=== PATIENT | male | born 1955 | race Caucasian/White ===

== ENCOUNTER 2019-10-19 07:57 | Outpatient (CLI) | payer MEDICARE, SELFPAY ==
[2019-10-19 08:23] LABS: INR 2.4; Prothrombin Time 24.4 Seconds (9.64-11.0)
[2019-10-19 08:44] LABS: Cholesterol 142 mg/dL (0-200); HDL Direct 33 mg/dL (40-60); LDL Cholesterol Calculated 90 mg/dL (<130); Triglycerides 93 mg/dL (0-150)
== END 2019-10-19 07:58 | disposition home or self-care (01) ==
PROVIDERS: PCP Family Medicine; Visit Provider Family Medicine
DX: I48.91 Unspecified atrial fibrillation (principal); Z79.01 Long term (current) use of anticoagulants; I25.10 Atherosclerotic heart disease of native coronary artery without angina pectoris
CPT/HCPCS: 36415; 80061; 85610

== ENCOUNTER 2020-02-06 07:34 | Outpatient (RCR) | payer MEDICARE, SELFPAY ==
[2019-12-08 07:57] LABS: INR 2.6; Prothrombin Time 25.6 Seconds (9.64-11.0)
[2020-02-06 08:01] LABS: INR 2.8; Prothrombin Time 27.9 Seconds (9.64-11.0)
== END 2020-03-07 23:59 | disposition home or self-care (01) ==
LOC: CHSLAB 07:34
PROVIDERS: PCP Family Medicine; Visit Provider Internal Medicine Cardiovascular Disease
DX: I48.91 Unspecified atrial fibrillation (principal); Z79.01 Long term (current) use of anticoagulants
CPT/HCPCS: 36415; 85610

== ENCOUNTER 2020-05-02 08:44 | Outpatient (CLI) | payer MEDICARE, SELFPAY ==
--- NOTE | 2020-05-02 09:15 | ECG_ITS ---
Measurements Intervals [place] Rate: 66 P: 36 [place]: 206 QRS: 49 QRSD: 102 T: 93 QT: 382 QTc: 403 Interpretive Statements SINUS RHYTHM ANTEROSEPTAL INFARCT, AGE INDETERMINATE BORDERLINE ST-T WAVE ABNORMALITY- HIGH LATERAL LEADS ABNORMAL ECG Electronically Signed On 05-02-2020 10:11:46 CDT by Andrew Richardson D.O.
[2020-05-02 10:14] LABS: Anion Gap 6 mmol/L (8-16); Blood Urea Nitrogen 15 mg/dL (7-18); Calcium 8.7 mg/dL (8.5-10.1); Carbon Dioxide 31 mmol/L (21-32); Chloride 103 mmol/L (98-108); Estimated Glomerular Filt Rate > 60; Glucose 106 mg/dL (70-99); Osmolality Calculated 290 mOsm/kg (285-295); Potassium 4.4 mmol/L (3.5-5.1); Sodium 140 mmol/L (136-145)
== END 2020-05-02 08:45 | disposition home or self-care (01) ==
PROVIDERS: PCP Family Medicine
DX: G56.02 Carpal tunnel syndrome, left upper limb (principal); Z01.818 Encounter for other preprocedural examination
CPT/HCPCS: 36415; 80048; 93005

== ENCOUNTER 2020-06-04 08:19 | Outpatient (RCR) | payer MEDICARE, SELFPAY ==
[2020-03-09 08:47] LABS: Prothrombin Time 59.4 Seconds (9.64-11.0)
[2020-03-09 09:12] LABS: INR 6.1
[2020-03-12 07:43] LABS: INR 1.6; Prothrombin Time 16.3 Seconds (9.64-11.0)
[2020-03-12 07:49] LABS: Hemoglobin A1C 6.7 % (<5.7)
[2020-03-19 08:03] LABS: INR 2.1; Prothrombin Time 21.5 Seconds (9.64-11.0)
[2020-04-25 09:25] LABS: INR 3.3; Prothrombin Time 32.3 Seconds (9.64-11.0)
[2020-05-30 09:16] LABS: Prothrombin Time 50.3 Seconds (9.64-11.0)
[2020-05-30 09:28] LABS: INR 5.2
[2020-06-04 08:37] LABS: INR 3.2
== END 2020-06-07 23:59 | disposition home or self-care (01) ==
LOC: CHSLAB 08:19
PROVIDERS: PCP Family Medicine; Visit Provider Internal Medicine Cardiovascular Disease
DX: I48.91 Unspecified atrial fibrillation (principal); Z79.01 Long term (current) use of anticoagulants; E11.9 Type 2 diabetes mellitus without complications
CPT/HCPCS: 36415; 83036; 85610

== ENCOUNTER 2020-08-13 10:25 | Outpatient (CLI) | payer MEDICARE, SELFPAY ==
[2020-08-15 18:59] LABS: Hepatitis A Antibody IgM Nonreactive; Hepatitis B Core Antibody Nonreactive (Nonreactive); Hepatitis B Surface Antigen Nonreactive (Nonreactive); Hepatitis C Signal to Cutoff 0.01 ratio (<1.00); Hepatitis C Virus Antibody Nonreactive (Nonreactive)
== END 2020-08-13 10:26 | disposition home or self-care (01) ==
PROVIDERS: PCP Family Medicine; Visit Provider Family Medicine
DX: Z11.59 Encounter for screening for other viral diseases (principal); R11.0 Nausea
CPT/HCPCS: 36415; 80074

== ENCOUNTER 2020-08-20 09:08 | Outpatient (RCR) | payer MEDICARE, SELFPAY ==
[2020-06-13 14:11] LABS: INR 3.1; Prothrombin Time 30.7 Seconds (9.64-11.0)
[2020-07-16 10:11] LABS: INR 4.1; Prothrombin Time 41.9 Seconds (9.50-12.10)
[2020-07-24 09:05] LABS: INR 1.6; Prothrombin Time 17.7 Seconds (9.50-12.10)
[2020-08-20 09:32] LABS: INR 2.7; Prothrombin Time 28.6 Seconds (9.50-12.10)
== END 2020-09-11 23:59 | disposition home or self-care (01) ==
LOC: CHSLAB 09:08
PROVIDERS: PCP Family Medicine; Visit Provider Internal Medicine Cardiovascular Disease
DX: I48.91 Unspecified atrial fibrillation (principal); Z79.01 Long term (current) use of anticoagulants
CPT/HCPCS: 36415; 85610

== ENCOUNTER 2020-12-11 08:21 | Outpatient (RCR) | payer MEDICARE, SELFPAY ==
[2020-09-27 09:30] LABS: INR 2.6; Prothrombin Time 26.5 Seconds (9.50-12.10)
[2020-11-05 08:58] LABS: INR 2.9; Prothrombin Time 29.3 Seconds (9.50-12.10)
[2020-12-11 08:51] LABS: INR 2.3; Prothrombin Time 23.6 Seconds (9.50-12.10)
== END 2020-12-26 23:59 | disposition home or self-care (01) ==
LOC: CHSLAB 08:21
PROVIDERS: PCP Family Medicine; Visit Provider Internal Medicine Cardiovascular Disease
DX: I48.91 Unspecified atrial fibrillation (principal)
CPT/HCPCS: 36415; 85610

== ENCOUNTER 2021-03-11 12:15 | Outpatient (CLI) | payer MEDICARE, SELFPAY ==
--- NOTE | ~2021-03-11 | US_ITS ---
EXAMINATION: US arterial ankle brachial ind DATE: 03/11/2021 12:51 INDICATION: Peripheral vascular disease, unspecified. TECHNIQUE: Segmental pressures and plethysmographic and Doppler waveforms of the brachial and lower e xtremity arteries were obtained. COMPARISON: None. FINDINGS: Right and left brachial artery pressures of 150 mm Hg and 153 mm Hg, respectively, are concordant (no rmal difference <= 30 mmHg). The right ankle-brachial index (LEANA) is 0.99 (normal >= 0.9-1.0). The right great toe-brachial index (TBI) is 0.44 (normal >= 0.65). Arterial Doppler waveforms are biphasic at the ankle. The left LEANA could not be measured due to inability to cuff-occlude the arteries. The left TBI is 0.4 7. Arterial Doppler waveforms are biphasic at the ankle. IMPRESSION: 1. Decreased TBIs, borderline decreased right LEANA, and nondiagnostic left LEANA, consistent with arteri al occlusive disease. Reviewed, dictated and finalized at location A. IMPRESSION: 1. Decreased TBIs, borderline decreased right LEANA, and nondiagnostic left LEANA, consistent with arterial occlusive disease.
== END 2021-03-11 12:16 | disposition home or self-care (01) ==
LOC: CHSIMG 12:17
PROVIDERS: PCP Family Medicine; Visit Provider Family Medicine
DX: I73.9 Peripheral vascular disease, unspecified (principal)
CPT/HCPCS: 93922

== ENCOUNTER 2021-03-18 07:24 | Outpatient (CLI) | payer MEDICARE, SELFPAY ==
[2021-03-18 08:18] LABS: INR 1.8; Prothrombin Time 18.2 Seconds (9.50-12.10)
[2021-03-18 11:06] LABS: Alanine Aminotransferase 44 U/L (16-63); Alkaline Phosphatase 91 U/L (46-116); Anion Gap 10 mmol/L (8-16); Aspartate Amino Transferase 23 U/L (15-37); Bilirubin,Total 0.6 mg/dL (0.00-1.00); Blood Urea Nitrogen 16 mg/dL (7-18); Calcium 9.1 mg/dL (8.5-10.1); Carbon Dioxide 27 mmol/L (21-32); Chloride 103 mmol/L (98-108); Cholesterol 122 mg/dL (0-200); Estimated Glomerular Filt Rate > 60; Glucose 126 mg/dL (70-99); HDL Direct 31 mg/dL (40-60); LDL Cholesterol Calculated 72 mg/dL (<130); Osmolality Calculated 293 mOsm/kg (285-295); Potassium 4.4 mmol/L (3.5-5.1); Sodium 140 mmol/L (136-145); Total Protein 7.2 g/dL (6.4-8.2); Triglycerides 97 mg/dL (0-150)
[2021-03-18 13:05] LABS: Creatinine Urine 70.39 mg/dL (40-278); Hemoglobin A1C 6.5 % (<5.7); MALB Creatinine Ratio 18.4 mg/g (0-30); Microalbumin Urine Random < 13.0 mg/L
== END 2021-03-18 07:25 | disposition home or self-care (01) ==
LOC: CHSIMG 07:28
PROVIDERS: PCP Family Medicine; Visit Provider Family Medicine
DX: E11.9 Type 2 diabetes mellitus without complications (principal); I48.91 Unspecified atrial fibrillation; I73.9 Peripheral vascular disease, unspecified
CPT/HCPCS: 36415; 80053; 80061; 82043; 83036; 85610

== ENCOUNTER 2021-03-19 08:16 | Outpatient (CLI) | payer MEDICARE, SELFPAY ==
--- NOTE | ~2021-03-19 | CT_ITS ---
EXAMINATION: CTA abd aorta runoff DATE: 03/19/2021 09:01 INDICATION: Peripheral vascular disease, unspecified TECHNIQUE: Computed tomographic angiography (CTA) of the abdomen, pelvis, and both lower extremities was performed with 150 mL Omnipaque-350 intravenous contrast. The dose-length product (DLP) was 1683. 82 mGy-cm. Maximum intensity projection 3D-reconstructions of the arteries were created by the techno logist on a separate workstation. Automated exposure control and iterative reconstruction technique w ere employed. COMPARISON: None. FINDINGS: ABDOMINAL AORTA AND ITS BRANCHES: There is minimal calcified atherosclerosis of aorta. There is aortic no dissection or aneurysm. The l eft hepatic artery arises from the celiac axis. The right hepatic artery arises from the superior mes enteric artery. The pancreatic duodenal artery is a branch of the right hepatic artery. There are sin gle renal arteries bilaterally. There is calcified atherosclerosis without hemodynamically significan t stenosis of the inferior mesenteric artery. PELVIC VASCULATURE: There is calcified atherosclerosis without hemodynamically significant stenosis in the common iliac a rteries. External iliac arteries are unremarkable. There is calcified atherosclerosis with mild steno sis of bilateral internal iliac arteries. RIGHT LOWER EXTREMITY VASCULATURE: There is calcified atherosclerosis without hemodynamically significant stenosis of the distal common femoral artery. The profunda femoral artery demonstrates mild atherosclerosis without hemodynamically significant stenosis. There is minimal calcified atherosclerosis of the distal superficial femoral a rtery, popliteal artery, and the tibial peroneal trunk without hemodynamically significant stenosis. There are segmental areas of severe stenosis in the anterior tibial artery. There are some areas of s evere stenosis in the proximal peroneal artery which is otherwise normal. The posterior tibial artery is unremarkable. There is a three-vessel runoff at the ankle. LEFT LOWER EXTREMITY VASCULATURE: There is calcified atherosclerosis without hemodynamically significant stenosis of the common femoral there is mild atherosclerosis of the profunda femoral artery. There is multifocal atherosclerosis an d mild stenosis of the superficial femoral artery and the popliteal artery. There is moderate stenosi s of the tibioperoneal trunk. The anterior tibial artery demonstrates multiple segmental areas of sev ere stenosis. There are short segments of severe stenosis in the posterior tibial artery. The peronea l artery is unremarkable. There is a three-vessel runoff at the ankle. ADDITIONAL FINDINGS: The lung bases are clear. The heart size is normal. The liver, spleen, pancreas, gallbladder, and adr enal glands are normal. The right kidney is unremarkable. There is a 3 mm nonobstructing stone of the left kidney. No pathologically enlarged abdominal or pelvic lymph nodes are identified. There is no free intraperitoneal gas or evidence of bowel obstruction. There is a fat-containing left inguinal he rnia. IMPRESSION: 1. Peripheral vascular disease as detailed above. Reviewed, dictated and finalized at location B.
== END 2021-03-19 08:17 | disposition home or self-care (01) ==
LOC: CHSIMG 08:17
PROVIDERS: PCP Family Medicine; Visit Provider Family Medicine
DX: I73.9 Peripheral vascular disease, unspecified (principal); I48.91 Unspecified atrial fibrillation; E11.9 Type 2 diabetes mellitus without complications
CPT/HCPCS: 75635; Q9967

== ENCOUNTER 2021-03-26 07:38 | Outpatient (RCR) | payer MEDICARE, SELFPAY ==
[2021-01-10 07:55] LABS: INR 3.8; Prothrombin Time 37.8 Seconds (9.50-12.10)
[2021-01-18 08:07] LABS: INR 2.8; Prothrombin Time 28.2 Seconds (9.50-12.10)
[2021-02-19 08:00] LABS: INR 2.1; Prothrombin Time 21.7 Seconds (9.50-12.10)
[2021-03-26 08:03] LABS: INR 2.3; Prothrombin Time 23.2 Seconds (9.50-12.10)
== END 2021-04-10 23:59 | disposition home or self-care (01) ==
LOC: CHSLAB 07:38
PROVIDERS: PCP Family Medicine; Visit Provider Internal Medicine Cardiovascular Disease
DX: I48.91 Unspecified atrial fibrillation (principal)
CPT/HCPCS: 36415; 85610

== ENCOUNTER 2021-05-29 08:00 | Outpatient (RCR) | payer MEDICARE, SELFPAY ==
[2021-04-26 09:36] LABS: Prothrombin Time 20.4 Seconds (9.50-12.10)
[2021-05-29 08:22] LABS: INR 3.4
== END 2021-07-25 23:59 | disposition home or self-care (01) ==
LOC: CHSLAB 08:00
PROVIDERS: PCP Family Medicine; Visit Provider Internal Medicine Cardiovascular Disease
DX: I48.91 Unspecified atrial fibrillation (principal)
CPT/HCPCS: 36415; 85610

== ENCOUNTER 2021-06-26 09:08 | Outpatient (CLI) | payer MEDICARE, SELFPAY ==
[2021-06-26 10:00] LABS: SARS-CoV-2 RNA PCR Positive (Negative)
== END 2021-06-26 09:09 | disposition home or self-care (01) ==
LOC: CHSLAB 09:12
PROVIDERS: PCP Family Medicine; Visit Provider Nurse Practitioner Family
DX: U07.1 COVID-19 (principal)
CPT/HCPCS: C9803; U0003; U0005

== ENCOUNTER 2021-06-28 09:05 | Outpatient (CLI) | payer MEDICARE, SELFPAY ==
--- NOTE | 2021-06-28 09:20 | PC.NURSE ---
Pt to room 211 amb with spouse. Oriented to room. Regeneron infusion explained. Consent read and signed by patient. Pt has no questions or complaints. Up in chair. Reminded to call with needs.
[2021-06-28] MEDS: ACETAMINOPHEN 325 MG TABLET 650 MG PO (09:40)
[2021-06-28 09:50] VITALS: BP 122/61; PULSE 70; RESP 16; TEMP 36.1; O2SAT 94
[2021-06-28] MEDS: diphenhydrAMINE HCl CAP 25 MG CAPSULE PO (10:16)
[2021-06-28] MEDS: FAMOTIDINE 20 MG TABLET PO (10:16)
--- NOTE | 2021-06-28 11:39 | PC.NURSE ---
Pt has no questions or complaints. Tolerated infusion well. Discharge to home amb with spouse.
== END 2021-06-28 09:06 | disposition home or self-care (01) ==
LOC: CHSTREATRM 09:08
PROVIDERS: PCP Nurse Practitioner Family; Visit Provider Nurse Practitioner Family
DX: U07.1 COVID-19 (principal)
CPT/HCPCS: A9270; J7050; M0243; Q0244

== ENCOUNTER 2021-07-02 14:15 | Outpatient (CLI) | payer MEDICARE, SELFPAY ==
--- NOTE | ~2021-07-02 | XR_ITS ---
EXAMINATION: XR chest 2V DATE: 07/02/2021 14:33 INDICATION: Shortness of breath and cough. TECHNIQUE: Frontal and lateral views of the chest were obtained. COMPARISON: CT 03/19/2021 FINDINGS: There are airspace opacities in all lung zones bilaterally with a peripheral predominance. No pleural effusion or pneumothorax. The heart size is normal. Median sternotomy wires and mediastina l surgical clips are seen, likely from prior coronary artery bypass grafting. IMPRESSION: 1. Diffuse lung disease, consistent with COVID-19 pneumonia. Reviewed, dictated and finalized at location B. G OPERATOR
--- NOTE | 2021-07-02 14:45 | ECG_ITS ---
Measurements Intervals [place] Rate: 44 P: SD: 0 QRS: -3 QRSD: 103 T: 58 QT: 429 QTc: 368 Interpretive Statements SINUS RHYTHM WITH 2ND DEGREE AV BLOCK, 2:1 OR MOBITZ TYPE I OR II ANTEROSEPTAL INFARCT, AGE INDETERMINATE ST-T WAVE ABNORMALITY IN HIGH LATERAL LEADS- CONSIDER ISCHEMIA BASELINE WANDER- I, II, III, AVR, AVL, AVF ABNORMAL ECG Electronically Signed On 07-02-2021 16:41:24 TOUR GUIDE by Andrew Richardson D.O.
== END 2021-07-02 14:16 | disposition home or self-care (01) ==
LOC: CHSCARD 14:18
PROVIDERS: PCP Family Medicine; Visit Provider Nurse Practitioner Family
DX: U07.1 COVID-19 (principal)
CPT/HCPCS: 71046; 93005

== ENCOUNTER 2021-07-02 14:53 | Emergency (ER) | payer MEDICARE, SELFPAY ==
[2021-07-02] VITALS (9 sets, daily range): BP systolic 126–160; BP diastolic 50–90; PULSE 43–45; RESP 16–20; TEMP 36.6–37.3; O2SAT 84–98
--- NOTE | ~2021-07-02 | CT_ITS ---
EXAMINATION: CT diagnostic chest wo con DATE: 07/02/2021 17:19 INDICATION: Shortness of breath, hypoxia. Covid 19. TECHNIQUE: Computed tomography (CT) of the chest was performed without intravenous contrast. The dose -length product was 658.23 mGy-cm. Automated exposure control and iterative reconstruction technique were employed. COMPARISON: Chest x-ray dated 07/02/2021 FINDINGS: Cardiomegaly. No significant pleural or pericardial effusion. Multiple borderline sized med iastinal lymph nodes, likely reactive. There is atherosclerosis. No evidence of aneurysm. Cardiomegal y. There is widespread patchy groundglass opacification throughout both lungs, consistent with pneumonia . No endobronchial lesions. Status post median sternotomy for CABG. Mild thoracic spondylosis. IMPRESSION: 1. Widespread patchy groundglass opacification of both lungs, consistent with pneumonia. Reviewed, dictated and finalized at location A. OW AGENT IMPRESSION: 1. Widespread patchy groundglass opacification of both lungs, consistent with p neumonia.
[2021-07-02 15:58] LABS: Basophils Absolute Auto 0.01 K/mm3 (0.00-0.10); Basophils Percent Auto 0.1 % (0.0-1.0); Eosinophils Absolute Auto 0.04 K/mm3 (0.02-0.50); Eosinophils Percent Auto 0.5 % (1.0-6.0); Hematocrit 34.3 % (37.0-46.0); Hemoglobin 11.9 g/dL (12.4-15.3); Immature Granulocyte Absolute 0.07 K/mm3 (0.00-0.00); Immature Granulocyte Percent A 0.8 % (0.0-0.0); Lymphocytes Absolute Auto 0.42 K/mm3 (1.10-4.50); Lymphocytes Percent Auto 4.8 % (18.0-42.0); Mean Corpuscular HGB Conc 34.7 g/dL (32.0-36.0); Mean Corpuscular Hemoglobin 30.1 pg (27.0-31.0); Mean Corpuscular Volume 86.8 fL (78.0-102.0); Mean Platelet Volume 9.6 fl (8.7-11.0); Monocytes Absolute Auto 1.04 K/mm3 (0.10-0.90); Monocytes Percent Auto 11.8 % (2.0-11.0); Neutrophils Absolute Auto 7.3 K/mm3 (1.7-7.2); Platelet Count Result 279 K/mm3 (150-420); Red Blood Count 3.95 M/mm3 (4.70-6.10); Red Cell Distribution Width 13.6 % (11.6-14.4)
[2021-07-02] MEDS: DEXAMETHASONE SOD PHOS INJ 4 MG/ML VIAL IV PUSH (16:06)
[2021-07-02] MEDS: PROMETHAZINE HCL 25 MG/ML AMPUL IM (16:06)
[2021-07-02] MEDS: SODIUM CHLORIDE 0.9% IV 500 ML 999 ML IV CONT ×2 (16:06→18:09)
[2021-07-02 16:07] LABS: Alanine Aminotransferase 52 U/L (16-63); Albumin Level 2.6 g/dL (3.4-5.0); Alkaline Phosphatase 81 U/L (46-116); Anion Gap 13 mmol/L (8-16); Aspartate Amino Transferase 33 U/L (15-37); Bilirubin,Total 0.7 mg/dL (0.00-1.00); Blood Urea Nitrogen 14 mg/dL (7-18); Calcium 8.4 mg/dL (8.5-10.1); Carbon Dioxide 22 mmol/L (21-32); Chloride 92 mmol/L (98-108); Estimated CRCL calculation 65 ml/min; Estimated Glomerular Filt Rate > 60; Glucose 218 mg/dL (70-99); Lactic Acid Reflex 2.6 mmol/L (0.4-2.0); Osmolality Calculated 271 mOsm/kg (285-295); Potassium 3.8 mmol/L (3.5-5.1); Sodium 127 mmol/L (136-145); Total Protein 6.5 g/dL (6.4-8.2)
[2021-07-02] MEDS: ASPIRIN 325 MG ENTERIC TABLET PO (16:07)
[2021-07-02] MEDS: UMECLIDINIUM BROMIDE 62.5 MCG ELLIPTA 1 PUFF INHALATION (16:12)
[2021-07-02] MEDS: ALBUTEROL SULFATE (*SP) INHALER 2 PUFF INHALATION (16:12)
[2021-07-02 16:18] LABS: White Blood Count 8.8 K/mm3 (4.8-10.8)
[2021-07-02 16:41] LABS: INR > 8.0; Partial Thromboplastin Time 91.2 SEC (23.90-30.70); Prothrombin Time > 90.0 Seconds (9.64-11.0)
[2021-07-02 16:42] LABS: Base Excess ABG -0.3 mmol/L (0-2); Device ROOM AIR; HCO3 ABG 21.5 mmol/L (23-29); Modified Allen's Test Pass; Oxygen Content ABG 17.1 %vol (16.0-22.0); Oxygen Saturation ABG 96.1 % (95-97); Oxyhemoglobin 94.8 % (94-100); PCO2 ABG 27.4 mmHg (35-45); PO2 ABG 81.3 mmHg (75-85); Site Drawn LEFT RADIAL; Total Hemoglobin 12.8 g/dL (12.0-18.0); pH ABG 7.51 (7.35-7.45)
[2021-07-02] MEDS: PHYTONADIONE 5 MG TABLET 10 MG PO (16:49)
--- NOTE | 2021-07-02 17:23 | ECG_ITS ---
Measurements Intervals [place] Rate: 43 P: -15 IN: 154 QRS: -3 QRSD: 101 T: 147 QT: 677 QTc: 573 Interpretive Statements SINUS BRADYCARDIA ANTEROSEPTAL INFARCT, AGE INDETERMINATE CONSIDER INFERIOR INFARCT, AGE INDETERMINATE BASELINE ARTIFACT- I, II, III, AVR, AVL, AVF, V1-V6 ABNORMAL ECG Electronically Signed On 07-02-2021 19:29:02 HAND OR MACHINE PASTER by Andrew Richardson D.O.
[2021-07-02 17:29] LABS: Appearance Urine Clear (Clear); Bilirubin Urine 1+ (Negative); Color Urine Dark Yellow (Yellow); Glucose Urine UA Trace (Negative); Ketones Urine Trace (Negative); Leukocyte Esterase Ur Negative (Negative); Nitrate Urine Negative (Negative); Protein Urine 3+ (Negative); Specific Grav Ur >= 1.030 (1.010-1.020); Urobilinogen Urine 0.2 mg/dL (0.2-1.0)
[2021-07-02 17:36] LABS: Add Urine Microscopic? YES; Blood Urine Trace-Intact (Negative); RBC Urine 0-2 /hpf (0-2); Squamous Epithelial Cell Urine Few /hpf (Few); WBC Urine None seen /hpf (0-3)
[2021-07-02 17:37] LABS: Bacteria Urine 1+ /hpf; Mucus Urine Moderate /lpf
[2021-07-02 18:00] LABS: Reflex Lactic Acid Yes or No Add Lactic
--- NOTE | 2021-07-02 18:07 | ED.SOB ---
HPI - SOB/Dyspnea General Chief Complaint: Shortness of Breath/Dyspnea Stated Complaint: covid positive Time Seen by Provider: 07/02/21 14:55 Source: patient and RN notes reviewed Mode of arrival: ambulatory Limitations: no limitations History of Present Illness MD elicited complaint: shortness of breath Onset (ago): week(s) (3) Timing: progressively worsening Severity: moderate Exacerbating factors: exertion Relieving factors: oxygen and bronchodilators Known history of: other (covid-19) Associated symptoms: fever, cough, wheezing and nausea/vomiting Treatment prior to arrival: none Related Data Home oxygen amount: none Home Medications Medication Instructions Recorded Confirmed aspirin 81 mg tablet,delayed 81 mg PO DAILY 08/22/19 07/02/21 release atorvastatin 80 mg tablet 80 mg PO HS 08/22/19 07/02/21 carvedilol 6.25 mg tablet 6.25 mg PO Q12H 08/22/19 07/02/21 ezetimibe 10 mg tablet 10 mg PO DAILY 08/22/19 07/02/21 quinapril 20 mg tablet 20 mg PO DAILY 08/22/19 07/02/21 warfarin 4 mg tablet 8 mg PO DAILY tablet 08/22/19 07/02/21 metformin 1,000 mg PO BID 07/02/21 07/02/21 tamsulosin 0.4 mg PO DAILY 07/02/21 07/02/21 Allergies Allergy/AdvReac Type Severity Reaction Status Date / Time Penicillins Allergy Unknown Rash Verified 07/02/21 15:35 Review of Systems Review of Systems: All systems reviewed & are unremarkable except as noted in HPI and below Respiratory: Respiratory: Reports cough, Reports dyspnea and Reports wheezing PMFSH Past Medical History Medical History Anticoagulated on Coumadin CAD (coronary artery disease) Carpal tunnel syndrome DM2 (diabetes mellitus, type 2) Hyperlipidemia Hypertension Overweight Surgical History Surgical History H/O mechanical aortic valve replacement Hx of artificial heart valve replacement Hx of cataract surgery S/P triple vessel bypass Family History Family History Father , Age 81 Diabetes mellitus Lung cancer Mother , Age 89 Rheumatoid arthritis Social History Social History Smoking status: Former smoker Tobacco type: smokeless tobacco Smokeless tobacco user: chewing tobacco Additional smoking assessment comments: Quit Smokeless tobacco in 1999. Used for 25 years Additional living arrangements comments: . 1 adult child. Exam Const: General: no acute distress, alert and ill appearing Nutritional Appearance: obese Orientation/consciousness: patient oriented x3 HENMT: Head: normal to inspection Ears: external ears normal and TM's normal bilaterally General nose exam: Normal external nose present and Normal nares present Mouth: Yes lip normal and Yes moist mucous membranes Teeth and gingiva: dentition normal Throat: posterior oropharynx normal Eyes: Conjunctivae: conjunctivae normal Pupils: Equal, round and reactive pupils present EOM: EOMs intact bilaterally Neck: Neck: normal visual inspection and no lymphadenopathy Chest: Chest palpation & inspection: normal inspection of the chest Resp: Effort & Inspection: tachypneic Auscultation: crackles, rales, rhonchi and wheezes Cardio: Rate: bradycardic GI: GI Palp: Yes Soft to palpation and No Tenderness to palpation present (GI) Auscultation: normal bowel sounds : General: Yes bladder normal to palpation and Yes no CVA tenderness Back/Spine/Pelvis: Back: no CVA tenderness Skin: General skin exam: normal color Rashes: no rashes Neuro: General: patient oriented x3, moves all extremities, no meningeal signs, no focal motor deficits and CN's II-XI intact bilaterally Extrem: General: normal to inspection and no pedal edema Psych: Mental Status: mental status grossly normal Affect: normal affect Attitude: cooperative Tho
[2021-07-02] MEDS: AZITHROMYCIN 250 MG TABLET 500 MG PO (18:10)
[2021-07-02 18:19] LABS: Lactic Acid 2.3 mmol/L (0.4-2.0)
[2021-07-02 18:21] LABS: Troponin I 24.2 ng/L (0.00-60.4)
[2021-07-02] MEDS: GLUCAGON FOR INJ 1 MG VIAL IM (18:29)
--- NOTE | 2021-07-02 18:46 | PC.NURSE ---
Carisa Jolly called for ALS transport to [place].
[2021-07-02] MEDS: SODIUM CHLORIDE 0.9% IV 1,000 ML 150 ML IV CONT (18:59)
--- NOTE | 2021-07-02 19:30 | PC.NURSE ---
Took Pt report on Pt from Laisha RODRÍGUEZ. Pt. resting comfortable on stretcher at this time. Awaiting EMS for transport. No c./O pain or discomfort. 0 change in condition.
--- NOTE | 2021-07-02 19:54 | PC.NURSE ---
EMS here at this time Pt cont the same. Pt pkged for transport without incident.
[2021-07-02 22:40] LABS: Glucose Point of Care 283 mg/dl (65-105)
== END 2021-07-02 20:03 | disposition short-term general hospital (02) ==
PROVIDERS: Emergency Provider Emergency Medicine; PCP Family Medicine
DX: U07.1 COVID-19 (principal); R00.1 Bradycardia, unspecified; E86.0 Dehydration; J18.9 Pneumonia, unspecified organism; Z79.01 Long term (current) use of anticoagulants; I25.10 Atherosclerotic heart disease of native coronary artery without angina pectoris; E11.9 Type 2 diabetes mellitus without complications; E78.5 Hyperlipidemia, unspecified; I10 Essential (primary) hypertension; Z87.891 Personal history of nicotine dependence
CPT/HCPCS: 36415; 36600; 71250; 80053; 81001; 82805; 82948; 83605; 84484; 85025; 85610; 85730; 87040; 93005; 96361; 96365; 96372; 96375; 99285; A9270; J0696; J1100; J1610; J2550; J7030; J7040

== ENCOUNTER 2021-07-02 21:45 | Inpatient (IN) | payer MEDICARE, SELFPAY ==
--- NOTE | ~2021-07-02 | XR_ITS ---
EXAMINATION: XR chest 1V portable DATE: 07/05/2021 12:20 INDICATION: COVID pneumonia with increasing oxygen requirements TECHNIQUE: frontal view of the chest was obtained. COMPARISON: Chest radiograph and CT dated 07/02/2021 FINDINGS: Lung volumes appear decreased which may be due to more lordotic positioning the current study. Again seen are scattered patchy bilateral airspace opacities which appear to have progressed since the prio r study particularly in the left lung. No pleural effusion or pneumothorax. Cardiomegaly Median barnett otomy wires and mediastinal surgical clips are seen, likely from prior coronary artery bypass graftin g. Aortic valve repair. IMPRESSION: 1. Interval progression of bilateral scattered patchy airspace opacities consistent with worsening CO VID pneumonia. 2. Cardiomegaly. Reviewed, dictated and finalized at location A. ER SOUND IMPRESSION: 1. Interval progression of bilateral scattered patchy airspace opacities consis tent with worsening COVID pneumonia. 2. Cardiomegaly.
[2021-07-02 20:00] VITALS: BP 138/48; PULSE 44; RESP 18; TEMP 36.2; O2SAT 94
[2021-07-02] MEDS: INSULIN ASPART (*BKC) 100 UNITS/ML SUB-Q (21:50)
--- NOTE | 2021-07-02 21:51 | PM.IMHP ---
H&P: HPI History of Present Illness Date/Time: 07/02/21 21:51 this is a 66-year-old male patient who initially went to [facility] and was seen by Dr. Beltran who stated that the patient's heart rate was in the 30s and 40s and the patient was feeling dizzy. The ER physician at [facility] felt that the patient needed higher level care transfer the patient here. The patient stated that he was having symptoms for the last 3 weeks and tested positive for COVID-19 3 weeks ago. The patient stated that he is more short of breath. He stated that he did taken infusion at [facility] outpatient ace. He stated that did not help. He has had a cough and generalized weakness. He still has his taste and smell. H&H is 11.9 and 34.3. Patient's INR is greater than 8.0 today. PH 7.51 CO2 97.4. Sodium 127. Glucose 218. Lactic acid 2.6 and then 2.3. Blood sugar 218. Patient was noted to be positive for COVID on 06/26/2021. A chest chest CT was read as widespread patchy ground-glass opacities of both lungs, consistent with pneumonia. Chest x-ray was read as diffuse lung disease, consistent with COVID-19 pneumonia. The patient is being admitted for inpatient status on the date of service of 07/02/2021. Chief Complaint: Hypoxia and bradycardia Review of Systems Review of Systems: All systems reviewed & are unremarkable except as noted in HPI and below Constitutional: Constitutional: Reports as per HPI and Reports no additional constitutional complaints Eyes: Eyes: Reports as per HPI and Reports no additional eye complaints ENT: Reports system reviewed and no additional complaints, except as documented and Reports Normal hearing present Cardiovascular: Cardiovascular: Reports no additional cardiovascular complaints Respiratory: Respiratory: Reports no additional respiratory complaints and Reports no additional respiratory complaints Gastrointestinal: Gastrointestinal: Reports as per HPI and Reports no additional gastrointestinal complaints Musculoskeletal: Musculoskeletal: Reports no additional musculoskeletal complaints Integumentary/Breasts: Skin/Breast: Reports system reviewed and no additional complaints, except as docu and Reports as per HPI Neurologic: Reports system reviewed and no additional complaints, except as documented, Reports as per HPI and Reports Normal hearing present Psychiatric: Psychiatric: Reports no additional psychiatric complaints and Reports as per HPI Endocrine: Endocrine: Reports no additional endocrine complaints Hematologic/Lymphatic: Hematologic/Lymphatic: Reports no additional hematologic/lymphatic complaints Allergic/Immunologic: Allergic/Immunologic: Reports no additional allergic/immunologic complaints [facility] Past Medical History Medical History (Updated 07/02/21 @ 18:57 by Faisal Beltran MD) Anticoagulated on Coumadin CAD (coronary artery disease) Carpal tunnel syndrome DM2 (diabetes mellitus, type 2) Hyperlipidemia Hypertension Overweight Surgical History Surgical History (Updated 07/02/21 @ 21:57 by Mei Cosme NP) H/O mechanical aortic valve replacement History of carpal tunnel release Left hand Hx of artificial heart valve replacement Hx of cataract surgery S/P triple vessel bypass Family History Family History Father , Age 81 Diabetes mellitus Lung cancer CAD (coronary artery disease) Mother , Age 89 Rheumatoid arthritis Social History Social History (Updated 07/02/21 @ 22:00 by Mei Cosme NP) Social History: The patient lives at home with his . He has 1 biological child he is a former smoker. 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 He is a former smoker and also former smokeless tobacco. He denies any alcohol marijuana or illicit drugs. His is the durable power privacy attorney for healthcare. Code status full code Tobacco type: smokeless tobacco Smokeless tobacco user
--- NOTE | 2021-07-02 22:33 | PC.NURSE ---
Pt, direct transport from [place], arrived via stretcher at 2100.
[2021-07-02 22:41] LABS: Prothrombin Time 76.5 Seconds (11.1-14.7)
[2021-07-02 22:43] LABS: Alanine Aminotransferase 42 U/L (4-50); Albumin Level 3.4 g/dL (3.5-5.1); Alkaline Phosphatase 80 U/L (38-126); Anion Gap 9 mmol/L (8-16); Aspartate Amino Transferase 36 U/L (17-59); Bilirubin,Total 0.6 mg/dL (0.2-1.3); Blood Urea Nitrogen 16 mg/dL (9-20); Calcium 8.4 mg/dL (8.4-10.2); Carbon Dioxide 23 mmol/L (22-30); Chloride 91 mmol/L (98-107); Estimated Glomerular Filt Rate > 60; Glucose 281 mg/dL (65-110); Hemoglobin A1C 6.8 % (<5.7); Magnesium 1.4 mg/dL (1.6-2.3); Potassium 4.7 mmol/L (3.4-5.0); Sodium 123 mmol/L (137-145)
[2021-07-02 22:47] LABS: Alanine Aminotransferase 42 U/L (4-50)
[2021-07-02 22:49] LABS: INR 10.1
[2021-07-02] MEDS: PHYTONADIONE INJ 10 MG/ML AMP SUB-Q (22:58)
[2021-07-02] MEDS: REMDESIVIR 200 MG/NS 250 ML 200 MG/250 ML BAG 250 MG IVPB (23:00)
[2021-07-02 23:14] VITALS: BMI 36.8
[2021-07-03] VITALS (11 sets, daily range): BP systolic 129–162; BP diastolic 41–92; PULSE 43–80; RESP 16–27; TEMP 36.2–36.7; O2SAT 90–96
--- NOTE | 2021-07-03 04:01 | ADMGEN ---
This patient, Herminio Gil, was admitted to [facility] Surg Room 330-01. Patient/family oriented to hospital policies and general routines including ID bracelet, bed and alarms, visiting hours, pain management, procedures, bathroom and other care routines, personal items, smoking policy, room service/diet, and visiting hours. Information on how to activate the Rapid Response Team has been discussed. Patient/Family are encouraged to report perceived risks to care and to ask questions if they do not understand what they are told or what they should do.
[2021-07-03 06:44] LABS: Basophils Percent Auto 0.1 % (0.2-1.2); Hematocrit 33.2 % (42.0-52.0); Hemoglobin 11.7 g/dL (14.0-18.0); Immature Granulocyte Absolute 0.08 K/mm3 (0.00-0.031); Lymphocytes Absolute Auto 0.44 K/mm3 (0.9-3.2); Lymphocytes Percent Auto 5.3 % (18.3-44.2); Mean Corpuscular HGB Conc 35.2 g/dl (32-36); Mean Corpuscular Volume 88.1 fl (80-100); Mean Platelet Volume 9.7 fl (7.4-10.4); Monocytes Absolute Auto 0.8 K/mm3 (0.1-0.6); Neutrophils Percent Auto 83.6 % (45.5-73.1); Platelet Count Result 264 k/mm3 (150-375); Red Blood Count 3.77 M/mm3 (4.6-6.20); Red Cell Distribution Width 13.8 % (11.5-14.5); White Blood Count 8.3 K/mm3 (4.5-10.0)
[2021-07-03 06:54] LABS: Prothrombin Time 50.6 Seconds (11.1-14.7)
[2021-07-03 07:05] LABS: Alanine Aminotransferase 41 U/L (4-50); Estimated CRCL calculation 93 ml/min; Estimated Glomerular Filt Rate > 60; Lactate Dehydrogenase 919 U/L (313-618)
[2021-07-03 07:17] LABS: CRP 21.4 mg/dL (<1.0)
[2021-07-03 07:29] LABS: INR 5.9
[2021-07-03 08:27] LABS: Glucose Point of Care 230 mg/dl (65-105)
[2021-07-03 08:45] LABS: Alanine Aminotransferase 39 U/L (4-50); Estimated CRCL calculation 105 ml/min; Estimated Glomerular Filt Rate > 60
[2021-07-03] MEDS: ALBUTEROL SULFATE (*SP) INHALER 1 PUFF (08:45)
[2021-07-03] MEDS: ALBUTEROL SULFATE (*SP) AEROSOL 1 PUFF 2 PUFF INHALATION ×3 (08:46→20:40)
[2021-07-03] MEDS: lisinopriL 20 MG TABLET PO (09:22)
[2021-07-03] MEDS: DOCUSATE SODIUM 100 MG CAPSULE PO ×2 (09:22→17:29)
[2021-07-03] MEDS: TAMSULOSIN HCL 0.4 MG CAPSULE PO (09:22)
[2021-07-03] MEDS: EZETIMIBE 10 MG TABLET PO (09:22)
[2021-07-03] MEDS: metFORMIN HCL 500 MG TABLET 1000 MG PO ×2 (09:22→17:29)
[2021-07-03] MEDS: MAGNESIUM SULF 2 GM/WATER 50ML 2 GM/50 ML BAG IVPB (09:30)
[2021-07-03] MEDS: INSULIN ASPART (*BKC) 100 UNITS/ML SUB-Q ×3 (09:32→17:28)
[2021-07-03] MEDS: SODIUM CHLORIDE 0.9% IV 1,000 ML 75 ML IV CONT (10:24)
--- NOTE | 2021-07-03 11:35 | PM.IMPN ---
Progress Note: A&P Assessment and Plan (1) COVID-19: Code(s): U07.1 - COVID-19 Status: Acute Assessment and Plan: Tested positive for COVID-19 on the of this month, fully vaccinated with Pfizer since December Seen at [facility] and had been placed on 3 L per nasal cannula and received IVF Continue to monitor labs Supportive care with Oxygen supplement, albuterol inhaler, and Robitussin Self proning as tolerated Continue Remdesivir and dexamethasone x5 days (2) Bradycardia: Code(s): R00.1 - Bradycardia, unspecified Status: Inactive Assessment and Plan: Patient has been on Coreg, holding for now Asymptomatic at this point Monitor (3) BPH (benign prostatic hyperplasia): Code(s): N40.0 - Benign prostatic hyperplasia without lower urinary tract symptoms Status: Acute Assessment and Plan: Continue with tamsulosin (4) H/O mechanical aortic valve replacement: Code(s): Z95.2 - Presence of prosthetic heart valve Status: Acute Assessment and Plan: INR Patient's INR is greater than 8 on admission, 5.9 this a.m. S/p vitamin K, will repeat Patient stated that his western felt hat blocker wants him to be between 2 and 3 Daily PT INR Hold Coumadin for now (5) CAD (coronary artery disease): Code(s): I25.10 - Atherosclerotic heart disease of [place] coronary artery without angina pectoris Status: Acute Assessment and Plan: Continue with aspirin, statin Holding his Coreg for now (6) Hyperlipidemia: Code(s): E78.5 - Hyperlipidemia, unspecified Status: Acute Assessment and Plan: Continue with atorvastatin and Zetia (7) Hypertension: Code(s): I10 - Essential (primary) hypertension Status: Acute Assessment and Plan: Holding Coreg at this time p.r.n. hydralazine Continue with quinapril Monitor. (8) DM2 (diabetes mellitus, type 2): Code(s): E11.9 - Type 2 diabetes mellitus without complications Status: Acute Assessment and Plan: Accu-Cheks AC and HS Continue with metformin, SSI A1c 6.8 Monitor Subjective Date/time seen: 07/03/21 11:35 Interval history: pt seen this a.m.; labs, vs, diagnostic reports reviewed; pt +SOB and cough; denies any CP Review of Systems Review of Systems: All systems reviewed & are unremarkable except as noted in HPI and below Exam Const: General: no acute distress, alert and awake Orientation/consciousness: patient oriented x3 HENMT: Head: normocephalic and atraumatic Ears: hearing grossly normal bilaterally and external ears normal Face and sinus: face symmetric Mouth: Yes Normal oral and palatal mucosa present Eyes: EOM: EOMs intact bilaterally Neck: Neck: full ROM, trachea midline and no JVD Thyroid: thyroid normal Chest: Chest palpation & inspection: normal inspection of the chest Resp: Effort & Inspection: normal respiratory effort Cardio: Jugular venous distension: no JVD Rate: regular rate Rhythm: regular rhythm Heart sounds: S1 normal heart sound present and S2 normal heart sound present GI: Inspection: normal to inspection GI Palp: Yes Soft to palpation Percussion: Yes normal to percussion Auscultation: normal bowel sounds : General: Yes no CVA tenderness Skin: General skin exam: normal color Rashes: no rashes Neuro: General: patient oriented x3 and CN's II-XI intact bilaterally Speech: normal speech Psych: Appearance: grossly normal Affect: normal affect Judgement: Good judgement present (Psych) Objective Data Vital Signs Vital Signs: Vital Signs - 24 hr 07/02/21 20:00 07/03/21 00:00 07/03/21 04:00 Temperature 36.2 C L 36.6 C Pulse Rate 44 L 50 L 57 L Respiratory Rate 18 16 Blood Pressure 138/48 L 129/50 L Pulse Oximetry 94 95 07/03/21 04:27 07/03/21 06:34 07/03/21 08:47 Temperature 36.6 C Pulse Rate 50 L 60 80 Respiratory Rate 16 18 18 Blood Pressure 159/73 H Pulse Oximetry 95 95 96
[2021-07-03 12:15] LABS: Glucose Point of Care 204 mg/dl (65-105)
--- NOTE | 2021-07-03 14:25 | ECG_ITS ---
Measurements Intervals [place] Rate: 70 P: 26 OR: 242 QRS: -4 QRSD: 106 T: 34 QT: 424 QTc: 460 Interpretive Statements SINUS RHYTHM WITH FIRST DEGREE AV BLOCK CANNOT RULE OUT SEPTAL INFARCT, AGE INDETERMINATE CONSIDER INFERIOR INFARCT, AGE INDETERMINATE BORDERLINE ST ABNORMALITY- HIGH LATERAL LEADS BASELINE ARTIFACT- II ABNORMAL ECG Electronically Signed On 07-03-2021 14:55:09 SENIOR CLINICAL SAS PROGRAMMER by Andrew Richardson D.O.
--- NOTE | 2021-07-03 14:39 | PCRCNOTE ---
Window of time for administration has passed. See next scheduled administration.
[2021-07-03] MEDS: PHYTONADIONE ADULT INJ 10 MG in DEXTROSE 5% IN WATER 50 ML 100 MG IVPB (16:20)
[2021-07-03 17:27] LABS: Glucose Point of Care 270 mg/dl (65-105)
[2021-07-03] MEDS: REMDESIVIR 100 MG/NS 250 ML 100 MG/250 ML BAG 250 MG IVPB (20:24)
[2021-07-03] MEDS: ATORVASTATIN 40 MG TABLET 80 MG PO (20:24)
[2021-07-03 21:43] LABS: INR 1.6; Prothrombin Time 18.8 Seconds (11.1-14.7)
[2021-07-03 22:24] LABS: Glucose Point of Care 239 mg/dl (65-105)
[2021-07-03] MEDS: guaiFENesin/DEXTROMETHORPHAN 10 ML UDC PO (22:38)
[2021-07-04] VITALS (9 sets, daily range): BP systolic 120–181; BP diastolic 58–76; PULSE 56–93; RESP 18–27; TEMP 36.1–36.7; O2SAT 91–95
[2021-07-04] MEDS: SODIUM CHLORIDE 0.9% IV 1,000 ML 75 ML IV CONT ×2 (00:21→15:20)
[2021-07-04 07:24] LABS: Alanine Aminotransferase 50 U/L (4-50); Estimated CRCL calculation 120 ml/min; Estimated Glomerular Filt Rate > 60
[2021-07-04 07:29] LABS: INR 1.5; Prothrombin Time 18.2 Seconds (11.1-14.7)
--- NOTE | 2021-07-04 07:48 | PM.IMPN ---
Progress Note: A&P Assessment and Plan (1) Acute respiratory failure with hypoxia: Code(s): J96.01 - Acute respiratory failure with hypoxia Status: Acute Assessment and Plan: Likely 2/2 to COVID 19 pneumonia that has developed after initial diagnosis 06/26/2021. BCX w/ NG. Elevated LDH and ferritin. No baseline oxygen requirement. CT c/w COVID 19 peneumonia. No significant improvement overnight. -Oxygen as needed -Remdesivir #3 -Dexamtasone day -D/C IVF -AM LDH, CK, ferritin, CRP (2) Pneumonia due to COVID-19 virus: Code(s): U07.1 - COVID-19; J12.82 - Pneumonia due to coronavirus disease 2018 Status: Acute Assessment and Plan: Sepsis on admission w/ lactic acid 2.6. Widespread patchy groundglass opacification of both lungs c/w pneumonia. Patient initially dx'd 06/26/2021. Resolution of sepsis but persistent oxygen requirement. -Continue dexamethasone 3/5 -Continue remdesivir 3/5 -Oxygen supplement, albuterol inhaler, and Robitussin (3) H/O mechanical aortic valve replacement: Code(s): Z95.2 - Presence of prosthetic heart valve Status: Acute Assessment and Plan: INR supra-therputic on admission and vitamin K x 2 was given along with holding warfarin. INR 1.5 today. Will restart therapeutic anticoagulation with enoxaparin today and restart warfarin tomorrow night at home dose -Enoxaparin 110 mg BID (4) Bradycardia: Code(s): R00.1 - Bradycardia, unspecified Status: Inactive Assessment and Plan: HR 56 at midnight. Home carvedilol held but still having some episodes of bradycardia. Sees Dr. Helms w/ Cardiology and reports having had a cardioversion in the past. -Continue to hold carvedilol -Consult Cardiology (5) BPH (benign prostatic hyperplasia): Code(s): N40.0 - Benign prostatic hyperplasia without lower urinary tract symptoms Status: Acute Assessment and Plan: Continue home tamsulosin. (6) CAD (coronary artery disease): Code(s): I25.10 - Atherosclerotic heart disease of [place] coronary artery without angina pectoris Status: Acute Assessment and Plan: Hx of CAD on atorvastatin 80 mg daily, carvedilol 6.25 mg BID, quinapril 20 mg daily and ASA 81 mg daily. -Holding carvedilol -Continue atorvastatin, quinapril and ASA (7) Hyperlipidemia: Code(s): E78.5 - Hyperlipidemia, unspecified Status: Acute Assessment and Plan: Continue with atorvastatin and ezetimibe. (8) Hypertension: Code(s): I10 - Essential (primary) hypertension Status: Acute Assessment and Plan: On quinapril 20 mg po daily and carvedilol 6.125 BID. -Continue quinapril -Hydralazine PRN for SBP > 160 (9) DM2 (diabetes mellitus, type 2): Code(s): E11.9 - Type 2 diabetes mellitus without complications Status: Acute Assessment and Plan: Last hemoglobin a1c 6.8, so well controlled outpatient. Will likely need to start basal insulin while on dexamethasone. -Continue home metformin -POC glucose AC HS -SSI Subjective Date/time seen: Date of Service 07/04/21 07:48 Patient reports he has been coughing up blood tinged sputum this morning after his nebulizer treatment. He says it happened last week. He says his breathing has not improved and his cough is significantly bothersome. Review of Systems Respiratory: Respiratory: Reports cough, Reports hemoptysis and Reports dyspnea Exam Narrative: GENERAL: NAD, cooperative HEENT: Normocephalic, atraumatic, anicteric NECK: Supple CV: Normal S1, S2, RRR, No MRG RESP: Coarse breath sounds wih basilar crackles Abdomen: Soft, non-tender, non-distended, +BS EXTREMITIES: Warm and well perfused, no clubbing, cyanosis, or edema. +2 Distal pulses bilaterally. SKIN: warm, dry and intact. NEURO:CN 2-12 grossly intact. Objective Data Vital Signs Vital Signs: Vital Signs - 24 hr 07/03/21 08:00 07/03/21 08:47 07/03/21 12:00
[2021-07-04 08:33] LABS: Glucose Point of Care 194 mg/dl (65-105)
[2021-07-04] MEDS: ALBUTEROL SULFATE (*SP) AEROSOL 1 PUFF 2 PUFF INHALATION ×4 (09:37→20:53)
[2021-07-04] MEDS: metFORMIN HCL 500 MG TABLET 1000 MG PO ×2 (09:54→18:10)
[2021-07-04] MEDS: EZETIMIBE 10 MG TABLET PO (09:55)
[2021-07-04] MEDS: lisinopriL 20 MG TABLET PO (09:55)
[2021-07-04] MEDS: TAMSULOSIN HCL 0.4 MG CAPSULE PO (09:55)
[2021-07-04] MEDS: DOCUSATE SODIUM 100 MG CAPSULE PO ×2 (09:55→18:10)
[2021-07-04 12:43] LABS: Glucose Point of Care 194 mg/dl (65-105)
[2021-07-04] MEDS: ENOXAPARIN 120 MG/0.8 ML SYRINGE 110 MG SUB-Q ×2 (13:16→21:07)
[2021-07-04] MEDS: guaiFENesin/DEXTROMETHORPHAN 10 ML UDC PO ×2 (13:31→18:24)
[2021-07-04 17:31] LABS: Glucose Point of Care 224 mg/dl (65-105)
[2021-07-04] MEDS: INSULIN ASPART (*BKC) 100 UNITS/ML SUB-Q (18:10)
[2021-07-04] MEDS: SALINE 0.65% NAS SOLN 44 ML BTL 1 SPRAY NASAL (18:24)
[2021-07-04] MEDS: ATORVASTATIN 40 MG TABLET 80 MG PO (21:06)
[2021-07-04] MEDS: REMDESIVIR 100 MG/NS 250 ML 100 MG/250 ML BAG 250 MG IVPB (21:07)
[2021-07-04 21:31] LABS: Glucose Point of Care 258 mg/dl (65-105)
[2021-07-05] VITALS (12 sets, daily range): BP systolic 100–173; BP diastolic 52–73; PULSE 45–69; RESP 12–24; TEMP 36.2–36.9; O2SAT 90–97
[2021-07-05 06:46] LABS: Hematocrit 32.8 % (42.0-52.0); Hemoglobin 11.2 g/dL (14.0-18.0); Mean Corpuscular HGB Conc 34.1 g/dl (32-36); Mean Corpuscular Hemoglobin 29.8 pg (26-34); Mean Corpuscular Volume 87.2 fl (80-100); Mean Platelet Volume 9.2 fl (7.4-10.4); Platelet Count Result 282 k/mm3 (150-375); Red Blood Count 3.76 M/mm3 (4.6-6.20); Red Cell Distribution Width 14.1 % (11.5-14.5); White Blood Count 13.4 K/mm3 (4.5-10.0)
[2021-07-05 06:56] LABS: INR 1.5; Prothrombin Time 17.9 Seconds (11.1-14.7)
[2021-07-05 06:59] LABS: Alanine Aminotransferase 44 U/L (4-50); Anion Gap 5 mmol/L (8-16); Blood Urea Nitrogen 17 mg/dL (9-20); CRP 8.5 mg/dL (<1.0); Calcium 7.9 mg/dL (8.4-10.2); Carbon Dioxide 29 mmol/L (22-30); Chloride 95 mmol/L (98-107); Estimated CRCL calculation 120 ml/min; Estimated Glomerular Filt Rate > 60; Glucose 208 mg/dL (65-110); Lactate Dehydrogenase 1122 U/L (313-618); Potassium 4.8 mmol/L (3.4-5.0); Sodium 129 mmol/L (137-145)
[2021-07-05 07:13] LABS: Band Neutrophils Percent 2 % (0-6); Burr Cells 2+ (NORMAL); Lymphocytes Absolute Manual 0.13 K/mm3 (1.1-4.5); Monocytes Absolute Manual 0.26 K/mm3 (0.1-0.90); Monocytes Percent Manual 2 % (3-9); Neutrophils Absolute Manual 12.99 K/mm3 (1.3-6.7); Neutrophils Percent Manual 95 % (46-73); Ovalocytes 1+ (NORMAL); Platelet Estimate Adequate (Adequate); Tear Drop Cells 1+ (NORMAL); Total Cells Counted 100
[2021-07-05 07:14] LABS: Helmet Cells 1+ (NORMAL)
[2021-07-05] MEDS: ALBUTEROL SULFATE (*SP) AEROSOL 1 PUFF 2 PUFF INHALATION ×2 (08:39→14:22)
--- NOTE | 2021-07-05 08:39 | PM.IMPN ---
Progress Note: A&P Assessment and Plan (1) Acute respiratory failure with hypoxia: Code(s): J96.01 - Acute respiratory failure with hypoxia Status: Acute Assessment and Plan: Likely 2/2 to COVID 19 pneumonia that has developed after initial diagnosis 06/26/2021. BCX w/ NG. Elevated LDH and ferritin. No baseline oxygen requirement. CT c/w COVID 19 peneumonia. No significant improvement overnight. -Oxygen as needed -Remdesivir #3 -Dexamthasone -Baricitinib #1 (2) Pneumonia due to COVID-19 virus: Code(s): U07.1 - COVID-19; J12.82 - Pneumonia due to coronavirus disease 2018 Status: Acute Assessment and Plan: Sepsis on admission w/ lactic acid 2.6. Widespread patchy groundglass opacification of both lungs c/w pneumonia. Patient initially dx'd 06/26/2021. Resolution of sepsis but persistent oxygen requirement. -Continue dexamethasone 3/5 -Continue remdesivir 3/5 -Oxygen supplement, albuterol inhaler, and Robitussin (3) H/O mechanical aortic valve replacement: Code(s): Z95.2 - Presence of prosthetic heart valve Status: Acute Assessment and Plan: INR supra-therputic on admission and vitamin K x 2 was given along with holding warfarin. INR 1.5 today. Will hold off on restarting warfarin tonight. -Enoxaparin 110 mg BID (4) Bradycardia: Code(s): R00.1 - Bradycardia, unspecified Status: Inactive Assessment and Plan: Resolved off carvedilol -Continue to hold carvedilol -Appreciate cardiology recs (5) BPH (benign prostatic hyperplasia): Code(s): N40.0 - Benign prostatic hyperplasia without lower urinary tract symptoms Status: Acute Assessment and Plan: Continue home tamsulosin. (6) CAD (coronary artery disease): Code(s): I25.10 - Atherosclerotic heart disease of [place] coronary artery without angina pectoris Status: Acute Assessment and Plan: Hx of CAD on atorvastatin 80 mg daily, carvedilol 6.25 mg BID, quinapril 20 mg daily and ASA 81 mg daily. -Holding carvedilol -Continue atorvastatin, quinapril and ASA (7) Hyperlipidemia: Code(s): E78.5 - Hyperlipidemia, unspecified Status: Acute Assessment and Plan: Continue with atorvastatin and ezetimibe. (8) Hypertension: Code(s): I10 - Essential (primary) hypertension Status: Acute Assessment and Plan: On quinapril 20 mg po daily and carvedilol 6.125 BID. -Continue quinapril -Hydralazine PRN for SBP > 160 (9) DM2 (diabetes mellitus, type 2): Code(s): E11.9 - Type 2 diabetes mellitus without complications Status: Acute Assessment and Plan: Last hemoglobin a1c 6.8, so well controlled outpatient. Will likely need to start basal insulin while on dexamethasone. -Continue home metformin -POC glucose AC HS -SSI Subjective Date/time seen: Date of Service 07/05/21 08:40 Per nursing RT needed to increase oxygen to 12L. Patient says his breathing is worse this morning and that he is uncomfortable laying on his side. Review of Systems Respiratory: Respiratory: Reports cough, Reports dyspnea and Reports dyspnea on exertion Exam Narrative: GENERAL: NAD, cooperative HEENT: Normocephalic, atraumatic, anicteric NECK: Supple CV: Normal S1, S2, RRR, No MRG RESP: Coarse breath sounds wih basilar crackles Abdomen: Soft, non-tender, non-distended, +BS EXTREMITIES: Warm and well perfused, no clubbing, cyanosis, or edema. +2 Distal pulses bilaterally. SKIN: warm, dry and intact. NEURO:CN 2-12 grossly intact. Objective Data Vital Signs Vital Signs: Vital Signs - 24 hr 07/04/21 09:44 07/04/21 09:55 07/04/21 12:00 Temperature 98.1 F Pulse Rate 82 Respiratory Rate 20 Blood Pressure 146/58 H Pulse Oximetry 92 91 91 07/04/21 16:00 07/04/21 20:00 07/04/21 20:52 Temperature 97.7 F 97.0 F L Pulse Rate 71 62 66 Respiratory Rate 20 18 Blood Pressure 144/59 H 155/76 H Puls
[2021-07-05 09:49] LABS: Glucose Point of Care 200 mg/dl (65-105)
[2021-07-05] MEDS: EZETIMIBE 10 MG TABLET PO (09:57)
[2021-07-05] MEDS: lisinopriL 20 MG TABLET PO (09:57)
[2021-07-05] MEDS: metFORMIN HCL 500 MG TABLET 1000 MG PO ×2 (09:57→18:18)
[2021-07-05] MEDS: guaiFENesin/DEXTROMETHORPHAN 10 ML UDC PO (09:57)
[2021-07-05] MEDS: TAMSULOSIN HCL 0.4 MG CAPSULE PO (09:57)
[2021-07-05] MEDS: DOCUSATE SODIUM 100 MG CAPSULE PO (09:57)
[2021-07-05] MEDS: INSULIN ASPART (*BKC) 100 UNITS/ML 6 UNITS SUB-Q ×3 (09:58→18:18)
[2021-07-05] MEDS: ENOXAPARIN 120 MG/0.8 ML SYRINGE 110 MG SUB-Q ×2 (09:58→21:13)
--- NOTE | 2021-07-05 10:47 | PM.CNCAR ---
Assessment and Plan Additional Plan Acute resp failure secondary to COVID pneumonia, sinus bradycardia with HR in 40s likely relate dot coreg and hypoxemia, Hx of Mechanical AVR ([place] valve) and CABG in 2015, hx of DVT, plan cont warfarin and ASA, hold coreg, O2 sat target > 88%, CTA to rule out PE if hemoptysis is worse or persistent History of Present Illness History of Present Illness Consult date/time: 07/05/21 10:47 Reason For Visit: Bradycardia and Resp Distress w/COVID Narrative: Patient presented with progressive cough and SOB for several days, getting worse, SOB present at rest and worse with mild activity with hypoxemia. He was diagnosed with COVID 9 days ago. Cough is associated with hemoptysis. He presented to OSH and noted to have bradycardia and HR in 30 to 40s. In Tele unit, he was noted to have bradycardia in 40s. He feels intermittently dizzy. He had been on coreg for BP control with no problems with bradycardia. He has Hx of mechanical AV replacement [place]-valve and CABG * 3 vessel in 2014. Review of Systems Review of Systems: All systems reviewed & are unremarkable except as noted in HPI and below PMFSH Past Medical History Medical History (Updated 07/04/21 @ 15:17 by Lucia Leiva MD) Anticoagulated on Coumadin CAD (coronary artery disease) Carpal tunnel syndrome DM2 (diabetes mellitus, type 2) Hyperlipidemia Hypertension Overweight Surgical History Surgical History (Updated 07/02/21 @ 21:57 by Mei Cosme NP) H/O mechanical aortic valve replacement History of carpal tunnel release Left hand Hx of artificial heart valve replacement Hx of cataract surgery S/P triple vessel bypass Family History Family History Father , Age 81 Diabetes mellitus Lung cancer CAD (coronary artery disease) Mother , Age 89 Rheumatoid arthritis Social History Social History (Updated 07/02/21 @ 22:00 by Mei Cosme NP) Social History: The patient lives at home with his . He has 1 biological child he is a former smoker. 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 He is a former smoker and also former smokeless tobacco. He denies any alcohol marijuana or illicit drugs. His is the [employer] commercial real estate attorney for healthcare. Code status full code Smoking status: Former smoker Tobacco type: smokeless tobacco Smokeless tobacco user: chewing tobacco Additional smoking assessment comments: Quit Smokeless tobacco in 1999. Used for 25 years Alcohol intake: former Substance use: never Additional living arrangements comments: . 1 adult child. Spiritual care concerns: No Meds Home Medications and Allergies Home Medications Medication Instructions Recorded Confirmed Type aspirin 81 mg tablet,delayed 81 mg PO DAILY 08/22/19 07/02/21 History release atorvastatin 80 mg tablet 80 mg PO HS 08/22/19 07/02/21 History carvedilol 6.25 mg tablet 6.25 mg PO Q12H 08/22/19 07/02/21 History ezetimibe 10 mg tablet 10 mg PO DAILY 08/22/19 07/02/21 History quinapril 20 mg tablet 20 mg PO DAILY 08/22/19 07/02/21 History warfarin 4 mg tablet 8 mg PO DAILY tablet 08/22/19 07/02/21 History blood-glucose meter #1 each 06/13/20 07/02/21 Rx lancets See Rx Instructions .ROUTE 10/16/20 07/02/21 Rx .COMPLEX #100 ea blood sugar diagnostic See Rx Instructions .ROUTE 11/26/20 07/02/21 Rx .COMPLEX #100 strip metformin 1,000 mg PO BID 07/02/21 07/02/21 History tamsulosin 0.4 mg PO DAILY 07/02/21 07/02/21 History Allergies Allergy/AdvReac Type Severity Reaction Status Date / Time Penicillins Allergy Unknown Rash Verified 07/02/21 15:35 Vital Signs Vital Signs - 24 hr 07/04/21 12:00 07/04/21 16:00 07/04/21 20:00 Temperature 36.7 C 36.5 C 36.1 C L Pulse Rate 82 71 62 Respiratory Rate 20 20 18 Blood Pressure 146/58 H 144/59 H 155/76 H Pulse Oximetry 91 92 95 07/04/21 20:52 07/05/21 00:00 07/05/21 04:00 T
[2021-07-05 11:57] LABS: Glucose Point of Care 175 mg/dl (65-105)
[2021-07-05 13:37] LABS: Hematocrit 33.1 % (42.0-52.0); Hemoglobin 11.5 g/dL (14.0-18.0); Mean Corpuscular HGB Conc 34.7 g/dl (32-36); Mean Corpuscular Hemoglobin 30.4 pg (26-34); Mean Corpuscular Volume 87.6 fl (80-100); Mean Platelet Volume 9.5 fl (7.4-10.4); Platelet Count Result 297 k/mm3 (150-375); Red Blood Count 3.78 M/mm3 (4.6-6.20); Red Cell Distribution Width 14.1 % (11.5-14.5); White Blood Count 16.4 K/mm3 (4.5-10.0)
--- NOTE | 2021-07-05 13:45 | PCRCNOTE ---
Past window of treatment time.
[2021-07-05 13:48] LABS: Alanine Aminotransferase 44 U/L (4-50); Aspartate Amino Transferase 35 U/L (17-59); Estimated CRCL calculation 105 ml/min; Estimated Glomerular Filt Rate > 60
[2021-07-05 14:00] LABS: Lymphocytes Absolute Manual 0.16 K/mm3 (1.1-4.5); Monocytes Absolute Manual 0.49 K/mm3 (0.1-0.90); Monocytes Percent Manual 3 % (3-9); Neutrophils Percent Manual 96 % (46-73); Total Cells Counted 100
[2021-07-05 14:01] LABS: Large Platelets Present; Platelet Estimate Adequate (Adequate); Polychromasia 1+ (NORMAL)
[2021-07-05 14:02] LABS: Burr Cells 2+ (NORMAL); Ovalocytes 2+ (NORMAL)
[2021-07-05] MEDS: BARICITINIB 2 MG TABLET 4 MG PO (15:37)
[2021-07-05 16:44] LABS: Glucose Point of Care 188 mg/dl (65-105)
[2021-07-05] MEDS: REMDESIVIR 100 MG/NS 250 ML 100 MG/250 ML BAG 250 MG IVPB (21:14)
[2021-07-05] MEDS: ATORVASTATIN 40 MG TABLET 80 MG PO (21:14)
--- NOTE | 2021-07-05 21:28 | PCRCNOTE ---
pt refuses MDI stating that he cannot breathe after he uses it. pt stated that it took 4 hours for his breathing to normalize after prior MDI usage. therapist will talk to doctor to try and get nebulizers ordered
[2021-07-06] VITALS (10 sets, daily range): BP systolic 124–166; BP diastolic 50–63; PULSE 36–58; RESP 18–24; TEMP 36–36.5; O2SAT 87–98
[2021-07-06 01:20] LABS: Glucose Point of Care 188 mg/dl (65-105)
[2021-07-06 06:15] LABS: Basophils Percent Auto 0.2 % (0.2-1.2); Eosinophils Percent Auto 0.4 % (0-4.4); Hematocrit 31.9 % (42.0-52.0); Immature Granulocyte Absolute 0.25 K/mm3 (0.00-0.031); Immature Granulocyte Percent A 2.4 % (0-0.5); Lymphocytes Absolute Auto 0.68 K/mm3 (0.9-3.2); Lymphocytes Percent Auto 6.5 % (18.3-44.2); Mean Corpuscular HGB Conc 34.5 g/dl (32-36); Mean Corpuscular Hemoglobin 30.3 pg (26-34); Mean Corpuscular Volume 87.9 fl (80-100); Mean Platelet Volume 9.5 fl (7.4-10.4); Monocytes Absolute Auto 0.7 K/mm3 (0.1-0.6); Monocytes Percent Auto 6.4 % (2.6-8.5); Neutrophils Absolute Auto 8.8 K/mm3 (1.3-6.7); Neutrophils Percent Auto 84.1 % (45.5-73.1); Platelet Count Result 280 k/mm3 (150-375); Red Blood Count 3.63 M/mm3 (4.6-6.20); Red Cell Distribution Width 13.9 % (11.5-14.5); White Blood Count 10.4 K/mm3 (4.5-10.0)
[2021-07-06 06:26] LABS: Alanine Aminotransferase 44 U/L (4-50); Aspartate Amino Transferase 36 U/L (17-59); Estimated CRCL calculation 105 ml/min; Estimated Glomerular Filt Rate > 60
[2021-07-06 06:52] LABS: INR 1.3; Prothrombin Time 16.4 Seconds (11.1-14.7)
[2021-07-06 08:15] LABS: Glucose Point of Care 148 mg/dl (65-105)
[2021-07-06] MEDS: metFORMIN HCL 500 MG TABLET 1000 MG PO ×2 (09:50→17:23)
[2021-07-06] MEDS: INSULIN ASPART (*BKC) 100 UNITS/ML 6 UNITS SUB-Q ×3 (09:50→17:23)
[2021-07-06] MEDS: TAMSULOSIN HCL 0.4 MG CAPSULE PO (09:51)
[2021-07-06] MEDS: BARICITINIB 2 MG TABLET 4 MG PO (09:51)
[2021-07-06] MEDS: lisinopriL 20 MG TABLET PO (09:51)
[2021-07-06] MEDS: ENOXAPARIN 120 MG/0.8 ML SYRINGE 110 MG SUB-Q ×2 (09:51→20:53)
[2021-07-06] MEDS: EZETIMIBE 10 MG TABLET PO (09:51)
[2021-07-06] MEDS: guaiFENesin/DEXTROMETHORPHAN 10 ML UDC PO ×2 (10:06→21:00)
[2021-07-06 11:45] LABS: Glucose Point of Care 151 mg/dl (65-105)
[2021-07-06] MEDS: ALBUTEROL SULFATE (*SP) AEROSOL 1 PUFF 2 PUFF INHALATION (11:59)
--- NOTE | 2021-07-06 15:39 | PM.PNCARD ---
Progress Note: A&P Additional Plan Acute resp failure secondary to COVID pneumonia, sinus bradycardia with HR in 40s likely relate dot coreg and hypoxemia, Hx of Mechanical AVR ([place] valve) and CABG in 2015, hx of DVT, plan cont warfarin and ASA, D/C coreg, O2 sat target > 88% Subjective Date/time seen: 07/06/21 15:39 Interval history: no acute events SOB is better but still present HR in 39 to 50 Review of Systems Review of Systems: All systems reviewed & are unremarkable except as noted in HPI and below Exam Const: General: comfortable and no acute distress Other: Able to lie flat HENMT: General nose exam: Normal nares present and no epistaxis Mouth: Yes moist mucous membranes Eyes: Sclera: sclerae normal Pupils: Equal, round and reactive pupils present Neck: Neck: supple and no JVD Carotids: no bruits Resp: Auscultation: rhonchi (basal) and lung sounds not diminished Other: No chest wall tenderness Cardio: Rate: regular rate Rhythm: regular rhythm Heart sounds: no gallops, no murmurs and no rubs GI: GI Palp: Yes Soft to palpation and No Tenderness to palpation present (GI) Auscultation: normal bowel sounds Skin: General skin exam: normal color, rashes and/or lesions noted and no erythema Other: Warm Neuro: Cranial nerves: Yes Equal, round and reactive pupils present Speech: normal speech Other: No obvious focal deficit or facial asymmetry Extrem: General: no edema Other: Normal capillary refills Intact distal pulses. Objective Data Vital Signs Vital Signs: Vital Signs - 24 hr 07/05/21 16:00 07/05/21 16:50 07/05/21 20:00 Temperature 36.6 C 36.2 C L Pulse Rate 67 69 66 Respiratory Rate 18 24 H Blood Pressure 154/72 H 148/63 H Pulse Oximetry 92 97 07/05/21 23:08 07/06/21 00:00 07/06/21 03:08 Temperature 36.0 C L Pulse Rate 57 L Respiratory Rate 22 H Blood Pressure 124/63 Pulse Oximetry 94 97 87 L 07/06/21 04:00 07/06/21 08:00 07/06/21 08:09 Temperature 36.1 C L 36.2 C L Pulse Rate 58 L 36 L Respiratory Rate 24 H 18 Blood Pressure 155/62 H 129/51 L Pulse Oximetry 95 95 91 07/06/21 11:58 Temperature 36.2 C L Pulse Rate 41 L Respiratory Rate 20 Blood Pressure 136/57 L Pulse Oximetry 98 Intake/Output Intake/Output: Intake & Output 07/03/21 07/04/21 07/05/21 07/06/21 23:59 23:59 23:59 23:59 Intake Total 2720 3410 1880 1330 Output Total 1150 2250 750 600 Balance 1570 1160 1130 730 Meds/Results Medications: Active Medications Generic Name Dose Route Start Last Admin Trade Name Freq PRN Reason Stop Dose Admin Acetaminophen 650 mg 07/06/21 13:30 Acetaminophen 325 Mg Tablet PO Q6H PRN Mild Pain (1-3) or Fever Artificial Tears 1 drop 07/06/21 13:30 Artificial Tears Ophth Soln 15 Ml Bottle EACH EYE QID PRN Dry Eye(s) Atorvastatin Calcium 80 mg 07/03/21 21:00 07/05/21 21:14 Atorvastatin 40 Mg Tablet PO 80 mg HS SAFIA Administration Baricitinib 4 mg 07/05/21 13:00 07/06/21 09:51 Baricitinib 2 Mg Tablet PO 07/18/21 09:01 4 mg DAILY SAFIA Administration Bisacodyl 5 mg 07/02/21 21:45 Bisacodyl 5 Mg Tablet Ec PO DAILY PRN Constipation Dexamethasone Sodium Phosphate 6 mg 07/03/21 09:00 07/06/21 09:51 Dexamethasone Sod Phos Inj 10 Mg/Ml 1 Ml Vial IV PUSH 07/12/21 09:01 6 mg DAILY SAFIA Administration Dextrose 12.5 gm 07/02/21 21:49 Dextrose 50% 25 Gm/50 Ml Syringe IV PUSH PRN PRN Hypoglycemia Protocol Docusate Sodium 100 mg 07/03/21 09:00 07/06/21 09:51 Docusate Sodium 100 Mg Capsule PO Not Given BID SAFIA Ezetimibe 10 mg 07/03/21 09:00 07/06/21 09:51 Ezetimibe 10 Mg Tablet PO 10 mg DAILY ASFIA Administration Enoxaparin Sodium 110 mg 07/04/21 09:00 07/06/21 09:51 Enoxaparin 120 Mg/0.8 Ml Syringe SUB-Q 110 mg Q12HR SAFIA Administration Glucagon 1 mg 07/02/21 21:49 Glucagon For Inj 1 Mg Vial IM PRN PRN Hy
[2021-07-06] MEDS: ACETAMINOPHEN 325 MG TABLET 650 MG PO (16:16)
[2021-07-06] MEDS: ARTIFICIAL TEARS OPHTH SOLN 15 ML BOTTLE 1 DROP EACH EYE (16:16)
[2021-07-06 16:37] LABS: Glucose Point of Care 189 mg/dl (65-105)
[2021-07-06] MEDS: UMECLIDINIUM BROMIDE 62.5 MCG ELLIPTA 1 PUFF INHALATION (16:45)
--- NOTE | 2021-07-06 19:03 | PM.IMPN ---
Progress Note: A&P Assessment and Plan (1) Acute respiratory failure with hypoxia: Code(s): J96.01 - Acute respiratory failure with hypoxia Status: Acute Assessment and Plan: Likely 2/2 to COVID 19 pneumonia that has developed after initial diagnosis 06/26/2021. BCX w/ NG. Elevated LDH and ferritin. No baseline oxygen requirement. CT c/w COVID 19 peneumonia. No significant improvement overnight. -Oxygen as needed -Remdesivir #4 -Dexamthasone -Baricitinib #2 -Ipratropium neb q4h per RT (2) Pneumonia due to COVID-19 virus: Code(s): U07.1 - COVID-19; J12.82 - Pneumonia due to coronavirus disease 2018 Status: Acute Assessment and Plan: Sepsis on admission w/ lactic acid 2.6. Widespread patchy groundglass opacification of both lungs c/w pneumonia. Patient initially dx'd 06/26/2021. Resolution of sepsis but persistent oxygen requirement. -Continue dexamethasone 4/5 -Continue remdesivir 4/5 -Baricitinib 2/14 -Oxygen supplement, albuterol inhaler, and Robitussin (3) H/O mechanical aortic valve replacement: Code(s): Z95.2 - Presence of prosthetic heart valve Status: Acute Assessment and Plan: INR supra-therputic on admission and vitamin K x 2 was given along with holding warfarin. INR 1.5 today. Will hold off on restarting warfarin tonight. Per Cardiology clinic note, INR goal 2-3 due to hx of atrial flutter in addition to the mechanical valve. -Enoxaparin 110 mg BID -Warfarin 8 mg po qhs starting 07/07 (4) Bradycardia: Code(s): R00.1 - Bradycardia, unspecified Status: Inactive Assessment and Plan: Has returned a few days after carvedilol was held. -Continue to hold carvedilol -Appreciate cardiology recs (5) BPH (benign prostatic hyperplasia): Code(s): N40.0 - Benign prostatic hyperplasia without lower urinary tract symptoms Status: Acute Assessment and Plan: Continue home tamsulosin. (6) CAD (coronary artery disease): Code(s): I25.10 - Atherosclerotic heart disease of [place] coronary artery without angina pectoris Status: Acute Assessment and Plan: Hx of CAD on atorvastatin 80 mg daily, carvedilol 6.25 mg BID, quinapril 20 mg daily and ASA 81 mg daily. -Holding carvedilol -Continue atorvastatin, quinapril and ASA (7) Hyperlipidemia: Code(s): E78.5 - Hyperlipidemia, unspecified Status: Acute Assessment and Plan: Continue with atorvastatin and ezetimibe. (8) Hypertension: Code(s): I10 - Essential (primary) hypertension Status: Acute Assessment and Plan: On quinapril 20 mg po daily and carvedilol 6.125 BID. -Continue quinapril -Hydralazine PRN for SBP > 160 (9) DM2 (diabetes mellitus, type 2): Code(s): E11.9 - Type 2 diabetes mellitus without complications Status: Acute Assessment and Plan: Last hemoglobin a1c 6.8, so well controlled outpatient. Will likely need to start basal insulin while on dexamethasone. -Continue home metformin -POC glucose AC HS -SSI Subjective Date/time seen: Date of Service 07/06/21 19:03 Patient says he feels better. Patient says he cannot tolerate the albuterol MDI because it makes him have a fit of coughing. Patient has concerns about the validity of the pulse oximiter uses by RT. Patient says he will be saturating at 95 and then RT checks and his saturation is 89. Per nursing patient did much better yesterday after the dose of barictinib and continues to have asymptomatic bradycardia. Review of Systems Respiratory: Respiratory: Reports dyspnea Exam Narrative: GENERAL: NAD, cooperative HEENT: Normocephalic, atraumatic, anicteric NECK: Supple CV: Normal S1, S2, RRR, No MRG RESP: Coarse breath sounds throughout but slightly improved Abdomen: Soft, non-tender, non-distended, +BS EXTREMITIES: Warm and well perfused, no clubbing, cyanosis, or edema. +2 Distal pulses bilaterally. SKIN: wa
[2021-07-06] MEDS: REMDESIVIR 100 MG/NS 250 ML 100 MG/250 ML BAG 250 MG IVPB (20:53)
[2021-07-06] MEDS: ATORVASTATIN 40 MG TABLET 80 MG PO (20:54)
[2021-07-06 22:07] LABS: Glucose Point of Care 172 mg/dl (65-105)
[2021-07-07] VITALS (11 sets, daily range): BP systolic 110–162; BP diastolic 36–63; PULSE 35–85; RESP 17–20; TEMP 36–36.4; O2SAT 86–98
[2021-07-07] MEDS: guaiFENesin/DEXTROMETHORPHAN 10 ML UDC PO ×2 (06:29→17:32)
[2021-07-07 06:52] LABS: Basophils Percent Auto 0.3 % (0.2-1.2); Eosinophils Absolute Auto 0.1 K/mm3 (0-0.3); Eosinophils Percent Auto 0.8 % (0-4.4); Hematocrit 33.9 % (42.0-52.0); Hemoglobin 11.6 g/dL (14.0-18.0); Immature Granulocyte Absolute 0.28 K/mm3 (0.00-0.031); Immature Granulocyte Percent A 2.4 % (0-0.5); Lymphocytes Absolute Auto 0.75 K/mm3 (0.9-3.2); Lymphocytes Percent Auto 6.4 % (18.3-44.2); Mean Corpuscular HGB Conc 34.2 g/dl (32-36); Mean Corpuscular Hemoglobin 30.1 pg (26-34); Mean Corpuscular Volume 88.1 fl (80-100); Mean Platelet Volume 9.9 fl (7.4-10.4); Monocytes Absolute Auto 0.7 K/mm3 (0.1-0.6); Monocytes Percent Auto 6.1 % (2.6-8.5); Neutrophils Absolute Auto 9.9 K/mm3 (1.3-6.7); Platelet Count Result 316 k/mm3 (150-375); Red Blood Count 3.85 M/mm3 (4.6-6.20); Red Cell Distribution Width 14.1 % (11.5-14.5); White Blood Count 11.7 K/mm3 (4.5-10.0)
[2021-07-07 06:53] LABS: INR 1.2; Prothrombin Time 14.9 Seconds (11.1-14.7)
[2021-07-07 07:08] LABS: Alanine Aminotransferase 50 U/L (4-50); Anion Gap 4 mmol/L (8-16); Aspartate Amino Transferase 44 U/L (17-59); Blood Urea Nitrogen 20 mg/dL (9-20); Calcium 8.2 mg/dL (8.4-10.2); Carbon Dioxide 29 mmol/L (22-30); Chloride 97 mmol/L (98-107); Estimated CRCL calculation 105 ml/min; Estimated Glomerular Filt Rate > 60; Glucose 145 mg/dL (65-110); Sodium 130 mmol/L (137-145)
--- NOTE | 2021-07-07 07:25 | PM.IMPN ---
Progress Note: A&P Assessment and Plan (1) Acute respiratory failure with hypoxia: Code(s): J96.01 - Acute respiratory failure with hypoxia Status: Acute Assessment and Plan: Likely 2/2 to COVID 19 pneumonia that has developed after initial diagnosis 06/26/2021. BCX w/ NG. Elevated LDH and ferritin. No baseline oxygen requirement. CT c/w COVID 19 peneumonia. Appears to have had some improvement throughout yesterday. -Oxygen as needed -Remdesivir #5 -Dexamthasone -Baricitinib #3 -Continue incruse ellipta per RT (2) Pneumonia due to COVID-19 virus: Code(s): U07.1 - COVID-19; J12.82 - Pneumonia due to coronavirus disease 2019 Status: Acute Assessment and Plan: Sepsis on admission w/ lactic acid 2.6. Widespread patchy groundglass opacification of both lungs c/w pneumonia. Patient initially dx'd 06/26/2021. Resolution of sepsis but persistent oxygen requirement. -Continue dexamethasone 4/5 -Continue remdesivir 5/5 -Baricitinib 3/14 -Oxygen supplement, albuterol inhaler, and Robitussin (3) H/O mechanical aortic valve replacement: Code(s): Z95.2 - Presence of prosthetic heart valve Status: Acute Assessment and Plan: INR supra-therputic on admission and vitamin K x 2 was given along with holding warfarin. INR 1.5 today. Will hold off on restarting warfarin tonight. Per Cardiology clinic note, INR goal 2-3 due to hx of atrial flutter in addition to the mechanical valve. -Enoxaparin 110 mg BID -Warfarin 8 mg po qhs tonight (4) Bradycardia: Code(s): R00.1 - Bradycardia, unspecified Status: Inactive Assessment and Plan: Has returned a few days after carvedilol was held. -Continue to hold carvedilol -Appreciate cardiology recs (5) BPH (benign prostatic hyperplasia): Code(s): N40.0 - Benign prostatic hyperplasia without lower urinary tract symptoms Status: Acute Assessment and Plan: Continue home tamsulosin. (6) CAD (coronary artery disease): Code(s): I25.10 - Atherosclerotic heart disease of [place] coronary artery without angina pectoris Status: Acute Assessment and Plan: Hx of CAD on atorvastatin 80 mg daily, carvedilol 6.25 mg BID, quinapril 20 mg daily and ASA 81 mg daily. -Holding carvedilol -Continue atorvastatin, quinapril and ASA (7) Hyperlipidemia: Code(s): E78.5 - Hyperlipidemia, unspecified Status: Acute Assessment and Plan: Continue with atorvastatin and ezetimibe. (8) Hypertension: Code(s): I10 - Essential (primary) hypertension Status: Acute Assessment and Plan: On quinapril 20 mg po daily and carvedilol 6.125 BID. -Continue quinapril -Hydralazine PRN for SBP > 160 (9) DM2 (diabetes mellitus, type 2): Code(s): E11.9 - Type 2 diabetes mellitus without complications Status: Acute Assessment and Plan: Last hemoglobin a1c 6.8, so well controlled outpatient. Will likely need to start basal insulin while on dexamethasone. -Continue home metformin -POC glucose AC HS -SSI Subjective Date/time seen: Date of Service 07/07/21 07:25 Patient says he feels his breathing has improved. Patient says he could not tell a difference after being given the new inhaler yesterday evening. Denies symptoms when his heart rate is low. Review of Systems Respiratory: Respiratory: Reports dyspnea and Reports dyspnea on exertion Exam Narrative: GENERAL: NAD, cooperative HEENT: Normocephalic, atraumatic, anicteric NECK: Supple CV: Normal S1, S2, RRR, No MRG RESP: Coarse breath sounds throughout but slightly improved Abdomen: Soft, non-tender, non-distended, +BS EXTREMITIES: Warm and well perfused, no clubbing, cyanosis, or edema. +2 Distal pulses bilaterally. SKIN: warm, dry and intact. NEURO:CN 2-12 grossly intact. Objective Data Vital Signs Vital Signs: Vital Signs - 24 hr 07/06/21 08:00 07/06/21 08:09 07/06/21 11:58 Miguel
[2021-07-07 08:24] LABS: Glucose Point of Care 171 mg/dl (65-105)
[2021-07-07] MEDS: INSULIN ASPART (*BKC) 100 UNITS/ML 6 UNITS SUB-Q ×3 (09:19→17:33)
[2021-07-07] MEDS: BARICITINIB 2 MG TABLET 4 MG PO (09:20)
[2021-07-07] MEDS: lisinopriL 20 MG TABLET PO (09:20)
[2021-07-07] MEDS: TAMSULOSIN HCL 0.4 MG CAPSULE PO (09:20)
[2021-07-07] MEDS: EZETIMIBE 10 MG TABLET PO (09:20)
[2021-07-07] MEDS: metFORMIN HCL 500 MG TABLET 1000 MG PO ×2 (09:20→17:32)
[2021-07-07] MEDS: ENOXAPARIN 120 MG/0.8 ML SYRINGE 110 MG SUB-Q ×2 (09:20→21:13)
[2021-07-07] MEDS: UMECLIDINIUM BROMIDE 62.5 MCG ELLIPTA 1 PUFF INHALATION (09:40)
--- NOTE | 2021-07-07 11:20 | PM.PNCARD ---
Progress Note: A&P Additional Plan Acute resp failure secondary to COVID pneumonia, sinus bradycardia with HR in 40s likely relate dot coreg and hypoxemia, Hx of Mechanical AVR ([place] valve) and CABG in 2015, hx of DVT, plan cont warfarin and ASA, D/C coreg, O2 sat target > 88% Subjective Date/time seen: 07/07/21 11:20 Interval history: no acute events Tele: HR 40 to 60 Review of Systems Review of Systems: All systems reviewed & are unremarkable except as noted in HPI and below Exam Const: General: comfortable and no acute distress Other: Able to lie flat HENMT: General nose exam: Normal nares present and no epistaxis Mouth: Yes moist mucous membranes Eyes: Sclera: sclerae normal Pupils: Equal, round and reactive pupils present Neck: Neck: supple and no JVD Carotids: no bruits Resp: Auscultation: rales (bilateral ), rhonchi (basal) and lung sounds not diminished Other: No chest wall tenderness Cardio: Rate: regular rate Rhythm: regular rhythm Heart sounds: no gallops, no murmurs and no rubs GI: Auscultation: normal bowel sounds Skin: General skin exam: normal color, rashes and/or lesions noted and no erythema Other: Warm Neuro: Cranial nerves: Yes Equal, round and reactive pupils present Speech: normal speech Other: No obvious focal deficit or facial asymmetry Extrem: General: no edema Other: Normal capillary refills Intact distal pulses. Objective Data Vital Signs Vital Signs: Vital Signs - 24 hr 07/06/21 11:58 07/06/21 12:00 07/06/21 16:00 Temperature 36.2 C L 36.1 C L Pulse Rate 41 L 41 L 44 L Respiratory Rate 20 18 Blood Pressure 136/57 L 132/60 Pulse Oximetry 98 96 07/06/21 20:00 07/06/21 23:28 07/07/21 00:00 Temperature 36.5 C 36.2 C L Pulse Rate 40 L 59 L Respiratory Rate 20 20 Blood Pressure 166/50 H 110/45 L Pulse Oximetry 95 95 98 07/07/21 04:00 07/07/21 08:00 07/07/21 09:40 Temperature 36.4 C L 36.2 C L Pulse Rate 50 L 39 L Respiratory Rate 20 17 Blood Pressure 126/36 L 132/50 L Pulse Oximetry 98 93 90 Intake/Output Intake/Output: Intake & Output 07/04/21 07/05/21 07/06/21 07/07/21 23:59 23:59 23:59 23:59 Intake Total 3410 2130 2552 600 Output Total 2250 750 600 Balance 1160 1380 1952 600 Meds/Results Medications: Active Medications Generic Name Dose Route Start Last Admin Trade Name Freq PRN Reason Stop Dose Admin Acetaminophen 650 mg 07/06/21 13:30 07/06/21 16:16 Acetaminophen 325 Mg Tablet PO 650 mg Q6H PRN Administration Mild Pain (1-3) or Fever Artificial Tears 1 drop 07/06/21 13:30 07/06/21 16:16 Artificial Tears Ophth Soln 15 Ml Bottle EACH EYE 1 drop QID PRN Administration Dry Eye(s) Atorvastatin Calcium 80 mg 07/03/21 21:00 07/06/21 20:54 Atorvastatin 40 Mg Tablet PO 80 mg HS SAFIA Administration Baricitinib 4 mg 07/05/21 13:00 07/07/21 09:20 Baricitinib 2 Mg Tablet PO 07/18/21 09:01 4 mg DAILY SAFIA Administration Bisacodyl 5 mg 07/02/21 21:45 Bisacodyl 5 Mg Tablet Ec PO DAILY PRN Constipation Dexamethasone Sodium Phosphate 6 mg 07/03/21 09:00 07/07/21 09:21 Dexamethasone Sod Phos Inj 10 Mg/Ml 1 Ml Vial IV PUSH 07/12/21 09:01 6 mg DAILY SAFIA Administration Dextrose 12.5 gm 07/02/21 21:49 Dextrose 50% 25 Gm/50 Ml Syringe IV PUSH PRN PRN Hypoglycemia Protocol Docusate Sodium 100 mg 07/03/21 09:00 07/07/21 09:21 Docusate Sodium 100 Mg Capsule PO Not Given BID SAFIA Ezetimibe 10 mg 07/03/21 09:00 07/07/21 09:20 Ezetimibe 10 Mg Tablet PO 10 mg DAILY SAFIA Administration Enoxaparin Sodium 110 mg 07/04/21 09:00 07/07/21 09:20 Enoxaparin 120 Mg/0.8 Ml Syringe SUB-Q 110 mg Q12HR SAFIA Administration Glucagon 1 mg 07/02/21 21:49 Glucagon For Inj 1 Mg Vial IM PRN PRN Hypoglycemia Protocol Glucose 15 gm 07/02/21 21:49 Glucose Oral Gel 15 Gm Of Glucse In 37.5 Gm Tube PO
[2021-07-07 11:51] LABS: Glucose Point of Care 184 mg/dl (65-105)
[2021-07-07 17:03] LABS: Glucose Point of Care 232 mg/dl (65-105)
[2021-07-07] MEDS: ACETAMINOPHEN 325 MG TABLET 650 MG PO (17:30)
[2021-07-07] MEDS: WARFARIN (*PBKC) 4 MG TABLET 8 MG PO (17:32)
[2021-07-07] MEDS: INSULIN ASPART (*BKC) 100 UNITS/ML SUB-Q (17:33)
[2021-07-07] MEDS: ATORVASTATIN 40 MG TABLET 80 MG PO (21:10)
[2021-07-08] VITALS (12 sets, daily range): BP systolic 119–160; BP diastolic 47–95; PULSE 35–95; RESP 18–21; TEMP 35.9–36.3; O2SAT 42–97
[2021-07-08 07:15] LABS: Basophils Percent Auto 0.1 % (0.2-1.2); Eosinophils Absolute Auto 0.1 K/mm3 (0-0.3); Eosinophils Percent Auto 0.7 % (0-4.4); Hematocrit 36.5 % (42.0-52.0); Immature Granulocyte Absolute 0.22 K/mm3 (0.00-0.031); Immature Granulocyte Percent A 1.6 % (0-0.5); Lymphocytes Absolute Auto 0.81 K/mm3 (0.9-3.2); Lymphocytes Percent Auto 5.8 % (18.3-44.2); Mean Corpuscular HGB Conc 32.9 g/dl (32-36); Mean Corpuscular Hemoglobin 30.7 pg (26-34); Mean Corpuscular Volume 93.4 fl (80-100); Mean Platelet Volume 9.5 fl (7.4-10.4); Monocytes Absolute Auto 0.9 K/mm3 (0.1-0.6); Monocytes Percent Auto 6.1 % (2.6-8.5); Neutrophils Percent Auto 85.7 % (45.5-73.1); Platelet Count Result 287 k/mm3 (150-375); Red Blood Count 3.91 M/mm3 (4.6-6.20); Red Cell Distribution Width 14.4 % (11.5-14.5)
[2021-07-08 07:20] LABS: Alanine Aminotransferase 47 U/L (4-50); Aspartate Amino Transferase 37 U/L (17-59); Estimated CRCL calculation 105 ml/min; Estimated Glomerular Filt Rate > 60
[2021-07-08 07:27] LABS: INR 1.2; Prothrombin Time 15.2 Seconds (11.1-14.7)
--- NOTE | 2021-07-08 08:16 | PM.IMPN ---
Progress Note: A&P Assessment and Plan (1) Acute respiratory failure with hypoxia: Code(s): J96.01 - Acute respiratory failure with hypoxia Status: Acute Assessment and Plan: Likely 2/2 to COVID 19 pneumonia that has developed after initial diagnosis 06/26/2021. BCX w/ NG. Elevated LDH and ferritin. No baseline oxygen requirement. CT c/w COVID 19 pneumonia. Improved overnight spending a significant amount of time off oxygen. Remdisivir completed yesterday. -Oxygen as needed -Remdesivir #5 -Dexamthasone -Baricitinib #5 -Continue incruse ellipta per RT (2) Pneumonia due to COVID-19 virus: Code(s): U07.1 - COVID-19; J12.82 - Pneumonia due to coronavirus disease 2018 Status: Acute Assessment and Plan: Sepsis on admission w/ lactic acid 2.6. Widespread patchy groundglass opacification of both lungs c/w pneumonia. Patient initially dx'd 06/26/2021. Remdesivir completed 07/07/21. This appears to be resolving but the patient does still require oxygen while exerting himself. Will plan for discharge with home oxygen. -Continue dexamethasone 5/5 -Continue remdesivir 5/5 -Baricitinib 5/14 -Oxygen supplement, incruse ellipta, and Robitussin (3) H/O mechanical aortic valve replacement: Code(s): Z95.2 - Presence of prosthetic heart valve Status: Acute Assessment and Plan: INR supra-therputic on admission and vitamin K x 2 was given along with holding warfarin. INR 1.5 today. Will hold off on restarting warfarin tonight. Per Cardiology clinic note, INR goal 2-3 due to hx of atrial flutter in addition to the mechanical valve. INR 1.5 today after starting warfarin tonight. Discharge will be held until the patient INR between 2-3. -Enoxaparin 110 mg BID -Warfarin 8 mg po qhs (4) Bradycardia: Code(s): R00.1 - Bradycardia, unspecified Status: Inactive Assessment and Plan: Has returned a few days after carvedilol was held. -Continue to hold carvedilol -Appreciate cardiology recs (5) BPH (benign prostatic hyperplasia): Code(s): N40.0 - Benign prostatic hyperplasia without lower urinary tract symptoms Status: Acute Assessment and Plan: Continue home tamsulosin. (6) CAD (coronary artery disease): Code(s): I25.10 - Atherosclerotic heart disease of [place] coronary artery without angina pectoris Status: Acute Assessment and Plan: Hx of CAD on atorvastatin 80 mg daily, carvedilol 6.25 mg BID, quinapril 20 mg daily and ASA 81 mg daily. -Holding carvedilol -Continue atorvastatin, quinapril and ASA (7) Hyperlipidemia: Code(s): E78.5 - Hyperlipidemia, unspecified Status: Acute Assessment and Plan: Continue with atorvastatin and ezetimibe. (8) Hypertension: Code(s): I10 - Essential (primary) hypertension Status: Acute Assessment and Plan: On quinapril 20 mg po daily and carvedilol 6.125 BID. -Continue quinapril -Hydralazine PRN for SBP > 160 (9) DM2 (diabetes mellitus, type 2): Code(s): E11.9 - Type 2 diabetes mellitus without complications Status: Acute Assessment and Plan: Last hemoglobin a1c 6.8, so well controlled outpatient. Will likely need to start basal insulin while on dexamethasone. -Continue home metformin -POC glucose AC HS -SSI Subjective Date/time seen: Date of Service 07/08/21 08:16 Patient says he feels great and would like to go home. He says he was off oxygen from 2300 until about 0400 when 2LNC was started. He is willing to go home with oxygen as he says he believes he will be back without oxygen in a few days. Continues to be asymptomatic with HR as low as 35. Review of Systems Respiratory: Respiratory: Denies dyspnea Exam Narrative: GENERAL: NAD, cooperative HEENT: Normocephalic, atraumatic, anicteric NECK: Supple CV: Normal S1, S2, RRR, No MRG RESP: CTAB Abdomen: Soft, non-tender, non-distended, +BS EXTREMITIES
[2021-07-08] MEDS: UMECLIDINIUM BROMIDE 62.5 MCG ELLIPTA 1 PUFF INHALATION (08:18)
[2021-07-08 08:22] LABS: Glucose Point of Care 143 mg/dl (65-105)
[2021-07-08] MEDS: INSULIN ASPART (*BKC) 100 UNITS/ML 6 UNITS SUB-Q ×3 (08:38→17:13)
[2021-07-08] MEDS: BARICITINIB 2 MG TABLET 4 MG PO (08:39)
[2021-07-08] MEDS: lisinopriL 20 MG TABLET PO (08:39)
[2021-07-08] MEDS: ENOXAPARIN 120 MG/0.8 ML SYRINGE 110 MG SUB-Q ×2 (08:39→20:53)
[2021-07-08] MEDS: EZETIMIBE 10 MG TABLET PO (08:39)
[2021-07-08] MEDS: metFORMIN HCL 500 MG TABLET 1000 MG PO ×2 (08:39→17:13)
[2021-07-08] MEDS: TAMSULOSIN HCL 0.4 MG CAPSULE PO (08:39)
--- NOTE | 2021-07-08 10:51 | ECG_ITS ---
Measurements Intervals [place] Rate: 38 P: [place]: 0 QRS: 2 QRSD: 98 T: 68 QT: 517 QTc: 416 Interpretive Statements SINUS BRADYCARDIA WITH 2ND DEGREE AV BLOCK, 2:1 AV BLOCK, MOBITZ TYPE I OR II CANNOT RULE OUT SEPTAL INFARCT, AGE INDETERMINATE CONSIDER INFERIOR INFARCT, AGE INDETERMINATE BORDERLINE ST ABNORMALITY- HIGH LATERAL LEADS BASELINE ARTIFACT- V1, V4 ABNORMAL ECG Electronically Signed On 07-08-2021 12:06:12 [employer] by Andrew Richardson D.O.
--- NOTE | 2021-07-08 10:52 | PM.PNCARD ---
Progress Note: A&P Assessment and Plan (1) H/O mechanical aortic valve replacement: Code(s): Z95.2 - Presence of prosthetic heart valve Status: Acute Assessment and Plan: Followed by Dr. Broderick. On coumadin for anticoagulation goal 2.0 - 3.0. Was supratherapeutic on admission, rec'd Vit K and warfarin held until last night. INR remins 1.2 today. Will increase coumadin to 10mg tonight (2) CAD (coronary artery disease): Code(s): I25.10 - Atherosclerotic heart disease of [place] coronary artery without angina pectoris Status: Acute Assessment and Plan: CABG in 2014. On statin, ASA at home but not on med list here. This should be resumed. (3) Anticoagulated on Coumadin: Code(s): Z79.01 - [facility] (current) use of anticoagulants Status: Acute Assessment and Plan: For On-X aortic valve and atrial fibrillation. See above. (4) Pneumonia due to COVID-19 virus: Code(s): U07.1 - COVID-19; J12.82 - Pneumonia due to coronavirus disease 2018 Status: Acute Assessment and Plan: Treated with remdesivir, decadron, olumiant. Improving and is now on 2L O2. Management per primary service. (5) Bradycardia: Code(s): R00.1 - Bradycardia, unspecified Status: Inactive Assessment and Plan: Thought to be related to hypoxemia and coreg. Could also have been worsened by Remdesivir. Rate mostly 50's-60's and is sinus with 2nd degree type I AV block. EKG from today reviewed with Dr. Vega. No significant bradycardia or pauses. Continue holding Coreg. Subjective Date/time seen: 07/08/21 10:52 Interval history: Cardiology follow up for bradycardia Date of service 07/08/2021: Feeling much better today. Has been weaned to 2L O2 and is on room air at the time of exam. Denies shortness of breath, chest pain, dizzines, syncope, pre-syncope. Overall feeling well with no complaints. Review of Systems Review of Systems: All systems reviewed & are unremarkable except as noted in HPI and below Exam Const: General: comfortable and no acute distress Other: Able to lie flat HENMT: General nose exam: Normal nares present and no epistaxis Mouth: Yes moist mucous membranes Eyes: Sclera: sclerae normal Pupils: Equal, round and reactive pupils present Neck: Neck: supple and no JVD Carotids: no bruits Resp: Auscultation: rales (bilateral bases) and lung sounds not diminished Other: No chest wall tenderness Cardio: Rate: regular rate Rhythm: regular rhythm Heart sounds: Clicking heart sound present, no gallops, no murmurs and no rubs GI: Auscultation: normal bowel sounds Skin: General skin exam: normal color, rashes and/or lesions noted and no erythema Neuro: General: patient oriented x3 Cranial nerves: Yes Equal, round and reactive pupils present Speech: normal speech Other: No obvious focal deficit or facial asymmetry Extrem: General: no edema Psych: Appearance: grossly normal Mental Status: mental status grossly normal Objective Data Vital Signs Vital Signs: Vital Signs - 24 hr 07/07/21 12:00 07/07/21 16:00 07/07/21 20:00 Temperature 36.4 C L 36.3 C L 36.0 C L Pulse Rate 41 L 44 L 35 L Respiratory Rate 20 20 18 Blood Pressure 128/46 L 150/58 H 162/63 H Pulse Oximetry 98 97 96 07/07/21 20:05 07/07/21 21:15 07/07/21 22:50 Temperature Pulse Rate Respiratory Rate Blood Pressure Pulse Oximetry 98 94 86 L 07/07/21 22:53 07/08/21 00:00 07/08/21 00:59 Temperature 36.2 C L Pulse Rate 55 L Respiratory Rate 21 H Blood Pressure 124/95 H Pulse Oximetry 94 92 92 07/08/21 04:00 07/08/21 08:00 07/08/21 08:19 Temperature 36.1 C L 36.2 C L Pulse Rate 35 L 53 L Respiratory Rate 21 H 19 Blood Pressure 119/47 L 154/55 H Pulse Oximetry 97 93 93 Intake/Output Intake/Output: Intake & Output 07/05/21 07/06/21 07/07/21 07/08/21 23:59 23:59 23:59 23:59 Intake Total 2130 2802 2240 480 Output
--- NOTE | 2021-07-08 11:51 | HOMEO2EVAL ---
Evaluation was performed at [facility] Home Oxygen Evaluation RC: Home Oxygen (O2) Evaluation Start: 07/08/21 10:41 Freq: ONCE Status: Active Protocol: RPE Activity Type Activity Date Activity User E-Sign Co-Sign Detail Recorded Client Recorded Date Recorded By Document 07/08/21 11:20 [email or web address] 07/08/21 11:48 KRM Document 07/08/21 11:21 [email or web address] 07/08/21 11:48 KRM Document 07/08/21 11:23 KRM [email or web address] 07/08/21 11:48 KRM Document 07/08/21 11:27 [email or web address] 07/08/21 11:48 KRM 07/08/21 07/08/21 07/08/21 11:20 11:21 11:23 Home O2 Evaluation Test Phase Resting Resting Resting Oxygen Delivery Room Air Nasal Cannula Nasal Cannula Oxygen Flow Rate (L/min) 1 2 Pulse Oximetry (90-100 %) 87 L 88 L 90 Pulse Rate (60-100 beats/min) 50 L 50 L 45 L Activity Tolerance Ambulation Distance (feet) Home Oxygen Evaluation Comments Treatment Charges O2 Evaluation - Inpatient 07/08/21 11:27 Home O2 Evaluation Test Phase Exercise Oxygen Delivery Nasal Cannula Oxygen Flow Rate (L/min) 2 Pulse Oximetry (90-100 %) 90 Pulse Rate (60-100 beats/min) 52 L Activity Tolerance Good Ambulation Distance (feet) 50 Home Oxygen Evaluation Comments PT. REQUIRES 2LPM O2 AT REST AND WITH ACTIVITY. Treatment Charges
--- NOTE | 2021-07-08 11:54 | PCRCNOTE ---
Addendum entered by Keely Khan, [employer] 07/08/21 14:20: TANK IN THE ROOM. Original Note: PT. REQUIRES 2LPM OXYGEN AT REST AND WITH ACTIVITY AT HOME. PROVIDER AWARE. SETTING PT. UP WITH [facility].
[2021-07-08 12:12] LABS: Glucose Point of Care 153 mg/dl (65-105)
[2021-07-08] MEDS: guaiFENesin/DEXTROMETHORPHAN 10 ML UDC PO ×2 (12:37→21:00)
[2021-07-08 17:02] LABS: Glucose Point of Care 159 mg/dl (65-105)
[2021-07-08] MEDS: DOCUSATE SODIUM 100 MG CAPSULE PO (17:12)
[2021-07-08] MEDS: WARFARIN (*PBKC) 10 MG TABLET PO (17:12)
[2021-07-08] MEDS: ATORVASTATIN 40 MG TABLET 80 MG PO (20:53)
[2021-07-08 21:34] LABS: Glucose Point of Care 134 mg/dl (65-105)
[2021-07-09] VITALS (11 sets, daily range): BP systolic 114–128; BP diastolic 37–66; PULSE 35–80; RESP 16–20; TEMP 36.3–36.6; O2SAT 94–98
[2021-07-09 07:00] LABS: Basophils Percent Auto 0.2 % (0.2-1.2); Eosinophils Absolute Auto 0.2 K/mm3 (0-0.3); Eosinophils Percent Auto 1.8 % (0-4.4); Hematocrit 35.2 % (42.0-52.0); Hemoglobin 11.7 g/dL (14.0-18.0); Immature Granulocyte Absolute 0.18 K/mm3 (0.00-0.031); Immature Granulocyte Percent A 1.4 % (0-0.5); Lymphocytes Absolute Auto 0.89 K/mm3 (0.9-3.2); Lymphocytes Percent Auto 6.7 % (18.3-44.2); Mean Corpuscular HGB Conc 33.2 g/dl (32-36); Mean Corpuscular Hemoglobin 29.8 pg (26-34); Mean Corpuscular Volume 89.8 fl (80-100); Mean Platelet Volume 9.4 fl (7.4-10.4); Monocytes Absolute Auto 0.8 K/mm3 (0.1-0.6); Monocytes Percent Auto 5.8 % (2.6-8.5); Neutrophils Absolute Auto 11.2 K/mm3 (1.3-6.7); Neutrophils Percent Auto 84.1 % (45.5-73.1); Platelet Count Result 335 k/mm3 (150-375); Red Blood Count 3.92 M/mm3 (4.6-6.20); Red Cell Distribution Width 14.5 % (11.5-14.5); White Blood Count 13.3 K/mm3 (4.5-10.0)
[2021-07-09 07:17] LABS: Alanine Aminotransferase 47 U/L (4-50); Anion Gap 10 mmol/L (8-16); Aspartate Amino Transferase 34 U/L (17-59); Blood Urea Nitrogen 20 mg/dL (9-20); Calcium 8.6 mg/dL (8.4-10.2); Carbon Dioxide 26 mmol/L (22-30); Chloride 99 mmol/L (98-107); Estimated CRCL calculation 93 ml/min; Estimated Glomerular Filt Rate > 60; Glucose 122 mg/dL (65-110); Potassium 4.1 mmol/L (3.4-5.0); Sodium 135 mmol/L (137-145)
[2021-07-09 07:26] LABS: INR 1.3
--- NOTE | 2021-07-09 08:08 | PCNWS ---
Weekly nutritional screen. Patient is tolerating current diet with adequate intake. No weight loss reported. No nutritional needs at this time.
[2021-07-09] MEDS: EZETIMIBE 10 MG TABLET PO (08:16)
[2021-07-09] MEDS: BARICITINIB 2 MG TABLET 4 MG PO (08:16)
[2021-07-09] MEDS: TAMSULOSIN HCL 0.4 MG CAPSULE PO (08:16)
[2021-07-09] MEDS: lisinopriL 20 MG TABLET PO (08:16)
[2021-07-09] MEDS: metFORMIN HCL 500 MG TABLET 1000 MG PO ×2 (08:16→17:24)
[2021-07-09] MEDS: ASPIRIN 81 MG ENTERIC TABLET PO (08:16)
[2021-07-09] MEDS: INSULIN ASPART (*BKC) 100 UNITS/ML 6 UNITS SUB-Q ×3 (08:16→17:28)
[2021-07-09] MEDS: ACETAMINOPHEN 325 MG TABLET 650 MG PO (08:17)
[2021-07-09] MEDS: ENOXAPARIN 120 MG/0.8 ML SYRINGE 110 MG SUB-Q ×2 (08:17→20:16)
[2021-07-09] MEDS: DOCUSATE SODIUM 100 MG CAPSULE PO ×2 (08:22→17:24)
[2021-07-09 08:45] LABS: Glucose Point of Care 134 mg/dl (65-105)
[2021-07-09] MEDS: UMECLIDINIUM BROMIDE 62.5 MCG ELLIPTA 1 PUFF INHALATION (08:45)
[2021-07-09] MEDS: guaiFENesin/DEXTROMETHORPHAN 10 ML UDC PO ×2 (09:30→19:11)
--- NOTE | 2021-07-09 10:24 | PM.PNCARD ---
Progress Note: A&P Assessment and Plan (1) H/O mechanical aortic valve replacement: Code(s): Z95.2 - Presence of prosthetic heart valve Status: Acute Assessment and Plan: Followed by Dr. Broderick. On coumadin for anticoagulation goal 2.0 - 3.0. Was supratherapeutic on admission, rec'd Vit K and warfarin held and restarted 07/07. INR remains subtherapeutic today at 1.3. On LMWH for bridging to therapeutic INR. Increase coumadin to 11mg tonight. (2) CAD (coronary artery disease): Code(s): I25.10 - Atherosclerotic heart disease of [place] coronary artery without angina pectoris Status: Acute Assessment and Plan: CABG in 2014. On statin, ASA at home but not on med list here. This has been resumed. (3) Anticoagulated on Coumadin: Code(s): Z79.01 - [facility] (current) use of anticoagulants Status: Acute Assessment and Plan: For On-X aortic valve and atrial fibrillation. See above. (4) Pneumonia due to COVID-19 virus: Code(s): U07.1 - COVID-19; J12.82 - Pneumonia due to coronavirus disease 2018 Status: Acute Assessment and Plan: Treated with remdesivir, decadron, olumiant. Improving and is down to 2L O2. Management per primary service. (5) Bradycardia: Code(s): R00.1 - Bradycardia, unspecified Status: Inactive Assessment and Plan: Thought to be related to hypoxemia and coreg. Could also have been worsened by Remdesivir. Rate mostly 50's-60's and is sinus with 2nd degree type I AV block. No significant bradycardia or pauses. Continue holding Coreg. Subjective Date/time seen: 07/09/21 10:24 Interval history: Cardiology follow up for bradycardia Date of service 07/08/2021: Feeling much better today. Has been weaned to 2L O2 and is on room air at the time of exam. Denies shortness of breath, chest pain, dizzines, syncope, pre-syncope. Overall feeling well with no complaints. Date of service 07/09/2021: Feels well. No acute events overnight. HR remains stable 40-60. Review of Systems Review of Systems: All systems reviewed & are unremarkable except as noted in HPI and below Exam Const: General: comfortable and no acute distress Orientation/consciousness: patient oriented x3 HENMT: General nose exam: Normal nares present and no epistaxis Mouth: Yes moist mucous membranes Eyes: Sclera: sclerae normal Pupils: Equal, round and reactive pupils present Neck: Neck: supple and no JVD Carotids: no bruits Resp: Auscultation: rales (bilateral bases) and lung sounds not diminished Cardio: Rate: regular rate Rhythm: regular rhythm Heart sounds: Clicking heart sound present, no gallops, no murmurs and no rubs GI: Auscultation: normal bowel sounds Skin: General skin exam: normal color, rashes and/or lesions noted and no erythema Neuro: General: patient oriented x3 Cranial nerves: Yes Equal, round and reactive pupils present Speech: normal speech Extrem: General: no edema Other: Psych: Appearance: grossly normal Mental Status: mental status grossly normal Objective Data Vital Signs Vital Signs: Vital Signs - 24 hr 07/08/21 11:20 07/08/21 11:21 07/08/21 11:23 Temperature Pulse Rate 50 L 50 L 45 L Respiratory Rate Blood Pressure Pulse Oximetry 87 L 88 L 90 07/08/21 11:27 07/08/21 12:00 07/08/21 16:00 Temperature 35.9 C L 36.3 C L Pulse Rate 52 L 45 L 95 Respiratory Rate 18 21 H Blood Pressure 119/48 L 134/49 L Pulse Oximetry 90 95 42 L 07/08/21 20:00 07/09/21 00:00 07/09/21 04:00 Temperature 36.1 C L Pulse Rate 36 L 35 L 47 L Respiratory Rate 20 Blood Pressure 160/50 H Pulse Oximetry 97 07/09/21 06:00 07/09/21 08:00 07/09/21 09:30 Temperature 36.3 C L Pulse Rate 40 L 39 L Respiratory Rate 20 Blood Pressure 115/37 L Pulse Oximetry 97 97 Intake/Output Intake/Output: Intake & Output 07/06/21 07/07/21 07/08/21 07/09/21 23:59 23:59 23:59 23:59 Yao
--- NOTE | 2021-07-09 10:34 | PM.IMPN ---
Progress Note: A&P Assessment and Plan (1) Acute respiratory failure with hypoxia: Code(s): J96.01 - Acute respiratory failure with hypoxia Status: Acute Assessment and Plan: Likely 2/2 to COVID 19 pneumonia that has developed after initial diagnosis 06/26/2021. BCX w/ NG. Elevated LDH and ferritin. No baseline oxygen requirement. CT c/w COVID 19 pneumonia. Improved overnight spending a significant amount of time off oxygen. Remdisivir completed yesterday. -Oxygen as needed -completed Remdesivir #5 -Dexamthasone -Baricitinib #5 -Continue incruse ellipta per RT (2) Pneumonia due to COVID-19 virus: Code(s): U07.1 - COVID-19; J12.82 - Pneumonia due to coronavirus disease 2018 Status: Acute Assessment and Plan: Sepsis on admission w/ lactic acid 2.6. Widespread patchy groundglass opacification of both lungs c/w pneumonia. Patient initially dx'd 06/26/2021. Remdesivir completed 07/07/21. This appears to be resolving but the patient does still require oxygen while exerting himself. Will plan for discharge with home oxygen. -Continue dexamethasone 5/5 -Continue remdesivir 5/5 -Baricitinib 6/14 -Oxygen supplement, incruse ellipta, and Robitussin (3) H/O mechanical aortic valve replacement: Code(s): Z95.2 - Presence of prosthetic heart valve Status: Acute Assessment and Plan: INR supra-therputic on admission and vitamin K x 2 was given along with holding warfarin. INR 1.5 today. Will hold off on restarting warfarin tonight. Per Cardiology clinic note, INR goal 2-3 due to hx of atrial flutter in addition to the mechanical valve. INR 1.5 today after starting warfarin tonight. . -Enoxaparin 110 mg BID -Warfarin 10 mg po qhs Anticipate discharge once INR is therapeutic between 2 and 3 (4) Bradycardia: Code(s): R00.1 - Bradycardia, unspecified Status: Inactive Assessment and Plan: Has returned a few days after carvedilol was held. -Continue to hold carvedilol -Appreciate cardiology recs (5) BPH (benign prostatic hyperplasia): Code(s): N40.0 - Benign prostatic hyperplasia without lower urinary tract symptoms Status: Acute Assessment and Plan: Continue home tamsulosin. (6) CAD (coronary artery disease): Code(s): I25.10 - Atherosclerotic heart disease of [place] coronary artery without angina pectoris Status: Acute Assessment and Plan: Hx of CAD on atorvastatin 80 mg daily, carvedilol 6.25 mg BID, quinapril 20 mg daily and ASA 81 mg daily. -Holding carvedilol -Continue atorvastatin, quinapril and ASA (7) Hyperlipidemia: Code(s): E78.5 - Hyperlipidemia, unspecified Status: Acute Assessment and Plan: Continue with atorvastatin and ezetimibe. (8) Hypertension: Code(s): I10 - Essential (primary) hypertension Status: Acute Assessment and Plan: On quinapril 20 mg po daily and carvedilol 6.125 BID. -Continue quinapril -Hydralazine PRN for SBP > 160 (9) DM2 (diabetes mellitus, type 2): Code(s): E11.9 - Type 2 diabetes mellitus without complications Status: Acute Assessment and Plan: Last hemoglobin a1c 6.8, so well controlled outpatient. Will likely need to start basal insulin while on dexamethasone. -Continue home metformin -POC glucose AC HS -SSI Subjective Date/time seen: 07/09/21 10:34 Interval history: Patient seen and examined Patient feels better still on oxygen Patient denies fever headache chest pain I am seeing the patient for shortness of breath Exam Narrative: Alert Chest decreased air entry bilateral Abdomen nontender nondistended CVS S1 + S2 Lower extremity edema Objective Data Vital Signs Vital Signs: Vital Signs - 24 hr 07/08/21 11:20 07/08/21 11:21 07/08/21 11:23 Temperature Pulse Rate 50 L 50 L 45 L Respiratory Rate Blood Pressure Pulse Oximetry 87 L 88 L 90 07/08/21 11:27 07/08/21 1
[2021-07-09 12:27] LABS: Glucose Point of Care 191 mg/dl (65-105)
--- NOTE | 2021-07-09 15:30 | PC.NURSE ---
On 07/09/21, the student, [Mary Mercado ], provided care and completed [facility] documentation on this patient. I have reviewed the student's documentation and agree with the findings.
[2021-07-09 17:02] LABS: Glucose Point of Care 196 mg/dl (65-105)
[2021-07-09] MEDS: WARFARIN (*PBKC) 10 MG TABLET PO (17:25)
[2021-07-09] MEDS: WARFARIN (*PBKC) 1 MG TABLET PO (17:27)
[2021-07-09] MEDS: ATORVASTATIN 40 MG TABLET 80 MG PO (20:16)
[2021-07-09 21:24] LABS: Glucose Point of Care 98 mg/dl (65-105)
[2021-07-10] VITALS (8 sets, daily range): BP systolic 106–138; BP diastolic 50–53; PULSE 55–80; RESP 16–18; TEMP 36.1–36.5; O2SAT 92–95
[2021-07-10 06:32] LABS: Basophils Percent Auto 0.1 % (0.2-1.2); Eosinophils Absolute Auto 0.1 K/mm3 (0-0.3); Eosinophils Percent Auto 0.8 % (0-4.4); Hematocrit 36.7 % (42.0-52.0); Hemoglobin 12.3 g/dL (14.0-18.0); Immature Granulocyte Absolute 0.15 K/mm3 (0.00-0.031); Immature Granulocyte Percent A 1.1 % (0-0.5); Lymphocytes Absolute Auto 0.83 K/mm3 (0.9-3.2); Lymphocytes Percent Auto 6.2 % (18.3-44.2); Mean Corpuscular HGB Conc 33.5 g/dl (32-36); Mean Corpuscular Hemoglobin 29.5 pg (26-34); Mean Platelet Volume 9.8 fl (7.4-10.4); Neutrophils Absolute Auto 11.4 K/mm3 (1.3-6.7); Neutrophils Percent Auto 84.8 % (45.5-73.1); Platelet Count Result 356 k/mm3 (150-375); Red Blood Count 4.17 M/mm3 (4.6-6.20); Red Cell Distribution Width 14.4 % (11.5-14.5); White Blood Count 13.5 K/mm3 (4.5-10.0)
[2021-07-10 06:46] LABS: INR 1.5
[2021-07-10 06:48] LABS: Alanine Aminotransferase 56 U/L (4-50); Aspartate Amino Transferase 39 U/L (17-59); Estimated CRCL calculation 93 ml/min; Estimated Glomerular Filt Rate > 60
[2021-07-10 07:51] LABS: Glucose Point of Care 116 mg/dl (65-105)
[2021-07-10] MEDS: ASPIRIN 81 MG ENTERIC TABLET PO (09:05)
[2021-07-10] MEDS: BARICITINIB 2 MG TABLET 4 MG PO (09:05)
[2021-07-10] MEDS: metFORMIN HCL 500 MG TABLET 1000 MG PO ×2 (09:05→16:52)
[2021-07-10] MEDS: ENOXAPARIN 120 MG/0.8 ML SYRINGE 110 MG SUB-Q ×2 (09:05→21:00)
[2021-07-10] MEDS: DOCUSATE SODIUM 100 MG CAPSULE PO ×2 (09:05→16:52)
[2021-07-10] MEDS: EZETIMIBE 10 MG TABLET PO (09:06)
[2021-07-10] MEDS: TAMSULOSIN HCL 0.4 MG CAPSULE PO (09:06)
[2021-07-10] MEDS: lisinopriL 20 MG TABLET PO (09:06)
[2021-07-10] MEDS: INSULIN ASPART (*BKC) 100 UNITS/ML 6 UNITS SUB-Q ×3 (09:13→17:19)
[2021-07-10] MEDS: guaiFENesin/DEXTROMETHORPHAN 10 ML UDC PO ×3 (09:18→21:07)
--- NOTE | 2021-07-10 10:13 | PM.IMPN ---
Progress Note: A&P Assessment and Plan (1) Acute respiratory failure with hypoxia: Code(s): J96.01 - Acute respiratory failure with hypoxia Status: Acute Assessment and Plan: Likely 2/2 to COVID 19 pneumonia that has developed after initial diagnosis 06/26/2021. BCX w/ NG. Elevated LDH and ferritin. No baseline oxygen requirement. CT c/w COVID 19 pneumonia. Improved overnight spending a significant amount of time off oxygen. Remdisivir completed yesterday. -Oxygen as needed -completed Remdesivir #5 -Dexamthasone -Baricitinib #5 -Continue incruse ellipta per RT improved (2) Pneumonia due to COVID-19 virus: Code(s): U07.1 - COVID-19; J12.82 - Pneumonia due to coronavirus disease 2018 Status: Acute Assessment and Plan: Sepsis on admission w/ lactic acid 2.6. Widespread patchy groundglass opacification of both lungs c/w pneumonia. Patient initially dx'd 06/26/2021. Remdesivir completed 07/07/21. This appears to be resolving but the patient does still require oxygen while exerting himself. Will plan for discharge with home oxygen. -Continue dexamethasone 5/5 -Continue remdesivir 5/5 -Baricitinib 6/14 -Oxygen supplement, incruse ellipta, and Robitussin (3) H/O mechanical aortic valve replacement: Code(s): Z95.2 - Presence of prosthetic heart valve Status: Acute Assessment and Plan: INR supra-therputic on admission and vitamin K x 2 was given along with holding warfarin. INR 1.5 today. Will hold off on restarting warfarin tonight. Per Cardiology clinic note, INR goal 2-3 due to hx of atrial flutter in addition to the mechanical valve. INR 1.5 today after starting warfarin tonight. . -Enoxaparin 110 mg BID -Warfarin 11 mg po qhs Anticipate discharge once INR is therapeutic between 2 and 3 (4) Bradycardia: Code(s): R00.1 - Bradycardia, unspecified Status: Inactive Assessment and Plan: Has returned a few days after carvedilol was held. -Continue to hold carvedilol -Appreciate cardiology recs (5) BPH (benign prostatic hyperplasia): Code(s): N40.0 - Benign prostatic hyperplasia without lower urinary tract symptoms Status: Acute Assessment and Plan: Continue home tamsulosin. (6) CAD (coronary artery disease): Code(s): I25.10 - Atherosclerotic heart disease of [place] coronary artery without angina pectoris Status: Acute Assessment and Plan: Hx of CAD on atorvastatin 80 mg daily, carvedilol 6.25 mg BID, quinapril 20 mg daily and ASA 81 mg daily. -Holding carvedilol -Continue atorvastatin, quinapril and ASA (7) Hyperlipidemia: Code(s): E78.5 - Hyperlipidemia, unspecified Status: Acute Assessment and Plan: Continue with atorvastatin and ezetimibe. (8) Hypertension: Code(s): I10 - Essential (primary) hypertension Status: Acute Assessment and Plan: On quinapril 20 mg po daily and carvedilol 6.125 BID. -Continue quinapril -Hydralazine PRN for SBP > 160 (9) DM2 (diabetes mellitus, type 2): Code(s): E11.9 - Type 2 diabetes mellitus without complications Status: Acute Assessment and Plan: Last hemoglobin a1c 6.8, so well controlled outpatient. Will likely need to start basal insulin while on dexamethasone. -Continue home metformin -POC glucose AC HS -SSI Subjective Date/time seen: 07/10/21 10:14 Interval history: Patient seen and examined Patient feels weak short of breath but better than yesterday INR subtherapeutic Patient denies fever headache chest pain I am seeing the patient for hypoxia Exam Narrative: Alert Chest decreased air entry bilateral on oxygen Abdomen nontender nondistended CVS S1 + S2 Lower extremity edema Objective Data Vital Signs Vital Signs: Vital Signs - 24 hr 07/09/21 10:45 07/09/21 12:00 07/09/21 14:18 Temperature 97.8 F Pulse Rate 75 80 Respiratory Rate 16 Blood Pressure 128/46
[2021-07-10] MEDS: UMECLIDINIUM BROMIDE 62.5 MCG ELLIPTA 1 PUFF INHALATION (11:26)
[2021-07-10 11:57] LABS: Glucose Point of Care 184 mg/dl (65-105)
[2021-07-10] MEDS: OXYMETAZOLINE HCL 0.05% NAS 15 ML BTL (*BKC) 1 SPRAY NASAL ×2 (14:12→21:00)
[2021-07-10] MEDS: NEOMYCIN/POLYMYXIN/BACITRACIN OINTMENT 15 GM TUBE 1 APPLIC TOPICAL (14:12)
[2021-07-10] MEDS: WARFARIN (*PBKC) 10 MG TABLET PO (16:52)
[2021-07-10] MEDS: WARFARIN (*PBKC) 1 MG TABLET PO (16:52)
[2021-07-10 17:23] LABS: Glucose Point of Care 161 mg/dl (65-105)
--- NOTE | 2021-07-10 18:11 | PM.PNCARD ---
Progress Note: A&P Assessment and Plan (1) H/O mechanical aortic valve replacement: Code(s): Z95.2 - Presence of prosthetic heart valve Status: Acute Assessment and Plan: Followed by Dr. Broderick. On coumadin for anticoagulation goal 2.0 - 3.0. Was supratherapeutic on admission, rec'd Vit K and warfarin held and restarted 07/07. INR remains subtherapeutic today at 1.5. On LMWH for bridging to therapeutic INR. Increased coumadin to 11mg 07/09/2021. Cont same. Consider discharging on home Lovenox if INR doesn't rise soon. (2) CAD (coronary artery disease): Code(s): I25.10 - Atherosclerotic heart disease of [place] coronary artery without angina pectoris Status: Acute Assessment and Plan: CABG in 2014. On statin, ASA at home but not on med list here. This has been resumed. (3) Anticoagulated on Coumadin: Code(s): Z79.01 - termination clerk (current) use of anticoagulants Status: Acute Assessment and Plan: For On-X aortic valve and atrial fibrillation. See above. (4) Pneumonia due to COVID-19 virus: Code(s): U07.1 - COVID-19; J12.82 - Pneumonia due to coronavirus disease 2018 Status: Acute Assessment and Plan: Treated with remdesivir, decadron, olumiant. Improving and is down to 2L O2. Management per primary service. (5) Bradycardia: Code(s): R00.1 - Bradycardia, unspecified Status: Inactive Assessment and Plan: Thought to be related to hypoxemia and coreg. Could also have been worsened by Remdesivir. Rate mostly 50's-60's and is sinus with 2nd degree type I AV block. No significant bradycardia or pauses. Continue holding Coreg. Additional Plan Acute resp failure secondary to COVID pneumonia, sinus bradycardia with HR in 40s likely related to coreg and hypoxemia, Hx of Mechanical AVR (Ayden valve) and CABG in 2014, hx of DVT, plan cont warfarin and ASA, D/C coreg, O2 sat target > 88% Subjective Date/time seen: 07/10/21 18:11 Interval history: Cardiology follow up for bradycardia Date of service 07/08/2021: Feeling much better today. Has been weaned to 2L O2 and is on room air at the time of exam. Denies shortness of breath, chest pain, dizzines, syncope, pre-syncope. Overall feeling well with no complaints. Date of service 07/09/2021: Feels well. No acute events overnight. HR remains stable 40-60. Tele monitor discontinued. Date of service 07/10/2021: Remains on Lovenox 110 mg b.i.d. INR today was 1.5, now up to 11 mg since yesterday. Feels fine, up and about in his room, still on 2 L O2, hoping to get home soon. Review of Systems Constitutional: Constitutional: Denies fatigue and Denies weakness Eyes: Eyes: Reports no additional eye complaints ENT: Reports nasal congestion Comments: Sore nose and nasal congestion due to O2 etc. Cardiovascular: Cardiovascular: Denies chest pain, Denies pedal edema and Denies lightheadedness Respiratory: Respiratory: Denies dyspnea Gastrointestinal: Gastrointestinal: Denies abdominal pain Genitourinary: Genitourinary: Denies hematuria Musculoskeletal: Musculoskeletal: Reports no additional musculoskeletal complaints Integumentary/Breasts: Skin/Breast: Denies rash Neurologic: Reports system reviewed and no additional complaints, except as documented Psychiatric: Psychiatric: Reports no additional psychiatric complaints Exam Const: General: comfortable and no acute distress Orientation/consciousness: patient oriented x3 Other: Able to lie flat HENMT: General nose exam: no epistaxis Eyes: EOM: EOMs intact bilaterally Neck: Neck: supple Resp: Effort & Inspection: normal respiratory effort Auscultation: clear to auscultation bilaterally Other: No chest wall tenderness Cardio: Rate: regular rate Rhythm: regular rhythm Heart sounds: Clicking heart sound present, no gallops, no murmurs and no rubs Other: [place] valve click GI: GI Palp: Yes Soft to palpation Skin: Gener
[2021-07-10] MEDS: ATORVASTATIN 40 MG TABLET 80 MG PO (21:00)
[2021-07-10 22:08] LABS: Glucose Point of Care 138 mg/dl (65-105)
[2021-07-10] MEDS: CALCIUM CARBONATE (TUMS) 500 MG (200 MG ELEMENTAL) PO (22:47)
[2021-07-11 06:00] VITALS: BP 127/56; PULSE 77; RESP 16; TEMP 36.3; O2SAT 93
[2021-07-11 07:33] LABS: Basophils Percent Auto 0.1 % (0.2-1.2); Eosinophils Absolute Auto 0.1 K/mm3 (0-0.3); Eosinophils Percent Auto 1.1 % (0-4.4); Hematocrit 38.2 % (42.0-52.0); Hemoglobin 12.6 g/dL (14.0-18.0); Immature Granulocyte Absolute 0.12 K/mm3 (0.00-0.031); Immature Granulocyte Percent A 1.2 % (0-0.5); Lymphocytes Absolute Auto 0.78 K/mm3 (0.9-3.2); Lymphocytes Percent Auto 7.7 % (18.3-44.2); Mean Corpuscular Hemoglobin 30.3 pg (26-34); Mean Corpuscular Volume 91.8 fl (80-100); Mean Platelet Volume 9.8 fl (7.4-10.4); Monocytes Absolute Auto 0.7 K/mm3 (0.1-0.6); Monocytes Percent Auto 6.5 % (2.6-8.5); Neutrophils Absolute Auto 8.4 K/mm3 (1.3-6.7); Neutrophils Percent Auto 83.4 % (45.5-73.1); Platelet Count Result 316 k/mm3 (150-375); Red Blood Count 4.16 M/mm3 (4.6-6.20); Red Cell Distribution Width 14.7 % (11.5-14.5); White Blood Count 10.1 K/mm3 (4.5-10.0)
[2021-07-11 07:41] LABS: INR 2.2; Prothrombin Time 23.5 Seconds (11.1-14.7)
[2021-07-11 08:00] LABS: Glucose Point of Care 150 mg/dl (65-105)
[2021-07-11 08:10] LABS: Alanine Aminotransferase 53 U/L (4-50); Aspartate Amino Transferase 49 U/L (17-59); Estimated CRCL calculation 93 ml/min; Estimated Glomerular Filt Rate > 60
[2021-07-11 08:41] VITALS: O2SAT 96
[2021-07-11] MEDS: INSULIN ASPART (*BKC) 100 UNITS/ML 6 UNITS SUB-Q ×2 (08:41→12:35)
[2021-07-11] MEDS: DOCUSATE SODIUM 100 MG CAPSULE PO (08:43)
[2021-07-11] MEDS: ASPIRIN 81 MG ENTERIC TABLET PO (08:43)
[2021-07-11] MEDS: BARICITINIB 2 MG TABLET 4 MG PO (08:43)
[2021-07-11] MEDS: metFORMIN HCL 500 MG TABLET 1000 MG PO (08:43)
[2021-07-11] MEDS: EZETIMIBE 10 MG TABLET PO (08:43)
[2021-07-11] MEDS: OXYMETAZOLINE HCL 0.05% NAS 15 ML BTL (*BKC) 1 SPRAY NASAL (08:44)
[2021-07-11] MEDS: lisinopriL 20 MG TABLET PO (08:44)
[2021-07-11] MEDS: ENOXAPARIN 120 MG/0.8 ML SYRINGE 110 MG SUB-Q (08:44)
[2021-07-11] MEDS: TAMSULOSIN HCL 0.4 MG CAPSULE PO (08:44)
[2021-07-11] MEDS: NEOMYCIN/POLYMYXIN/BACITRACIN OINTMENT 15 GM TUBE 1 APPLIC TOPICAL (08:45)
[2021-07-11] MEDS: guaiFENesin/DEXTROMETHORPHAN 10 ML UDC PO (10:01)
--- NOTE | 2021-07-11 11:37 | PM.DS ---
DS: Admitting Diagnosis Discharge Date 07/02/2021 Admitting Diagnosis Dizziness DS: Discharge Diagnosis Discharge Diagnosis (1) Acute respiratory failure with hypoxia: Code(s): J96.01 - Acute respiratory failure with hypoxia Status: Acute Assessment and Plan: Likely 2/2 to COVID 19 pneumonia that has developed after initial diagnosis 06/26/2021. BCX w/ NG. Elevated LDH and ferritin. No baseline oxygen requirement. CT c/w COVID 19 pneumonia. Improved overnight spending a significant amount of time off oxygen. Remdisivir completed yesterday. -Oxygen as needed -completed Remdesivir #5 -Dexamthasone -Baricitinib #5 -Continue incruse ellipta per RT improved (2) Pneumonia due to COVID-19 virus: Code(s): U07.1 - COVID-19; J12.82 - Pneumonia due to coronavirus disease 2019 Status: Acute Assessment and Plan: Sepsis on admission w/ lactic acid 2.6. Widespread patchy groundglass opacification of both lungs c/w pneumonia. Patient initially dx'd 06/26/2021. Remdesivir completed 07/07/21. This appears to be resolving but the patient does still require oxygen while exerting himself. Will plan for discharge with home oxygen. -Continue dexamethasone 5/5 -Continue remdesivir 5/5 -Baricitinib / -Oxygen supplement, incruse ellipta, (3) H/O mechanical aortic valve replacement: Code(s): Z95.2 - Presence of prosthetic heart valve Status: Acute Assessment and Plan: INR supra-therputic on admission and vitamin K x 2 was given along with holding warfarin. INR 1.5 today. Will hold off on restarting warfarin tonight. Per Cardiology clinic note, INR goal 2-3 due to hx of atrial flutter in addition to the mechanical valve. INR 1.5 today after starting warfarin tonight. . -Enoxaparin 110 mg BID -Warfarin 11 mg po qhs Today INR is therapeutic discussed with cardiology patient will be discharged on home dose of Coumadin 8 mg daily repeat INR in 2 days (4) Bradycardia: Code(s): R00.1 - Bradycardia, unspecified Status: Inactive Assessment and Plan: Has returned a few days after carvedilol was held. -Continue to hold carvedilol -Appreciate cardiology recs follow-up with cardiology as outpatient (5) BPH (benign prostatic hyperplasia): Code(s): N40.0 - Benign prostatic hyperplasia without lower urinary tract symptoms Status: Acute Assessment and Plan: Continue home tamsulosin. (6) CAD (coronary artery disease): Code(s): I25.10 - Atherosclerotic heart disease of [place] coronary artery without angina pectoris Status: Acute Assessment and Plan: Hx of CAD on atorvastatin 80 mg daily, carvedilol 6.25 mg BID, quinapril 20 mg daily and ASA 81 mg daily. -Holding carvedilol -Continue atorvastatin, quinapril and ASA (7) Hyperlipidemia: Code(s): E78.5 - Hyperlipidemia, unspecified Status: Acute Assessment and Plan: Continue with atorvastatin and ezetimibe. (8) Hypertension: Code(s): I10 - Essential (primary) hypertension Status: Acute Assessment and Plan: On quinapril 20 mg po daily and carvedilol 6.125 BID. -Continue quinapril (9) DM2 (diabetes mellitus, type 2): Code(s): E11.9 - Type 2 diabetes mellitus without complications Status: Acute Assessment and Plan: Last hemoglobin a1c 6.8, so well controlled outpatient. Follow-up with PCP as outpatient DS: Summary Hospital Course Hospital Course: Patient presented to the hospital with dizziness was found to have bradycardia COVID-19 pneumonia was treated with remdesivir dexamethasone and Baricitinib patient condition continue to improve INR was subtherapeutic patient was started on Coumadin and Lovenox currently INR is therapeutic patient to follow-up with cardiology and PCP as outpatient repeat INR in 2 days Time Spent with Patient Time attestation: Total time spent providing and/or coordinating discharge service
[2021-07-11 11:57] LABS: Glucose Point of Care 221 mg/dl (65-105)
[2021-07-11] MEDS: INSULIN ASPART (*BKC) 100 UNITS/ML SUB-Q (12:35)
[2021-07-11 14:20] VITALS: PULSE 78; O2SAT 93
[2021-07-11 14:25] VITALS: PULSE 99; O2SAT 89
[2021-07-11 14:30] VITALS: PULSE 88; O2SAT 91
--- NOTE | 2021-07-11 14:49 | PCRCNOTE ---
Home O2 eval repeated, no home O2 needed at this time. Will contact [facility] and let them know he no longer needs set up. Transport tank is out of room as well.
== END 2021-07-11 16:03 | disposition home or self-care (01) | DRG 177 ==
PROVIDERS: Family Medicine; Nurse Practitioner; Nurse Practitioner Adult Health; Admitting Provider Internal Medicine; PCP Family Medicine; Visit Provider Internal Medicine
DX: U07.1 COVID-19 (principal); J12.82 Pneumonia due to coronavirus disease 2019; J96.01 Acute respiratory failure with hypoxia; R00.1 Bradycardia, unspecified; N40.0 Benign prostatic hyperplasia without lower urinary tract symptoms; I25.10 Atherosclerotic heart disease of native coronary artery without angina pectoris; E78.5 Hyperlipidemia, unspecified; I10 Essential (primary) hypertension; E11.9 Type 2 diabetes mellitus without complications; Z79.01 Long term (current) use of anticoagulants; Z79.82 Long term (current) use of aspirin; Z79.84 Long term (current) use of oral hypoglycemic drugs; Z79.899 Other long term (current) drug therapy; Z87.891 Personal history of nicotine dependence; Z88.0 Allergy status to penicillin; Z95.1 Presence of aortocoronary bypass graft; Z95.2 Presence of prosthetic heart valve
CPT/HCPCS: 36415; 71045; 80048; 80053; 82565; 82728; 82948; 83036; 83615; 83735; 84450; 84460; 85025; 85610; 86140; 87040; 93005; 94618; 94640; A9270; J1100; J1650; J1815; J3430; J3475; J7030

== ENCOUNTER 2021-08-09 17:17 | Emergency (ER) | payer MEDICARE, SELFPAY ==
--- NOTE | ~2021-08-09 | CT_ITS ---
EXAMINATION: CT brain wo con EXAM DATE: 08/09/2021 17:59 INDICATION: Hypertension, headaches, high blood pressure. TECHNIQUE: Spiral CT of the head was performed without contrast. Axial, coronal and sagittal images were reviewed. The dose-length product (DLP) for this examination was 681.00 mGy-cm. The exposure w as tailored according to patient size, and iterative reconstruction (ASIR) was used as additional dos e reduction technique. There is no prior study for comparison. FINDINGS: There is no acute intraparenchymal hemorrhage. No evidence of intraparenchymal brain mass lesion. No evidence of acute infarction. Please note that initial head CT has limited sensitivity f or small or acute infarctions. There is mild periventricular and subcortical hypodensity, nonspecific but probably related to small vessel ischemic disease. There is mild to moderate prominence of the sulci and ventricles related to cerebral atrophy. There is intracranial carotid arteriosclerosis. There are no extra-axial collections. There is no mass effect or midline shift. Patient has had bi lateral ocular lens surgery. Soft tissue is unremarkable. The visualized sinuses and mastoid air ce lls are well aerated. IMPRESSION: 1. No acute intracranial findings. 2. Chronic age related findings. Reviewed, dictated and finalized at location A. [facility]
[2021-08-09 17:25] VITALS: BP 175/100; PULSE 76; RESP 18; TEMP 36.3; O2SAT 94
--- NOTE | 2021-08-09 17:39 | ECG_ITS ---
Measurements Intervals [place] Rate: 77 P: 11 [place]: 255 QRS: -35 QRSD: 102 T: 97 QT: 399 QTc: 453 Interpretive Statements SINUS RHYTHM WITH FIRST DEGREE AV BLOCK LEFT AXIS DEVIATION ANTEROSEPTAL INFARCT, AGE INDETERMINATE CONSIDER INFERIOR INFARCT, AGE INDETERMINATE BORDERLINE ST-T WAVE ABNORMALITY- HIGH LATEARL LEADS BASELINE ARTIFACT- I, III, AVL, AVF, V3-V6 ABNORMAL ECG Electronically Signed On 08-10-2021 8:35:35 CARBIDE POWDER PROCESSOR by Andrew Richardson D.O.
[2021-08-09 18:08] VITALS: BP 165/66
[2021-08-09] MEDS: LOSARTAN POTASSIUM 50 MG TABLET PO (18:09)
[2021-08-09 18:11] LABS: Basophils Absolute Auto 0.02 K/mm3 (0.00-0.10); Basophils Percent Auto 0.2 % (0.0-1.0); Eosinophils Absolute Auto 0.16 K/mm3 (0.02-0.50); Eosinophils Percent Auto 1.8 % (1.0-6.0); Hematocrit 35.7 % (37.0-46.0); Hemoglobin 11.6 g/dL (12.4-15.3); Immature Granulocyte Absolute 0.02 K/mm3 (0.00-0.00); Immature Granulocyte Percent A 0.2 % (0.0-0.0); Lymphocytes Absolute Auto 0.93 K/mm3 (1.10-4.50); Lymphocytes Percent Auto 10.4 % (18.0-42.0); Mean Corpuscular HGB Conc 32.5 g/dL (32.0-36.0); Mean Corpuscular Hemoglobin 30.2 pg (27.0-31.0); Mean Platelet Volume 9.4 fl (8.7-11.0); Monocytes Absolute Auto 0.63 K/mm3 (0.10-0.90); Neutrophils Absolute Auto 7.2 K/mm3 (1.7-7.2); Neutrophils Percent Auto 80.4 % (50.0-70.0); Platelet Count Result 207 K/mm3 (150-420); Red Blood Count 3.84 M/mm3 (4.70-6.10); Red Cell Distribution Width 15.7 % (11.6-14.4)
[2021-08-09 18:23] LABS: Alanine Aminotransferase 26 U/L (16-63); Albumin Level 3.5 g/dL (3.4-5.0); Alkaline Phosphatase 92 U/L (46-116); Anion Gap 8 mmol/L (8-16); Aspartate Amino Transferase 16 U/L (15-37); Bilirubin,Total 0.7 mg/dL (0.00-1.00); Blood Urea Nitrogen 9 mg/dL (7-18); Calcium 8.2 mg/dL (8.5-10.1); Carbon Dioxide 28 mmol/L (21-32); Chloride 103 mmol/L (98-108); Estimated CRCL calculation 68 ml/min; Estimated Glomerular Filt Rate > 60; Glucose 153 mg/dL (70-99); Osmolality Calculated 289 mOsm/kg (285-295); Potassium 4.3 mmol/L (3.5-5.1); Sodium 139 mmol/L (136-145); Total Protein 6.6 g/dL (6.4-8.2)
[2021-08-09 18:25] LABS: INR 3.4; Partial Thromboplastin Time 47.2 SEC (23.90-30.70); Prothrombin Time 34.5 Seconds (9.50-12.10)
--- NOTE | 2021-08-09 18:26 | PC.NURSE ---
per pts she gave him an extra quinapril earlier today. ERP made aware.
--- NOTE | 2021-08-09 18:29 | ED.GENADULT ---
HPI - General Adult General Chief complaint: Unspecified Stated complaint: blood pressure Source: patient and family Mode of arrival: ambulatory Limitations: no limitations History of Present Illness HPI narrative: this is a 66-year-old gentleman that presents with blood pressure patient has a history of high blood pressure and CAD with peripheral artery disease history of aortic valve replacement, patient's stated that the patient was slurring his speech earlier this afternoon currently there is no slurred speech no blurry vision no neurological deficits, the patient states in self that he did not have any slurred speech or neurological deficits. Currently there is no chest pain no shortness of breath no abdominal pain blood pressure initially was 175/100, and did increase to 208 systolic. Onset (ago): hour(s) Severity: mild Related Data Home Medications Medication Instructions Recorded Confirmed aspirin 81 mg tablet,delayed 81 mg PO DAILY 08/22/19 08/09/21 release atorvastatin 80 mg tablet 80 mg PO HS 08/22/19 08/09/21 ezetimibe 10 mg tablet 10 mg PO DAILY 08/22/19 08/09/21 quinapril 20 mg tablet 20 mg PO DAILY 08/22/19 08/09/21 metformin 1,000 mg PO BID 07/02/21 08/09/21 tamsulosin 0.4 mg PO DAILY 07/02/21 08/09/21 carvedilol 6.25 mg tablet 6.25 mg PO Q12H 07/16/21 08/09/21 warfarin 1 mg tablet 1 mg PO DAILY 07/16/21 08/09/21 warfarin 6 mg tablet 6 mg PO 4XW 07/16/21 08/09/21 Allergies Allergy/AdvReac Type Severity Reaction Status Date / Time Penicillins Allergy Unknown Rash Verified 08/09/21 17:34 Review of Systems Review of Systems: All systems reviewed & are unremarkable except as noted in HPI and below PMFSH Past Medical History Medical History Anticoagulated on Coumadin CAD (coronary artery disease) Carpal tunnel syndrome DM2 (diabetes mellitus, type 2) Hyperlipidemia Hypertension Overweight Surgical History Surgical History H/O mechanical aortic valve replacement History of carpal tunnel release Left hand Hx of artificial heart valve replacement Hx of cataract surgery S/P triple vessel bypass Family History Family History Father , Age 81 Diabetes mellitus Lung cancer CAD (coronary artery disease) Mother , Age 89 Rheumatoid arthritis Social History Social History Social History: The patient lives at home with his . He has 1 biological child he is a former smoker. 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 He is a former smoker and also former smokeless tobacco. He denies any alcohol marijuana or illicit drugs. His is the durable power [employer] [place] attorney for healthcare. Code status full code Smoking status: Former smoker Tobacco type: smokeless tobacco Smokeless tobacco user: chewing tobacco Additional smoking assessment comments: Quit Smokeless tobacco in 1999. Used for 25 years Alcohol intake: former Substance use: never Additional living arrangements comments: . 1 adult child. Spiritual care concerns: No Exam Const: General: cooperative, healthy appearing, comfortable, no acute distress and well developed HENMT: Head: normal to inspection, normocephalic and atraumatic Ears: hearing grossly normal bilaterally Face and sinus: normal facial exam Mouth: Yes Normal oral and palatal mucosa present and Yes lip normal Teeth and gingiva: dentition normal Throat: posterior oropharynx normal Eyes: General: appearance normal, both eyes and all related structures Neck: Neck: normal visual inspection, full ROM and no lymphadenopathy Chest: Chest palpation & inspection: normal inspection of the chest and normal palpation of entire chest wall Resp: Effort & Inspection: normal respiratory effort and able to speak in complete
[2021-08-09 18:50] VITALS: BP 183/79; PULSE 76; RESP 16; O2SAT 95
[2021-08-09 19:06] VITALS: BP 176/78
== END 2021-08-09 19:07 | disposition home or self-care (01) ==
PROVIDERS: Emergency Provider Emergency Medicine; PCP Family Medicine
DX: I10 Essential (primary) hypertension (principal); Z79.01 Long term (current) use of anticoagulants; I25.10 Atherosclerotic heart disease of native coronary artery without angina pectoris; E11.9 Type 2 diabetes mellitus without complications; E78.5 Hyperlipidemia, unspecified; Z87.891 Personal history of nicotine dependence
CPT/HCPCS: 36415; 70450; 80053; 85025; 85610; 85730; 93005; 99283; 99284; A9270

== ENCOUNTER 2021-09-17 14:55 | Outpatient (CLI) | payer MEDICARE, SELFPAY ==
--- NOTE | ~2021-09-17 | XR_ITS ---
XR chest 2V DATE: 09/17/2021 15:40 INDICATION: Chest tightness, shortness of breath. Covid infection in June 2021 TECHNIQUE: AP and lateral views COMPARISON: 07/05/2021 portable AP chest 07/02/2021 CT chest FINDINGS: Status post sternotomy, coronary bypass graft surgery and aortic valve replacement. There is cardiomegaly. There is pulmonary vascular congestion and redistribution. There are mild pred ominantly perihilar infiltrates suggesting mild pulmonary edema. No pleural effusion or pneumothorax is evident. IMPRESSION: Cardiomegaly, pulmonary vascular congestion, mild pulmonary edema, most consistent with m ild congestive heart failure Reviewed, dictated and finalized at location A. T CLEANER IMPRESSION: Cardiomegaly, pulmonary vascular congestion, mild pulmonary edema, most consistent with mild congestive heart failure
--- NOTE | 2021-09-17 14:58 | ECG_ITS ---
Measurements Intervals [place] Rate: 40 P: [place]: 0 QRS: 20 QRSD: 97 T: 85 QT: 457 QTc: 377 Interpretive Statements SINUS RHYTHM WITH COMPLETE HEART BLOCK JUNCTIONAL ESCAPE RHYTHM BORDERLINE R WAVE PROGRESSION, ANTERIOR LEADS BORDERLINE ST-T WAVE ABNORMALITY- LAT/HIGH LAT LEADS BASELINE WANDER- I, II, III, AVR, AVL, AVF, V3-V6 ABNORMAL ECG Electronically Signed On 09-17-2021 16:46:32 OYSTER HARVESTER by Andrew Richardson D.O.
[2021-09-17 15:09] LABS: Basophils Absolute Auto 0.04 K/mm3 (0.00-0.10); Basophils Percent Auto 0.4 % (0.0-1.0); Eosinophils Absolute Auto 0.27 K/mm3 (0.02-0.50); Hematocrit 34.6 % (37.0-46.0); Hemoglobin 11.3 g/dL (12.4-15.3); Immature Granulocyte Absolute 0.04 K/mm3 (0.00-0.00); Immature Granulocyte Percent A 0.4 % (0.0-0.0); Lymphocytes Absolute Auto 0.86 K/mm3 (1.10-4.50); Lymphocytes Percent Auto 9.7 % (18.0-42.0); Mean Corpuscular HGB Conc 32.7 g/dL (32.0-36.0); Mean Corpuscular Hemoglobin 30.9 pg (27.0-31.0); Mean Corpuscular Volume 94.5 fL (78.0-102.0); Monocytes Absolute Auto 0.77 K/mm3 (0.10-0.90); Monocytes Percent Auto 8.7 % (2.0-11.0); Neutrophils Absolute Auto 6.9 K/mm3 (1.7-7.2); Neutrophils Percent Auto 77.8 % (50.0-70.0); Platelet Count Result 209 K/mm3 (150-420); Red Blood Count 3.66 M/mm3 (4.70-6.10); Red Cell Distribution Width 15.1 % (11.6-14.4); White Blood Count 8.9 K/mm3 (4.8-10.8)
[2021-09-17 16:00] LABS: Alanine Aminotransferase 31 U/L (16-63); Albumin Level 3.6 g/dL (3.4-5.0); Alkaline Phosphatase 96 U/L (46-116); Anion Gap 13 mmol/L (8-16); Aspartate Amino Transferase 15 U/L (15-37); Bilirubin,Total 1.1 mg/dL (0.00-1.00); Blood Urea Nitrogen 26 mg/dL (7-18); Calcium 8.9 mg/dL (8.5-10.1); Carbon Dioxide 24 mmol/L (21-32); Chloride 101 mmol/L (98-108); Estimated Glomerular Filt Rate 54; Glucose 151 mg/dL (70-99); NT Pro B Type Natriuretic Pept 2416 pg/mL (0-125); Osmolality Calculated 293 mOsm/kg (285-295); Potassium 4.5 mmol/L (3.5-5.1); Sodium 138 mmol/L (136-145); Total Protein 6.4 g/dL (6.4-8.2)
== END 2021-09-17 14:56 | disposition home or self-care (01) ==
LOC: CHSLAB 14:57
PROVIDERS: PCP Family Medicine; Visit Provider Nurse Practitioner Family
DX: R06.02 Shortness of breath (principal); Z01.818 Encounter for other preprocedural examination; I50.9 Heart failure, unspecified
CPT/HCPCS: 36415; 71046; 80053; 83880; 84484; 85025; 93005

== ENCOUNTER 2021-09-17 17:50 | Inpatient (IN) | payer MEDICARE, SELFPAY ==
[2021-09-17] VITALS (10 sets, daily range): BP systolic 143–163; BP diastolic 56–73; PULSE 41–45; RESP 18–24; TEMP 36.3–36.6; O2SAT 89–100; BMI 36.3
--- NOTE | ~2021-09-17 | XR_ITS ---
EXAMINATION: XR chest 1V portable DATE: 09/19/2021 05:50 INDICATION: Pulmonary edema TECHNIQUE: frontal view of the chest was obtained. COMPARISON: Chest radiograph dated 09/17/21 FINDINGS: Resolution of prior pulmonary vascular congestion and increased interstitial pattern throughout the r ight lung and in the left upper lung zone. There are some residual opacities in the left lower lung z ones. No pleural effusion or pneumothorax. Calcified nodules in the right lung base consistent with o ld granulomatous disease. Cardiomegaly. Median sternotomy wires, ostial markers and mediastinal surgi torito clips consistent with prior coronary artery bypass grafting. IMPRESSION: 1. Significant improvement in previously bilateral lung disease with some residual opacity in the lef t lower lung zone most likely mild residual pulmonary edema although pneumonia not excludable. 2. Cardiomegaly. Reviewed, dictated and finalized at location A. [facility] IMPRESSION: 1. Significant improvement in previously bilateral lung disease with some resid ual opacity in the left lower lung zone most likely mild residual pulmonary [place] although pneumonia not excludable. 2. Cardiomegaly.
--- NOTE | ~2021-09-17 | XR_ITS ---
EXAMINATION: XR chest 2V DATE: 09/21/2021 09:11 INDICATION: Pacemaker insertion TECHNIQUE: Frontal and lateral views of the chest are obtained COMPARISON: 09/20/2021 FINDINGS: The lungs are free of acute opacities. Previously described interstitial opacities have res olved. There is no pleural effusion or pneumothorax. Cardiomegaly is noted. There is mild thoracic sp ondylosis. Median sternotomy wires and mediastinal surgical clips are seen, likely from prior coronar y artery bypass grafting. A dual-lead cardiac pacemaker of the left chest wall ends with leads in exp ected locations. IMPRESSION: 1. Pacemaker insertion, no acute cardiopulmonary abnormality. 2. Cardiomegaly. Reviewed, dictated and finalized at location A. [facility]
--- NOTE | ~2021-09-17 | XR_ITS ---
EXAMINATION: XR chest 1V portable DATE: 09/17/2021 18:17 INDICATION: Chest pain. TECHNIQUE: A single frontal view of the chest was obtained. COMPARISON: Chest 2 views 09/17/2021 at 3:[address] 07/02/2021 FINDINGS: There are interstitial and airspace opacities in all lung zones bilaterally. No pleural eff usion or pneumothorax. Cardiomegaly is noted. Median sternotomy wires are noted. IMPRESSION: 1. Worsened diffuse lung disease, likely moderate pulmonary edema. 2. Cardiomegaly. Reviewed, dictated and finalized at location A. IMINER
--- NOTE | ~2021-09-17 | XR_ITS ---
XR chest 1V portable DATE: 09/20/2021 15:12 INDICATION: Pacemaker insertion TECHNIQUE: Portable AP chest on September 20, 2021 at 1505 hours COMPARISON: September 19, 2021 portable AP chest at 0537 hours FINDINGS: Status post sternotomy and coronary bypass graft surgery. There is cardiomegaly. There is p ulmonary vascular congestion and redistribution and mild bilateral mid and lower lung infiltrates sug gesting pulmonary edema. Interval placement of left-sided dual-lead pacemaker device with leads overlying right atrium and rig ht ventricle since September 19, 2021. No pneumothorax. IMPRESSION: Interval placement of left dual-lead pacemaker device since September 19, 2021 Interval congestive changes since June 19, 2022 Reviewed, dictated and finalized at location A. DEVELOPER IMPRESSION: Interval placement of left dual-lead pacemaker device since 2021 Interval congestive changes since June 19, 2022
--- NOTE | 2021-09-17 18:02 | ECG_ITS ---
Measurements Intervals [place] Rate: 40 P: [place]: 0 QRS: -36 QRSD: 94 T: 39 QT: 438 QTc: 361 Interpretive Statements SINUS RHYTHM WITH COMPLETE HEART BLOCK JUNCTIONAL ESCAPE RHYTHM LEFT AXIS DEVIATION CANNOT RULE OUT SEPTAL INFARCT, AGE INDETERMINATE CONSIDER INFERIOR INFARCT, AGE INDETERMINATE BORDERLINE ST-T WAVE ABNORMALITY- HIGH LATERAL LEADS BASELINE ARTIFACT- I, II, III, AVR, AVL, V5-V6 ABNORMAL ECG Electronically Signed On 09-17-2021 20:02:[address] by Andrew Richardson D.O.
--- NOTE | 2021-09-17 18:23 | ED.GENADULT ---
HPI - General Adult General Chief complaint: Shortness of Breath/Dyspnea Stated complaint: cp Time Seen by Provider: 09/17/21 18:02 Source: RN notes reviewed History of Present Illness HPI narrative: Patient presents emergency department from home for shortness of breath. Patient states has been having increasing shortness of breath over the past 5 days states that shortness of breath is worse with laying flat during activity states that he is also notes that his heart rate has been low and has been in the 30s and 40s over the weekend he had gone to his PCP today and stopped them where they had done an EKG showing that he was in heart block and sent to the hospital for further evaluation patient denies any fevers or chills denies any current chest pain states he does get some chest pain when he becomes severely short of breath with exertion he does have a history of aortic valve replacement and 3 stents placed and is followed by Dr. Broderick states he is on Coumadin which she has been taking Related Data Home Medications Medication Instructions Recorded Confirmed aspirin 81 mg tablet,delayed 81 mg PO DAILY 08/22/19 08/09/21 release atorvastatin 80 mg tablet 80 mg PO HS 08/22/19 08/09/21 ezetimibe 10 mg tablet 10 mg PO DAILY 08/22/19 08/09/21 metformin 1,000 mg PO BID 07/02/21 08/09/21 warfarin 1 mg tablet 1 mg PO DAILY 07/16/21 08/09/21 warfarin 6 mg tablet 6 mg PO 4XW 07/16/21 08/09/21 amlodipine 10 mg tablet 10 mg PO DAILY tablet 09/17/21 carvedilol 6.25 mg tablet 3.125 mg PO Q12H tablet 09/17/21 quinapril 20 mg tablet 20 mg PO DAILY tablet 09/17/21 Allergies Allergy/AdvReac Type Severity Reaction Status Date / Time Penicillins Allergy Unknown Rash Verified 09/17/21 12:10 Review of Systems Review of Systems: Gen.: Denies fevers or chills ENT: Denies congestion Respiratory: Ports shortness of breath CV: See HPI GI: Denies abdominal pain nausea, emesis or diarrhea Musculoskeletal: Denies back pain or muscle pain Neuro: Denies numbness, tingling, weakness or focal weakness Skin: Denies rash Except as documented, all other systems reviewed and negative PMF Past Medical History Medical History Anticoagulated on Coumadin CAD (coronary artery disease) Carpal tunnel syndrome DM2 (diabetes mellitus, type 2) Hyperlipidemia Hypertension Overweight Surgical History Surgical History H/O mechanical aortic valve replacement History of carpal tunnel release Left hand Hx of artificial heart valve replacement Hx of cataract surgery S/P triple vessel bypass Family History Family History Father , Age 81 Diabetes mellitus Lung cancer CAD (coronary artery disease) Mother , Age 89 Rheumatoid arthritis Social History Social History Social History: The patient lives at home with his . He has 1 biological child he is a former smoker. 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 He is a former smoker and also former smokeless tobacco. He denies any alcohol marijuana or illicit drugs. His is the durable power prosecuting attorney for healthcare. Code status full code Smoking status: Former smoker Tobacco type: smokeless tobacco Smokeless tobacco user: chewing tobacco Additional smoking assessment comments: Quit Smokeless tobacco in 1999. Used for 25 years Alcohol intake: former Substance use: never Additional living arrangements comments: . 1 adult child. Spiritual care concerns: No Exam Narrative: APPEARANCE: No acute distress, nontoxic, resting in bed EYES: EOMI HEENT: Normocephalic, atraumatic, OMM RESPIRATORY: No respiratory distress crackles at the bilateral lung torrez CARDIOVASCULAR: Bradycardic and regular without murmurs rubs or gallops. ABDOMINAL: So
[2021-09-17 18:34] LABS: Basophils Percent Auto 0.5 % (0.2-1.2); Eosinophils Absolute Auto 0.3 K/mm3 (0-0.3); Eosinophils Percent Auto 3.2 % (0-4.4); Hematocrit 34.6 % (42.0-52.0); Hemoglobin 11.2 g/dL (14.0-18.0); Immature Granulocyte Absolute 0.02 K/mm3 (0.00-0.031); Immature Granulocyte Percent A 0.2 % (0-0.5); Lymphocytes Absolute Auto 0.83 K/mm3 (0.9-3.2); Lymphocytes Percent Auto 9.4 % (18.3-44.2); Mean Corpuscular HGB Conc 32.4 g/dl (32-36); Mean Corpuscular Hemoglobin 31.3 pg (26-34); Mean Corpuscular Volume 96.6 fl (80-100); Mean Platelet Volume 10.8 fl (7.4-10.4); Monocytes Absolute Auto 0.8 K/mm3 (0.1-0.6); Monocytes Percent Auto 8.7 % (2.6-8.5); Neutrophils Absolute Auto 6.9 K/mm3 (1.3-6.7); Platelet Count Result 208 k/mm3 (150-375); Red Blood Count 3.58 M/mm3 (4.6-6.20); Red Cell Distribution Width 15.1 % (11.5-14.5); White Blood Count 8.8 K/mm3 (4.5-10.0)
[2021-09-17 18:42] LABS: Alanine Aminotransferase 22 U/L (4-50); Alkaline Phosphatase 92 U/L (38-126); Anion Gap 11 mmol/L (8-16); Aspartate Amino Transferase 23 U/L (17-59); Bilirubin,Total 1.4 mg/dL (0.2-1.3); Blood Urea Nitrogen 24 mg/dL (9-20); Calcium 9.1 mg/dL (8.4-10.2); Carbon Dioxide 20 mmol/L (22-30); Chloride 103 mmol/L (98-107); Estimated CRCL calculation 69 ml/min; Estimated Glomerular Filt Rate > 60; Glucose 181 mg/dL (65-110); Potassium 4.2 mmol/L (3.4-5.0); Sodium 134 mmol/L (137-145)
[2021-09-17 18:43] LABS: Prothrombin Time 46.8 Seconds (11.1-14.7)
[2021-09-17 18:44] LABS: Partial Thromboplastin Time 71.7 SECONDS (22.3-36.8)
[2021-09-17 18:54] LABS: NT Pro B Type Natriuretic Pept 2530 pg/mL (5-100); Troponin I 0.017 ng/mL (0.000-0.034)
[2021-09-17 19:06] LABS: INR 5.3
[2021-09-17 20:11] LABS: SARS-CoV-2 RNA PCR Negative
[2021-09-17] MEDS: FUROSEMIDE INJ 40 MG/4 ML VIAL IV PUSH (20:30)
[2021-09-17] MEDS: PHYTONADIONE INJ 10 MG/ML AMP SUB-Q (20:42)
[2021-09-17 20:58] LABS: Magnesium 1.3 mg/dL (1.6-2.3)
[2021-09-17] MEDS: MAGNESIUM SULF 2 GM/WATER 50ML 2 GM/50 ML BAG IVPB (21:43)
[2021-09-17 23:13] LABS: Troponin I 0.025 ng/mL (0.000-0.034)
[2021-09-18] VITALS (15 sets, daily range): BP systolic 97–150; BP diastolic 48–89; PULSE 37–68; RESP 16–23; TEMP 36.4–37; O2SAT 91–99; BMI 36.3
--- NOTE | 2021-09-18 01:01 | PM.IMHP ---
H&P: HPI History of Present Illness Date/Time: 09/18/21 01:01 Chief Complaint: Shortness of breath bradycardia Narrative: Patient presents to the emergency department from home for shortness of breath. Patient states has been having increasing shortness of breath over the past 5 days. He states the shortness breath is worse with lying flat he also states that his heart rate has been low in 30s and 40s over the weekend. He had gone to his PCP very he had an EKG done which showed heart block and hence was sent to the ED for further evaluation. Denies any fever or chills or any chest pain. Denies any leg swelling. He does have a history of aortic valve replacement and 3 stents placed and is followed by Dr. Broderick states he is on Coumadin which she has been taking. He was admitted recently in June 2021 with COVID pneumonia. He had issues with bradycardia that time and his Coreg was discontinued at the time of discharge. He later followed up with Dr. Garibay and his Coreg was resumed back until day before yesterday when he was noted to have bradycardia when his Coreg dose was lowered to 3.125 mg twice daily. Review of Systems Review of Systems: - CONSTITUTIONAL: Denies weight loss, fever and chills. - HEENT: Denies changes in vision and hearing - RESPIRATORY: Reports SOB and denies cough. - CV: Denies palpitations and CP. - GI: Denies abdominal pain, nausea, vomiting and diarrhea. - : Denies dysuria and urinary frequency. - MSK: Denies myalgia and joint pain. - SKIN: Denies rash and pruritus. - NEUROLOGICAL: Denies headache and syncope. - PSYCHIATRIC: Denies recent changes in mood. Denies anxiety and depression. All systems reviewed & are unremarkable except as noted in HPI and below Constitutional: Constitutional: Reports fatigue and Reports weakness Neurologic: Reports weakness Endocrine: Endocrine: Reports fatigue PMFSH Past Medical History Medical History Anticoagulated on Coumadin CAD (coronary artery disease) Carpal tunnel syndrome DM2 (diabetes mellitus, type 2) Hyperlipidemia Hypertension Overweight Surgical History Surgical History H/O mechanical aortic valve replacement History of carpal tunnel release Left hand Hx of artificial heart valve replacement Hx of cataract surgery S/P triple vessel bypass Family History Family History Father , Age 81 Diabetes mellitus Lung cancer CAD (coronary artery disease) Mother , Age 89 Rheumatoid arthritis Social History Social History (Updated 09/17/21 @ 23:34 by Yolande Singh RN) Social History: The patient lives at home with his . He has 1 biological child he is a former smoker. 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 He is a former smoker and also former smokeless tobacco. He denies any alcohol marijuana or illicit drugs. His is the durable power senior trial attorney for healthcare. Code status full code Smoking status: Former smoker Tobacco type: cigars and smokeless tobacco Smokeless tobacco user: chewing tobacco Additional smoking assessment comments: Quit Smokeless tobacco in 1999. Used for 25 years Alcohol intake: former Substance use: never Additional living arrangements comments: . 1 adult child. Gender identity (if verbalized by the patient): Male Sexual Orientation (if Verbalized by the Patient): Straight or Heterosexual Spiritual care concerns: No Meds Home Medications and Allergies Home Medications Medication Instructions Recorded Confirmed Type aspirin 81 mg tablet,delayed 81 mg PO DAILY 08/22/19 09/17/21 History release atorvastatin 80 mg tablet 80 mg PO HS 08/22/19 09/17/21 History ezetimibe 10 mg tablet 10 mg PO DAILY 08/22/19 09/17/21 History metformin 1,000 mg PO BID 07/02/21 09/17/21 History warfarin 1
[2021-09-18 02:12] LABS: Troponin I 0.026 ng/mL (0.000-0.034)
[2021-09-18] MEDS: MAGNESIUM SULF 2 GM/WATER 50ML 2 GM/50 ML BAG IVPB (04:14)
[2021-09-18 05:41] LABS: Basophils Absolute Auto 0.1 K/mm3 (0.0-0.1); Basophils Percent Auto 0.6 % (0.2-1.2); Eosinophils Absolute Auto 0.3 K/mm3 (0-0.3); Eosinophils Percent Auto 3.6 % (0-4.4); Hematocrit 30.7 % (42.0-52.0); Immature Granulocyte Absolute 0.03 K/mm3 (0.00-0.031); Immature Granulocyte Percent A 0.4 % (0-0.5); Lymphocytes Absolute Auto 0.78 K/mm3 (0.9-3.2); Lymphocytes Percent Auto 9.4 % (18.3-44.2); Mean Corpuscular HGB Conc 32.6 g/dl (32-36); Mean Corpuscular Hemoglobin 31.2 pg (26-34); Mean Corpuscular Volume 95.6 fl (80-100); Mean Platelet Volume 10.2 fl (7.4-10.4); Monocytes Absolute Auto 0.8 K/mm3 (0.1-0.6); Monocytes Percent Auto 9.6 % (2.6-8.5); Neutrophils Absolute Auto 6.4 K/mm3 (1.3-6.7); Neutrophils Percent Auto 76.4 % (45.5-73.1); Platelet Count Result 197 k/mm3 (150-375); Red Blood Count 3.21 M/mm3 (4.6-6.20); Red Cell Distribution Width 15.1 % (11.5-14.5); White Blood Count 8.3 K/mm3 (4.5-10.0)
[2021-09-18 05:55] LABS: Prothrombin Time 44.9 Seconds (11.1-14.7)
[2021-09-18 05:57] LABS: Anion Gap 3 mmol/L (8-16); Blood Urea Nitrogen 20 mg/dL (9-20); Calcium 8.8 mg/dL (8.4-10.2); Carbon Dioxide 26 mmol/L (22-30); Chloride 106 mmol/L (98-107); Estimated CRCL calculation 68 ml/min; Estimated Glomerular Filt Rate > 60; Glucose 115 mg/dL (65-110); Potassium 4.1 mmol/L (3.4-5.0); Sodium 135 mmol/L (137-145)
[2021-09-18] MEDS: ASPIRIN 81 MG ENTERIC TABLET PO (09:30)
[2021-09-18] MEDS: lisinopriL 20 MG TABLET PO (09:30)
[2021-09-18] MEDS: TAMSULOSIN HCL 0.4 MG CAPSULE PO (09:30)
[2021-09-18] MEDS: EZETIMIBE 10 MG TABLET PO (09:31)
[2021-09-18] MEDS: FUROSEMIDE INJ 40 MG/4 ML VIAL IV PUSH ×2 (09:31→17:59)
--- NOTE | 2021-09-18 09:34 | WPDCNINT ---
Assessment and Plan Assessment and plan (1) Third degree heart block: Code(s): I44.2 - Atrioventricular block, complete Status: Acute Assessment and Plan: High-grade AV block could be related to beta-junior and or structural heart disease, ischemic heart disease. -patient has been hemodynamically stable with adequate blood pressures -he has been complaining of shortness of breath -chest x-ray did show pulmonary edema, patient diuresed well -cardiology has been consulted, await evaluation and recommendation -patient is off Coreg -may require permanent pacemaker, will leave it to the banking center manager to decide (2) CHF (congestive heart failure): Code(s): I50.9 - Heart failure, unspecified Status: Acute Assessment and Plan: Congestive heart failure likely related to severe bradycardia complete heart block -patient was being diuresed -continue lisinopril, Lasix and amlodipine. -discontinue Coreg (3) Supratherapeutic INR: Code(s): R79.1 - Abnormal coagulation profile Status: Acute Assessment and Plan: Patient on Coumadin for mechanical heart valve -patient was given vitamin K 1 mg IV in the ER per Cardiology -INR remains 5.0 this morning (4) Shortness of breath: Code(s): R06.02 - Shortness of breath Status: Acute Assessment and Plan: Shortness of breath improved with diuresis, likely related to pulmonary edema -, continue to monitor (5) DVT prophylaxis: Code(s): Z29.9 - Encounter for prophylactic measures, unspecified Status: Acute Assessment and Plan: Supratherapeutic INR Additional Plan Discussed with patient updated with his condition and plan of care. I did tell him that we will wait for the banking center manager, and evaluate and make a recommendation Code status: Full code Critical care time spent: 44 minutes This dictation may have been done utilizing a voice recognition system. Attempts have been made to correct errors. However, there may be uncorrected grammatical, spelling, and recognition errors present. Due to a high probability of clinically significant, life threatening deterioration, the patient required my highest level of preparedness to intervene emergently and I personally spent this critical care time directly and personally managing the patient. This critical care time included obtaining a history; examining the patient; pulse oximetry; ordering and review of studies; arranging urgent treatment with development of a management plan; evaluation of patient's response to treatment; frequent reassessment; and discussions with other providers. It was exclusive of separately billable procedures and treating other patients and teaching time. Please see Assessment and Plan section and the rest of the note for further information on patient assessment and treatment [employer] Consult Note Consult date: 09/18/21 Time Seen: 06:52 Reason for consult: Complete heart block, shortness of breath HPI: Herminio Gil is a 66 year old male with past medical history of coronary artery disease status post CABG, diabetes type 2, hyperlipidemia, essential hypertension, history of mechanical aortic valve replacement on anticoagulation with Coumadin presented the ED on 09/17/2021 with complains of increasing shortness of breath, bradycardia. Patient has been having a shortness of breath for the last 5 days prior to admission, you went to his PCP who did an EKG showed complete heart block and he was sent to the ED for further evaluation. Patient has been hemodynamically stable, been on Coreg, the dose of which was decreased recently due to bradycardia. Patient does follow Dr. Broderick. EKG showed complete heart block with junctional escape rhythm. Patient was transferred to the ICU for further management Patient seen and examined this morning in the ICU, remains on 2 L nasal cannula with O2 sats between 96 and 99%. Patient states he does feel short of breath with
--- NOTE | 2021-09-18 12:20 | PM.CNCAR ---
Assessment and Plan Additional Plan This is a 66-year-old man with coronary artery disease/aortic valve disease with previous CABG and mechanical AVR in 2015. He has been doing well from his cardiac status and now presents with about 1-2 weeks of significant shortness of breath some fluid overload and the development of complete heart block on his ECG. He is on a small dose of carvedilol which of course has been stopped. I highly doubt that this is the reason for his AV node dysfunction. He will require implantation of a dual-chamber pacemaker. The procedure cannot reasonably be done today as he is not just anticoagulated but super therapeutic. His Coumadin of course has been held. He should be given some vitamin K because of his very high INR. The patient expresses hesitation to except vitamin K. Whenever his INR is under 1.5 I can implant a dual-chamber pacemaker device for treatment of this. Wang Vega MD [facility] History of Present Illness History of Present Illness Consult date/time: 09/18/21 12:20 Reason For Visit: Third-degree heart block, CHF Narrative: This is a 66-year-old man I am seeing at the request of the hospitalist because of the diagnosis of complete heart block. The patient is not known to me but does follow in our office with Dr. Broderick. Patient states that he began to feel short of breath in the last 1-2 weeks at home. He noticed that he was bradycardic and contacted our office. He is on a modest dose of carvedilol and the recommendation was to reduce the dose by half and assess his response to that. Apparently he felt more short of breath went to see his PCP at who noted on ECG that he was in complete heart block and sent him to the emergency room for evaluation. In the emergency room here he also had some shortness of breath and chest x-ray evidence of some congestive heart failure. He was given some intravenous furosemide has been having a brisk diuresis and does feel better this morning. He seems to be comfortable in bed in the ICU room 5. Without any complaints. He still is in complete heart block with a narrow QRS escape rhythm of about 35 beats per minute. That has been the rhythm since his presentation. He has not had any pauses overnight. He has not had any syncopal symptoms. The patient has a known history of coronary artery disease and underwent surgical myocardial revascularization as well as mechanical aortic valve replacement for severe aortic stenosis in November of 2014 at [facility]. He has a 23 mm On-X aortic valve. The patient several years ago switched his follow-up from [place] to our office and has been seeing my partner since then recent hospital notes do a not indicate any significant new cardiac problems. The patient was hospitalized for a week or so in late June or early July of last year with coronavirus. He was not bradycardic at the time of that admission. His ECG then did show first-degree AV block. He also has a history of atrial fibrillation and underwent DC cardioversion in 2019 restoring sinus rhythm. Because of his aortic valve of course he is anticoagulated with warfarin. His INR usually is in therapeutic range but on presentation here it is supratherapeutic at 5.3. Review of Systems Constitutional: Constitutional: Reports lethargy Eyes: Eyes: Reports no additional eye complaints ENT: Reports system reviewed and no additional complaints, except as documented Cardiovascular: Cardiovascular: Reports as per HPI Respiratory: Respiratory: Reports dyspnea Gastrointestinal: Gastrointestinal: Reports no additional gastrointestinal complaints Musculoskeletal: Musculoskeletal: Reports no additional musculoskeletal complaints Integumentary/Breasts: Skin/Breast: Reports system reviewed and no additional complaints, except as docu Neurologic: Reports system reviewed and no additional complaints, except as documented Endocrine: Endocrine: Reports no additional endocrine c
[2021-09-18] MEDS: PHYTONADIONE ADULT INJ 10 MG in DEXTROSE 5% IN WATER 50 ML 100 MG IVPB (13:10)
[2021-09-18 13:49] LABS: Glucose Point of Care 120 mg/dl (65-105)
[2021-09-18] MEDS: amLODIPine BESYLATE 5 MG TABLET 10 MG PO (17:59)
[2021-09-18 18:30] LABS: Glucose Point of Care 210 mg/dl (65-105)
[2021-09-18 20:22] LABS: Glucose Point of Care 125 mg/dl (65-105)
[2021-09-18] MEDS: ATORVASTATIN 40 MG TABLET 80 MG PO (21:17)
[2021-09-19] VITALS (14 sets, daily range): BP systolic 140–163; BP diastolic 52–64; PULSE 38–52; RESP 13–23; TEMP 36.3–36.8; O2SAT 91–97; BMI 34.4
--- NOTE | 2021-09-19 | ECHO_ITS ---
Patient Info Name: Herminio Gil Age: 66 years : 1955 Gender: Male Ht: 68 in Wt: 226 lbs BSA: 2.26 m2 HR: 40 bpm BP: 151 / 59 mmHg Heart Rhythm: Sinus Rhythm Technical Quality: Good, Fair Exam Date: 09/19/2021 11:19 AM Exam [facility] Pul[facility] Ex[facility] Room: [facility] Patient Status: Inpatient Admit Date: 09/18/2021 Staff Ordering Physician: Felipe Guadalupe MD Supervisor Bindery: Roxana Santiago RDCS Attending Provider: Tad Self MD Referring Physician: Collins MENESES; Exam Type: CA echo doppler color flow Study Info Indications - chb CAD HX/O CABG AVR Complete two-dimensional, color flow and Doppler transthoracic echocardiogram is performed. Summary 1. Complete two-dimensional, color flow and Doppler transthoracic echocardiogram is performed. 2. Left ventricular chamber dimension is normal. 3. Left ventricular systolic function is hyperdynamic, estimated at >70%. 4. There is mildly increased left ventricular wall thickness. 5. Left ventricular septal wall motion is normal. 6. The left ventricular diastolic function is abnormal. 7. Left atrial chamber dimension is mildly enlarged. 8. There is mild not well visualized prosthetic aortic valve stenosis with a peak velocity of 296 cm/s, mean gradient of 16 mmHg, and aortic valve area of 1.9 cm2. 9. There is trace regurgitation of the not well visualized prosthetic aortic valve. 10. The mitral valve has thickened leaflets and calcified annulus. 11. There is mild mitral valve regurgitation. 12. There is mild tricuspid valve regurgitation. 13. Moderate pulmonary hypertension, estimated pulmonary arterial systolic pressure is 53 mmHg. 14. There is mild pulmonic regurgitation. Left Ventricle Left ventricular chamber dimension is normal. Left ventricular systolic function is hyperdynamic, estimated at >70%. There is mildly increased left ventricular wall thickness. Left ventricular septal wall motion is normal. The left ventricular diastolic function is abnormal. Right Ventricle Right ventricular chamber dimension is normal. Right ventricular systolic function is normal. Left Atria Left atrial chamber dimension is mildly enlarged. Right Atria Right atrial chamber dimension is normal. Atrial Septum Intact interatrial septum visualized by color flow imaging. Aortic Valve There is mild not well visualized prosthetic aortic valve stenosis with a peak velocity of 296 cm/s, mean gradient of 16 mmHg, and aortic valve area of 1.9 cm2. There is trace regurgitation of the not well visualized prosthetic aortic valve. Pulmonic Valve The pulmonic valve is normal. There is no pulmonic valve stenosis. There is mild pulmonic regurgitation. Mitral Valve The mitral valve has thickened leaflets and calcified annulus. There is no mitral valve stenosis. There is mild mitral valve regurgitation. Tricuspid Valve The tricuspid valve leaflets are normal. There is no significant tricuspid valve stenosis. There is mild tricuspid valve regurgitation. Moderate pulmonary hypertension, estimated pulmonary arterial systolic pressure is 53 mmHg. Pericardium/Pleural The pericardium appears normal. There is no pericardial effusion. Inferior Vena Cava Normal inferior vena cava with >50% collapse upon inspiration consistent with normal right atrial pressure, 10 mmHg. Aorta The aortic root size at the sinus of Valsalva is normal. Left Ventricular Outflow Tract
[2021-09-19 06:09] LABS: Basophils Absolute Auto 0.1 K/mm3 (0.0-0.1); Basophils Percent Auto 0.6 % (0.2-1.2); Eosinophils Absolute Auto 0.3 K/mm3 (0-0.3); Eosinophils Percent Auto 2.8 % (0-4.4); Hematocrit 35.1 % (42.0-52.0); Hemoglobin 11.4 g/dL (14.0-18.0); Immature Granulocyte Absolute 0.03 K/mm3 (0.00-0.031); Immature Granulocyte Percent A 0.3 % (0-0.5); Lymphocytes Absolute Auto 0.95 K/mm3 (0.9-3.2); Mean Corpuscular HGB Conc 32.5 g/dl (32-36); Mean Corpuscular Hemoglobin 30.6 pg (26-34); Mean Corpuscular Volume 94.4 fl (80-100); Mean Platelet Volume 10.3 fl (7.4-10.4); Monocytes Absolute Auto 0.9 K/mm3 (0.1-0.6); Monocytes Percent Auto 8.9 % (2.6-8.5); Neutrophils Absolute Auto 8.3 K/mm3 (1.3-6.7); Neutrophils Percent Auto 78.4 % (45.5-73.1); Platelet Count Result 233 k/mm3 (150-375); Red Blood Count 3.72 M/mm3 (4.6-6.20); Red Cell Distribution Width 15.1 % (11.5-14.5); White Blood Count 10.6 K/mm3 (4.5-10.0)
[2021-09-19 06:18] LABS: Alanine Aminotransferase 23 U/L (4-50); Albumin Level 3.8 g/dL (3.5-5.1); Alkaline Phosphatase 77 U/L (38-126); Anion Gap 7 mmol/L (8-16); Aspartate Amino Transferase 24 U/L (17-59); Blood Urea Nitrogen 20 mg/dL (9-20); Calcium 8.9 mg/dL (8.4-10.2); Carbon Dioxide 29 mmol/L (22-30); Chloride 101 mmol/L (98-107); Estimated CRCL calculation 63 ml/min; Estimated Glomerular Filt Rate 60; Glucose 128 mg/dL (65-110); Magnesium 1.7 mg/dL (1.6-2.3); Phosphorus 4.5 mg/dL (2.5-4.5); Potassium 4.2 mmol/L (3.4-5.0); Sodium 137 mmol/L (137-145)
[2021-09-19 06:28] LABS: INR 1.7; Prothrombin Time 19.2 Seconds (11.1-14.7)
[2021-09-19 06:29] LABS: Partial Thromboplastin Time 42.3 SECONDS (22.3-36.8)
[2021-09-19] MEDS: ASPIRIN 81 MG ENTERIC TABLET PO (08:56)
[2021-09-19] MEDS: lisinopriL 20 MG TABLET PO (08:56)
[2021-09-19 08:58] LABS: Glucose Point of Care 131 mg/dl (65-105)
--- NOTE | 2021-09-19 10:44 | PM.PNCARD ---
Progress Note: A&P Assessment and Plan (1) Third degree heart block: Code(s): I44.2 - Atrioventricular block, complete Status: Acute Assessment and Plan: Hemodynamically stable. NPO after midnight plan for pacer tomorrow. Will repeat an INR this afternoon. 2D echocardiogram Doppler to assess LV function before pacer implantation. (2) Supratherapeutic INR: Code(s): R79.1 - Abnormal coagulation profile Status: Acute Assessment and Plan: INR is drifting down. Still above 1.5. Continue to hold warfarin (3) H/O mechanical aortic valve replacement: Code(s): Z95.2 - Presence of prosthetic heart valve Status: Acute Assessment and Plan: Will start him on a heparin drip since his INR is subtherapeutic for his mechanical AVR. (4) CHF (congestive heart failure): Code(s): I50.9 - Heart failure, unspecified Status: Acute Assessment and Plan: This is and not true systolic or diastolic heart failure. Is related to his heart block Subjective Date/time seen: 09/19/21 10:44 Interval history: 66-year-old admitted with shortness breath and found to be in heart block Date of service 09/19/2021: Feels okay. No chest pain, shortness breath, dizziness or syncope while at rest. Review of Systems Constitutional: Constitutional: Reports lethargy Eyes: Eyes: Reports no additional eye complaints ENT: Reports system reviewed and no additional complaints, except as documented Cardiovascular: Cardiovascular: Reports as per HPI and Reports dyspnea Respiratory: Respiratory: Reports dyspnea Gastrointestinal: Gastrointestinal: Reports no additional gastrointestinal complaints Musculoskeletal: Musculoskeletal: Reports no additional musculoskeletal complaints Integumentary/Breasts: Skin/Breast: Reports system reviewed and no additional complaints, except as docu Neurologic: Reports system reviewed and no additional complaints, except as documented Endocrine: Endocrine: Reports no additional endocrine complaints Hematologic/Lymphatic: Hematologic/Lymphatic: Reports no additional hematologic/lymphatic complaints Allergic/Immunologic: Allergic/Immunologic: Reports no additional allergic/immunologic complaints Exam Const: General: comfortable and no acute distress Other: Pleasant overweight man no apparent distress HENMT: Mouth: Yes moist mucous membranes Eyes: Sclera: sclerae normal Pupils: Equal, round and reactive pupils present Neck: Neck: supple and no JVD Other: Carotid pulses are intact and without any bruits Resp: Effort & Inspection: normal respiratory effort Auscultation: clear to auscultation bilaterally Cardio: Rate: bradycardic Rhythm: regular rhythm Other: Normal crisp aortic valve closure sound is noted GI: Auscultation: normal bowel sounds Skin: General skin exam: normal color Neuro: Cranial nerves: Yes Equal, round and reactive pupils present Cognition (Neuro): normal cognition Extrem: Other: Mild symmetrical lower extremity edema Objective Data Vital Signs Vital Signs: Vital Signs - 24 hr 09/18/21 12:00 09/18/21 14:00 09/18/21 16:00 Temperature 36.8 C 36.7 C Pulse Rate 38 L 37 L 39 L Respiratory Rate 16 20 18 Blood Pressure 128/89 138/53 L 106/73 Pulse Oximetry 93 96 94 09/18/21 18:00 09/18/21 20:00 09/18/21 20:16 Temperature 36.4 C Pulse Rate 42 L 42 L 42 L Respiratory Rate 18 18 18 Blood Pressure 125/48 L 125/48 L Pulse Oximetry 96 96 96 09/18/21 22:00 09/18/21 23:10 09/18/21 23:31 Temperature 36.7 C Pulse Rate 41 L 39 L 40 L Respiratory Rate 23 H Blood Pressure 97/55 L Pulse Oximetry 97 09/19/21 00:00 09/19/21 02:00 09/19/21 04:00 Temperature 36.5 C Pulse Rate 43 L 40 L 41 L Respiratory Rate 23 H 13 23 H Blood Pressure 140/52 L Pulse Oximetry 97 94 97 09/19/21 06:00 09/19/21 06:06 09/19/21 08:00 Temperature 36.7 C 36.7 C Pulse Rate 38 L 38 L 39 L Respiratory Rate 21 H
[2021-09-19] MEDS: EZETIMIBE 10 MG TABLET PO (10:53)
[2021-09-19] MEDS: metFORMIN HCL 500 MG TABLET 1000 MG PO ×2 (10:53→16:30)
[2021-09-19] MEDS: TAMSULOSIN HCL 0.4 MG CAPSULE PO (10:54)
[2021-09-19] MEDS: HEPARIN SOD/D5W 100 UNITS/ML 25,000 UNITS/250 ML BAG 15 UNITS IV CONT (11:50)
[2021-09-19 12:00] LABS: Glucose Point of Care 126 mg/dl (65-105)
--- NOTE | 2021-09-19 13:51 | PM.IMPN ---
Progress Note: A&P Assessment and Plan (1) Third degree heart block: Code(s): I44.2 - Atrioventricular block, complete Status: Acute Assessment and Plan: High-grade AV block could be related to beta-junior and or structural heart disease, ischemic heart disease. 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 Patient states has been having increasing shortness of breath over the past 5 days. He states the shortness breath is worse with lying flat he also states that his heart rate has been low in 30s and 40s over the weekend. He had gone to his PCP very he had an EKG done which showed heart block and hence was sent to the ED for further evaluation. Denies any fever or chills or any chest pain. Denies any leg swelling. He does have a history of aortic valve replacement and 3 stents placed and is followed by Dr. Broderick states he is on Coumadin which she has been taking. He was admitted recently in June 2021 with COVID pneumonia. He had issues with bradycardia that time and his Coreg was discontinued at the time of discharge. He later followed up with Dr. Garibay and his Coreg was resumed back until day before yesterday when he was noted to have bradycardia when his Coreg dose was lowered to 3.125 mg twice daily. 09/19/2021 interval history: patient with shortness of bread bradycardia is found to third-degree heart block, seen by cardiology recommending biventricular pacemaker however patient has history of mechanical aortic valve, and chronically anticoagulated with warfarin upon arrival patient INR was supratherapeutic, patient is given vitamin K and today patient INR is 1.7 cardiology recommending INR to be below 1.5 will continue to monitor and further recommendation to follow, remains clinically stable currently denies any complaint of chest pain or shortness of breath dizziness, (2) CHF (congestive heart failure): Code(s): I50.9 - Heart failure, unspecified Status: Acute Assessment and Plan: Congestive heart failure likely related to severe bradycardia complete heart block -patient was being diuresed -continue lisinopril, Lasix and amlodipine. -discontinue Coreg (3) Supratherapeutic INR: Code(s): R79.1 - Abnormal coagulation profile Status: Acute Assessment and Plan: Patient on Coumadin for mechanical heart valve -patient was given vitamin K 1 mg IV in the ER per Cardiology -INR remains 5.0 this morning (4) Shortness of breath: Code(s): R06.02 - Shortness of breath Status: Acute Assessment and Plan: Shortness of breath improved with diuresis, likely related to pulmonary edema -, continue to monitor (5) DVT prophylaxis: Code(s): Z29.9 - Encounter for prophylactic measures, unspecified Status: Acute Assessment and Plan: Supratherapeutic INR Subjective Date/time seen: 09/19/21 13:51 Chief Complaint: Shortness of breath bradycardia Narrative: Patient presents to the emergency department from home for shortness of breath. Patient states has been having increasing shortness of breath over the past 5 days. He states the shortness breath is worse with lying flat he also states that his heart rate has been low in 30s and 40s over the weekend. He had gone to his PCP very he had an EKG done which showed heart block and hence was sent to the ED for further evaluation. Denies any fever or chills or any chest pain. Denies any leg swelling. He does have a history of aortic valve replacement and 3 stents placed and is
[2021-09-19 16:26] LABS: INR 1.4; Prothrombin Time 16.5 Seconds (11.1-14.7)
[2021-09-19] MEDS: amLODIPine BESYLATE 5 MG TABLET 10 MG PO (16:30)
[2021-09-19 17:05] LABS: Glucose Point of Care 89 mg/dl (65-105)
[2021-09-19 19:04] LABS: Partial Thromboplastin Time 68.1 SECONDS (22.3-36.8)
[2021-09-19] MEDS: HEPARIN SODIUM 5,000 UNITS/ML VIAL 3500 UNITS IV PUSH (19:15)
[2021-09-19] MEDS: ATORVASTATIN 40 MG TABLET 80 MG PO (20:24)
[2021-09-19 21:03] LABS: Glucose Point of Care 118 mg/dl (65-105)
[2021-09-20] VITALS (18 sets, daily range): BP systolic 109–143; BP diastolic 48–95; PULSE 40–95; RESP 13–23; TEMP 36.2–36.7; O2SAT 92–97
[2021-09-20 01:44] LABS: INR 1.3; Prothrombin Time 16.3 Seconds (11.1-14.7)
[2021-09-20 02:36] LABS: Partial Thromboplastin Time > 200.0 SECONDS (22.3-36.8)
[2021-09-20] MEDS: HEPARIN SOD/D5W 100 UNITS/ML 25,000 UNITS/250 ML BAG 17 UNITS IV CONT (03:23)
--- NOTE | 2021-09-20 06:47 | PC.NURSE ---
patients blood pressure was back down to 76/31. dr butterfield aware, wanted patient transferred to icu. patient had about 200 cc of fluid left in saline bag. gave to patient as a bolus before transfer. dr butterfield is aware. patient is alert and slightly confused. hot one minute and cold the next. no temp noted. vitals charted.
[2021-09-20] MEDS: TAMSULOSIN HCL 0.4 MG CAPSULE PO (08:26)
[2021-09-20] MEDS: lisinopriL 20 MG TABLET PO (08:26)
[2021-09-20] MEDS: ASPIRIN 81 MG ENTERIC TABLET PO (08:26)
[2021-09-20] MEDS: FUROSEMIDE INJ 40 MG/4 ML VIAL IV PUSH (08:26)
[2021-09-20 08:32] LABS: Glucose Point of Care 125 mg/dl (65-105)
--- NOTE | 2021-09-20 08:32 | P.CDI_ITS ---
CDI Query Clarification Request -CHF and Shortness of breath improved with diuresis, likely related to pulmonary edema has been documented -09/17 CXR impression: IMPRESSION: Cardiomegaly, pulmonary vascular congestion, mild pulmonary edema, most consistent with mild congestive heart failure -09/17 BNP 2416 and 2530 -Lasix 40mg IV ordered -09/19 Echo summary: EF >70%, left ventricular diastolic function is abnormal Please further specify type and acuity of CHF: * Diastolic *Acute * Systolic *Chronic * Both systolic and diastolic *Acute on chronic * Other * Unable to determine *Unable to determine <Angela Logan RN - Last Filed: 09/20/21 08:42> Provider Comments diastolic heart failure <Marvin Walker MD - Last Filed: 09/21/21 20:11>
[2021-09-20 12:00] LABS: Glucose Point of Care 114 mg/dl (65-105)
--- NOTE | 2021-09-20 13:14 | WPDMODSED ---
Moderate Sedation Note-Pt Data Patient Data Diagnosis: Acquired complete heart block Coronary artery disease with previous surgical revascularization Mechanical aortic valve replacement Present Complaint: Shortness of breath Procedure to be performed/Plan: Permanent pacemaker implantation Allergies Allergy/AdvReac Type Severity Reaction Status Date / Time Penicillins Allergy Unknown Rash Verified 09/17/21 12:10 Home Medications Medication Instructions Recorded Confirmed Type aspirin 81 mg tablet,delayed 81 mg PO DAILY 08/22/19 09/17/21 History release atorvastatin 80 mg tablet 80 mg PO HS 08/22/19 09/17/21 History ezetimibe 10 mg tablet 10 mg PO DAILY 08/22/19 09/17/21 History metformin 1,000 mg PO BID 07/02/21 09/17/21 History warfarin 1 mg tablet 1 mg PO 2XW 07/16/21 09/17/21 History warfarin 6 mg tablet 6 mg PO DAILY 07/16/21 09/17/21 History amlodipine 10 mg tablet 10 mg PO DAILY tablet 09/17/21 09/17/21 History carvedilol 6.25 mg tablet 3.125 mg PO Q12H tablet 09/17/21 09/17/21 History quinapril 20 mg tablet 20 mg PO DAILY tablet 09/17/21 09/17/21 History tamsulosin 0.4 mg PO DAILY 09/17/21 09/17/21 History Current Medications: Active Medications Amlodipine Besylate (Amlodipine Besylate 5 Mg Tablet) 10 mg PO Q24H [facility] Last Admin: 09/19/21 16:30 Dose: 10 mg Documented by: Aspirin (Aspirin 81 Mg Enteric Tablet) 81 mg PO DAILY [facility] Last Admin: 09/20/21 08:26 Dose: 81 mg Documented by: Atorvastatin Calcium (Atorvastatin 40 Mg Tablet) 80 mg PO HS [facility] Last Admin: 09/19/21 20:24 Dose: 80 mg Documented by: Carvedilol (Carvedilol 3.125 Mg Tablet) 3.125 mg PO Q12H [facility] Last Admin: 09/19/21 08:57 Dose: Not Given Documented by: Dextrose (Dextrose 50% 25 Gm/50 Ml Syringe) 12.5 gm IV PUSH PRN PRN; Protocol PRN Reason: Hypoglycemia Ezetimibe (Ezetimibe 10 Mg Tablet) 10 mg PO DAILY [facility] Last Admin: 09/19/21 10:53 Dose: 10 mg Documented by: Furosemide (Furosemide Inj 40 Mg/4 Ml Vial) 40 mg IV PUSH DAILY [facility] Last Admin: 09/20/21 08:26 Dose: 40 mg Documented by: Glucagon (Glucagon For Inj 1 Mg Vial) 1 mg IM PRN PRN; Protocol PRN Reason: Hypoglycemia Glucose (Glucose Oral Gel 15 Gm Of Glucse In 37.5 Gm Tube) 15 gm PO PRN PRN; Protocol PRN Reason: Hypoglycemia Heparin Sodium (Porcine) (Heparin Sodium 5,000 Units/Ml Vial) 6,500 units IV PUSH PRN PRN PRN Reason: aPTT less than 55 seconds Heparin Sodium (Porcine) (Heparin Sodium 5,000 Units/Ml Vial) 3,500 units IV PUSH PRN PRN PRN Reason: aPTT 55 - 70 seconds Last Admin: 09/19/21 19:15 Dose: 3,500 units Documented by: Dextrose (Dextrose 5% 1,000 Ml) 1,000 mls @ 100 mls/hr IVPB PRN PRN; Protocol PRN Reason: Hypoglycemia Insulin Aspart (Insulin Aspart (*Bkc) 100 Units/Ml) 3 - 6 units SUB-Q TIDWM SAFIA; Protocol Last Admin: 09/20/21 11:52 Dose: Not Given Documented by: Lisinopril (Lisinopril 20 Mg Tablet) 20 mg PO QAM [facility] Last Admin: 09/20/21 08:26 Dose: 20 mg Documented by: Metformin HCl (Metformin Hcl 500 Mg Tablet) 1,000 mg PO BIDWM [facility] Last Admin: 09/20/21 09:46 Dose: Not Given Documented by: Perflutren Lipid Microsphere (Perflutren Lipid Microspheres 1.5 Ml Vial Diluted To 10 Ml Total Volume) 0 ml IV PUSH ONCE PRN; Protocol PRN Reason: adequate visualization Sodium Chloride (Saline 0.65% Lencho Soln 44 Ml Btl) 1 spray NASAL Q6HR PRN PRN Reason: Congestion Tamsulosin HCl (Tamsulosin Hcl 0.4 Mg Capsule) 0.4 mg PO DAILY [facility] Last Admin: 09/20/21 08:26 Dose: 0.4 mg Documented by: Sedation/Anesthesia: No previous sedation/anesthesia problems (including family history). [facility] Past Medical History Medical History Anticoagulated on Coumadin CAD (coronary artery disease) Carpal tunnel syndrome DM2 (diabetes mellitus, type 2) Hyperlipidemia Hypertension Overweight Surgical History Surgical History H/O mechanical a
--- NOTE | 2021-09-20 14:50 | ECG_ITS ---
Measurements Intervals [place] Rate: 67 P: 21 NH: 173 QRS: -52 QRSD: 205 T: 116 QT: 491 QTc: 520 Interpretive Statements ELECTRONIC ATRIAL PACEMAKER ELECTRONIC VENTRICULAR PACEMAKER BASELINE ARTIFACT- I, II, AVR, V1, V5 NO FURTHER INTERPRETATION IS POSSIBLE ATYPICAL ECG Electronically Signed On 09-20-2021 15:14:35 GENERAL PRACTITIONER by Andrew Richardson D.O.
--- NOTE | 2021-09-20 14:52 | WPDCARDPROC ---
Cardiac Cath Procedure Note Date of procedure:: 09/20/21 Performing physician:: Wang Vega MD Indication:: this is a 66-year-old man with history of coronary disease and aortic valve disease having received bypass grafting and aortic valve replacement previously. He enters the hospital with acquired complete heart block and for this reason a permanent pacemaker implant has been recommended. Brief clinical history:: As above Procedure Procedure performed:: permanent dual-chamber pacemaker implantation Sedation/Medication given:: fentanyl 25 mg Versed 2 mg Access site:: left subclavian vein Estimated blood loss:: 30 cc Procedure note:: patient was brought to cardiac catheterization lab in the postabsorptive state where the left anterior chest wall was prepped and draped usual fashion. Anesthesia was given below the clavicle with 1% lidocaine. Following this an incision was made about 1 in below the clavicle from the midclavicular line to the deltopectoral groove. Electrocautery was used this provide cutaneous hemostasis. Using sharp and blunt dissection the subcutaneous tissue was down to the level of the prepectoral fascia. Blunt dissection was made to create a pacemaker pocket inferior to the incision. The pocket was then packed with antibiotic soaked 4 x 4. Attention was then turned to venous access. Using the 2 safe sheath kit provided 2 separate punctures were made of the left subclavian vein with a J-tip guidewires advanced under fluoroscopic visualization into the venous circulation to the level of the right atrium. Using the 2 6 [place] SafeSheath devices provided the 2 leads mentioned below were placed into the venous circulation into the right atrial level. The pacemaker sheaths were then peeled back. Attention was turned to the ventricular lead. The straight stylet was removed used a 3 cc syringe to fashion a J-tip stylet in that it is near the lead through the RV out into the pulmonary artery position. A straight stylet was then placed into the lead it was withdrawn and placed into the RV apex. The lead position was in the low septum just above the apex. The lead was then secured in position by deploying the fixation screw. Appropriate pacing and sensing performance was demonstrated and no extracardiac stimulation was seen with 10 volts stimulus. Following this attention was turned to the atrial lead. The straight stylet was removed and a preformed J stylet stylet was placed into the lead. It was placed into the right atrial appendage position the fixation screw was then deployed upon withdrawal of the lead the lead tip was fixed into position. The stent lead was tested and appropriate pacing and sensing was was also demonstrated. Following this the leads were secured to the base of the pocket using the suture sleeves and 2-0 silk ties. The retained sponge was removed and the pocket was irrigated with antibiotic infused saline. After this pacemaker generator was connected Using the supplied torque wrench and the entire assembly was placed in the newly created pocket. the wound was then closed in layers using 3-0 Vicryl in an interrupted fashion for the subcutaneous tissue and 4-0 Vicryl in a running subcuticular fashion for the skin. The wound was dressed with an Aquacel dressing left arm was placed in an immobilizer. The patient was taken back to the holding area for post pacemaker implant recovery. Procedure was well tolerated on uncomplicated. Findings:: Patient received a Biotronik dual-chamber pacemaker model Edora 8 -tamra. [id number]. serial number [id number]. device is programmed in the DDD mode lower rate limit 60 upper rate limit 130. The atrial lead is a Biotronik screw-in bipolar lead model Solia S 45, [id number]. serial [id number]. the P-waves are sensed at 1 mV pacing threshold is 0.9 volts at 0.4 milliseconds impedance 390 Ohms. The ventricular lead is a Biotronik screw-in bipolar lead mode
--- NOTE | 2021-09-20 16:25 | PM.IMPN ---
Progress Note: A&P Assessment and Plan (1) Third degree heart block: Code(s): I44.2 - Atrioventricular block, complete Status: Acute Assessment and Plan: Patient presents to the emergency department from home for shortness of breath. Patient states has been having increasing shortness of breath over the past 5 days. He states the shortness breath is worse with lying flat he also states that his heart rate has been low in 30s and 40s over the weekend. He had gone to his PCP very he had an EKG done which showed heart block and hence was sent to the ED for further evaluation. Denies any fever or chills or any chest pain. Denies any leg swelling. He does have a history of aortic valve replacement and 3 stents placed and is followed by Dr. Broderick states he is on Coumadin which she has been taking. He was admitted recently in June 2021 with COVID pneumonia. He had issues with bradycardia that time and his Coreg was discontinued at the time of discharge. He later followed up with Dr. Garibay and his Coreg was resumed back until day before yesterday when he was noted to have bradycardia when his Coreg dose was lowered to 3.125 mg twice daily. High-grade AV block could be related to beta-junior and or structural heart disease, ischemic heart disease. -patient has been hemodynamically stable with adequate blood pressures -he has been complaining of shortness of breath -chest x-ray did show pulmonary edema, patient diuresed well -patient is off Coreg -hemodynamically stable. s/p biventricular pacemaker [facility] 09/20/2021 (2) CHF (congestive heart failure): Code(s): I50.9 - Heart failure, unspecified Status: Acute Assessment and Plan: Congestive heart failure likely related to severe bradycardia complete heart block -patient was being diuresed -continue lisinopril, Lasix and amlodipine. -discontinue Coreg cxr with improved congsetive changes on repeat (3) Supratherapeutic INR: Code(s): R79.1 - Abnormal coagulation profile Status: Acute Assessment and Plan: Patient on Coumadin for mechanical heart valve -patient was given vitamin K 1 mg IV in the ER per Cardiology -INR now subtherapeutic for the planned pacemaker implantation. on briding heparin gtt. (4) Shortness of breath: Code(s): R06.02 - Shortness of breath Status: Acute Assessment and Plan: Shortness of breath improved with diuresis, likely related to pulmonary edema -, continue to monitor (5) DVT prophylaxis: Code(s): Z29.9 - Encounter for prophylactic measures, unspecified Status: Acute Assessment and Plan: Supratherapeutic INR on admission now reversed. on briding heparin gtt due to mechanical AVR, warfarin has been restarted by cardiology post PPM placement Subjective Date/time seen: 09/20/21 16:25 Interval history: 66-year-old admitted with shortness breath and found to be in heart block he is status post pacemekr palcement today. no new compalints. he is breathing well.n o nausea, vomiting, sob, chest pain. Review of Systems Review of Systems: All systems reviewed & are unremarkable except as noted in HPI and below Exam Narrative: moderately obese Patient is comfortable, NAD HEENT: eyes are clear and none icteric CHEST left upper chest with dressing inplace LUNGS: normal respiratory effort, clear to ausculatation, ABD: distended, soft, nont rahul Lower extremities: no edema SKIN: nonjaundiced Neuro: grossly intact. Objective Data Vital Signs Vital Signs: Vital Signs - 24 hr 09/19/21 18:00 09/19/21 20:00 09/19/21 22:00 Temperature 97.3 F L Pulse Rate 52 L 45 L 43 L Respiratory Rate 13 Blood Pressure 144/57 H Pulse Oximetry 91 09/20/21 00:00 09/20/21 02:00 09/20/21 04:00 Temperature 98.0 F 97.2 F L Pulse Rate 43 L 41 L 40 L Respiratory Rate 23 H 20 Blood Pressure 131/51 L 109/48 L Pulse Oximetry 92 94 09/20/21 06:00 09/20/21
[2021-09-20 16:48] LABS: Glucose Point of Care 111 mg/dl (65-105)
[2021-09-20] MEDS: SODIUM CHLORIDE 0.9% IV 1,000 ML 50 ML IV CONT (16:51)
[2021-09-20] MEDS: metFORMIN HCL 500 MG TABLET 1000 MG PO (16:52)
[2021-09-20] MEDS: WARFARIN (*PBKC) 3 MG TABLET 6 MG PO (16:53)
[2021-09-20] MEDS: EZETIMIBE 10 MG TABLET PO (16:53)
[2021-09-20] MEDS: amLODIPine BESYLATE 5 MG TABLET 10 MG PO (16:53)
[2021-09-20] MEDS: ATORVASTATIN 40 MG TABLET 80 MG PO (20:26)
[2021-09-20 21:29] LABS: Glucose Point of Care 152 mg/dl (65-105)
[2021-09-21] VITALS (9 sets, daily range): BP systolic 135–159; BP diastolic 72–76; PULSE 73–88; RESP 17–21; TEMP 35.7–36.7; O2SAT 93–97
[2021-09-21] MEDS: ACETAMINOPHEN 325 MG TABLET 650 MG PO (05:20)
[2021-09-21 05:51] LABS: Basophils Percent Auto 0.5 % (0.2-1.2); Eosinophils Absolute Auto 0.5 K/mm3 (0-0.3); Eosinophils Percent Auto 5.3 % (0-4.4); Hematocrit 33.9 % (42.0-52.0); Hemoglobin 11.1 g/dL (14.0-18.0); Immature Granulocyte Absolute 0.02 K/mm3 (0.00-0.031); Immature Granulocyte Percent A 0.2 % (0-0.5); Lymphocytes Absolute Auto 0.78 K/mm3 (0.9-3.2); Mean Corpuscular HGB Conc 32.7 g/dl (32-36); Mean Corpuscular Hemoglobin 30.9 pg (26-34); Mean Corpuscular Volume 94.4 fl (80-100); Monocytes Absolute Auto 0.7 K/mm3 (0.1-0.6); Neutrophils Absolute Auto 6.7 K/mm3 (1.3-6.7); Platelet Count Result 232 k/mm3 (150-375); Red Blood Count 3.59 M/mm3 (4.6-6.20); White Blood Count 8.7 K/mm3 (4.5-10.0)
[2021-09-21 06:01] LABS: Alanine Aminotransferase 17 U/L (4-50); Albumin Level 3.9 g/dL (3.5-5.1); Alkaline Phosphatase 82 U/L (38-126); Anion Gap 5 mmol/L (8-16); Aspartate Amino Transferase 22 U/L (17-59); Bilirubin,Total 1.5 mg/dL (0.2-1.3); Blood Urea Nitrogen 12 mg/dL (9-20); Calcium 8.8 mg/dL (8.4-10.2); Carbon Dioxide 25 mmol/L (22-30); Chloride 104 mmol/L (98-107); Estimated CRCL calculation 73 ml/min; Estimated Glomerular Filt Rate > 60; Glucose 117 mg/dL (65-110); Magnesium 1.6 mg/dL (1.6-2.3); Potassium 3.9 mmol/L (3.4-5.0); Sodium 134 mmol/L (137-145)
[2021-09-21 06:03] LABS: INR 1.1
[2021-09-21] MEDS: TAMSULOSIN HCL 0.4 MG CAPSULE PO (08:21)
[2021-09-21] MEDS: ASPIRIN 81 MG ENTERIC TABLET PO (08:22)
[2021-09-21] MEDS: metFORMIN HCL 500 MG TABLET 1000 MG PO (08:22)
[2021-09-21] MEDS: EZETIMIBE 10 MG TABLET PO (08:22)
[2021-09-21] MEDS: FUROSEMIDE INJ 40 MG/4 ML VIAL IV PUSH (08:22)
[2021-09-21] MEDS: lisinopriL 20 MG TABLET PO (08:22)
[2021-09-21 08:25] LABS: Glucose Point of Care 111 mg/dl (65-105)
--- NOTE | 2021-09-21 08:47 | PM.PNCARD ---
Progress Note: A&P Assessment and Plan (1) Third degree heart block: Code(s): I44.2 - Atrioventricular block, complete Status: Acute Assessment and Plan: Status post pacemaker yesterday, interrogated today, normal function with good thresholds. Ventricularly pacing 100%. CXR looks great, leads in good position, lungs clear. Okay for discharge today. Sending ERx for clindamycin for 1 week to the pt's pharmacy. Has FU scheduled; see discharge instructions. (2) Supratherapeutic INR: Code(s): R79.1 - Abnormal coagulation profile Status: Acute Assessment and Plan: INR was high on admission, now 1.1. Warfarin was resumed yesterday. (3) H/O mechanical aortic valve replacement: Code(s): Z95.2 - Presence of prosthetic heart valve Status: Acute Assessment and Plan: Patient has an [place] mechanical aortic valve replacement which is low risk for thrombotic and embolic events. Typically we may be use heparin prior to surgery, but postop we typically simply resume the warfarin. Can be discharged today. Patient usually takes warfarin 6 mg daily, 7 mg twice a week. Recommend warfarin 8 mg daily for 3 days then back to usual dose. INR in 1 week. (4) CHF (congestive heart failure): Code(s): I50.9 - Heart failure, unspecified Status: Acute Assessment and Plan: This is not true systolic or diastolic heart failure. EF greater than 70%. Is related to his heart block. On IV Lasix, improving. CXR today showed clear lungs. Subjective Date/time seen: 09/21/21 08:47 Interval history: 66-year-old admitted with shortness breath and found to be in heart block and CHF. H/O [place] mechanical AV replacement and CABG 2014. Once clinical episode of a fib 2019. Echo this adm shows EF > 70%. 09/19/2021: Feels okay. No chest pain, shortness breath, dizziness or syncope while at rest. 09/20/2021: Biotronik Dual chamber pacemaker implant by Dr. Vega Date of service 09/21/2021: Patient is doing after his pacemaker implant yesterday. Denies shortness of breath at rest. Urinating a lot due to his IV Lasix. Review of Systems Constitutional: Constitutional: Denies weakness ENT: Reports system reviewed and no additional complaints, except as documented Cardiovascular: Cardiovascular: Denies chest pain Respiratory: Respiratory: Denies dyspnea Gastrointestinal: Gastrointestinal: Denies abdominal pain Genitourinary: Genitourinary: Denies dysuria and Reports urinary urgency (Lasix) Musculoskeletal: Musculoskeletal: Reports no additional musculoskeletal complaints Integumentary/Breasts: Skin/Breast: Denies erythema Neurologic: Denies confusion Psychiatric: Psychiatric: Denies behavioral changes Exam Const: General: comfortable and no acute distress HENMT: Mouth: Yes moist mucous membranes Eyes: EOM: EOMs intact bilaterally Neck: Neck: supple Resp: Effort & Inspection: normal respiratory effort Auscultation: rales (Few scattered rales in bases) Cardio: Rate: regular rate Rhythm: regular rhythm Other: Moffat valve click GI: GI Palp: Yes Soft to palpation and No Tenderness to palpation present (GI) Skin: General skin exam: normal color Wounds: wounds noted Other: Pacemaker incision is covered with a clean dry bandage Neuro: Cognition (Neuro): normal cognition Speech: normal speech Extrem: General: no edema Psych: Mental Status: mental status grossly normal Affect: normal affect Objective Data Vital Signs Vital Signs: Vital Signs - 24 hr 09/20/21 10:00 09/20/21 11:53 09/20/21 12:00 Temperature 97.6 F Pulse Rate 42 L 40 L 41 L Respiratory Rate 19 Blood Pressure 129/57 L Pulse Oximetry 97 09/20/21 15:02 09/20/21 15:05 09/20/21 15:15 Temperature 98.0 F Pulse Rate 74 64 74 Respiratory Rate 18 20 Blood Pressure 123/95 H 143/73 H Pulse Oximetry 93 92 09/20/21 15:30 09/20/21 15:45 09/20/21 16:00 Tem
--- NOTE | 2021-09-21 11:34 | PM.DS ---
DS: Admitting Diagnosis Discharge Date 09/21/2021 Admitting Diagnosis Shortness of breath bradycardia DS: Discharge Diagnosis Discharge Diagnosis (1) Third degree heart block: Code(s): I44.2 - Atrioventricular block, complete Status: Acute Assessment and Plan: High-grade AV block could be related to beta-junior and or structural heart disease, ischemic heart disease. -patient has been hemodynamically stable with adequate blood pressures -he has been complaining of shortness of breath -chest x-ray did show pulmonary edema, patient diuresed well -cardiology has been consulted, await evaluation and recommendation -patient is off Coreg -may require permanent pacemaker, will leave it to the crane crew supervisor to decide Chief Complaint: Shortness of breath bradycardia Narrative: Patient presents to the emergency department from home for shortness of breath. Patient states has been having increasing shortness of breath over the past 5 days. He states the shortness breath is worse with lying flat he also states that his heart rate has been low in 30s and 40s over the weekend. He had gone to his PCP very he had an EKG done which showed heart block and hence was sent to the ED for further evaluation. Denies any fever or chills or any chest pain. Denies any leg swelling. He does have a history of aortic valve replacement and 3 stents placed and is followed by Dr. Broderick states he is on Coumadin which she has been taking. He was admitted recently in June 2021 with COVID pneumonia. He had issues with bradycardia that time and his Coreg was discontinued at the time of discharge. He later followed up with Dr. Garibay and his Coreg was resumed back until day before yesterday when he was noted to have bradycardia when his Coreg dose was lowered to 3.125 mg twice daily. 09/19/2021 interval history: patient with shortness of bread bradycardia is found to third-degree heart block, seen by cardiology recommending biventricular pacemaker however patient has history of mechanical aortic valve, and chronically anticoagulated with warfarin upon arrival patient INR was supratherapeutic, patient is given vitamin K and today patient INR is 1.7 cardiology recommending INR to be below 1.5 will continue to monitor and further recommendation to follow, remains clinically stable currently denies any complaint of chest pain or shortness of breath dizziness, (2) CHF (congestive heart failure): Code(s): I50.9 - Heart failure, unspecified Status: Acute Assessment and Plan: Congestive heart failure likely related to severe bradycardia complete heart block -patient was being diuresed -continue lisinopril, Lasix and amlodipine. -discontinue Coreg (3) Supratherapeutic INR: Code(s): R79.1 - Abnormal coagulation profile Status: Acute Assessment and Plan: Patient on Coumadin for mechanical heart valve -patient was given vitamin K 1 mg IV in the ER per Cardiology -INR remains 5.0 this morning (4) Shortness of breath: Code(s): R06.02 - Shortness of breath Status: Acute Assessment and Plan: Shortness of breath improved with diuresis, likely related to pulmonary edema -, continue to monitor (5) DVT prophylaxis: Code(s): Z29.9 - Encounter for prophylactic measures, unspecified Status: Acute Assessment and Plan: Supratherapeutic INR DS: Summary Hospital Course Reason for hospitalization: Chief Complaint: Shortness of breath bradycardia Narrative: Patient presents to the emergency department from home for shortness of breath. Patient states has been having increasing shortness of breath over the past 5 days. He states the shortness breath is worse with lying flat he also states that his heart rate has been low in 30s and 40s over the weekend. He had gone to his PCP very he had an EKG done which showed heart block and hence was sent to the ED for further evaluation. Denies any fever or chills
[2021-09-21 12:40] LABS: Glucose Point of Care 99 mg/dl (65-105)
--- NOTE | 2021-09-23 17:47 | PM.IMPN ---
Progress Note: A&P Assessment and Plan (1) Third degree heart block: Code(s): I44.2 - Atrioventricular block, complete Status: Acute Assessment and Plan: High-grade AV block could be related to beta-junior and or structural heart disease, ischemic heart disease. -patient has been hemodynamically stable with adequate blood pressures -he has been complaining of shortness of breath -chest x-ray did show pulmonary edema, patient diuresed well -cardiology has been consulted, await evaluation and recommendation -patient is off Coreg -may require permanent pacemaker, will leave it to the dye house worker to decide Chief Complaint: Shortness of breath bradycardia Narrative: Patient presents to the emergency department from home for shortness of breath. Patient states has been having increasing shortness of breath over the past 5 days. He states the shortness breath is worse with lying flat he also states that his heart rate has been low in 30s and 40s over the weekend. He had gone to his PCP very he had an EKG done which showed heart block and hence was sent to the ED for further evaluation. Denies any fever or chills or any chest pain. Denies any leg swelling. He does have a history of aortic valve replacement and 3 stents placed and is followed by Dr. Broderick states he is on Coumadin which she has been taking. He was admitted recently in June 2021 with COVID pneumonia. He had issues with bradycardia that time and his Coreg was discontinued at the time of discharge. He later followed up with Dr. Garibay and his Coreg was resumed back until day before yesterday when he was noted to have bradycardia when his Coreg dose was lowered to 3.125 mg twice daily. 09/19/2021 interval history: patient with shortness of bread bradycardia is found to third-degree heart block, seen by cardiology recommending biventricular pacemaker however patient has history of mechanical aortic valve, and chronically anticoagulated with warfarin upon arrival patient INR was supratherapeutic, patient is given vitamin K and today patient INR is 1.7 cardiology recommending INR to be below 1.5 will continue to monitor and further recommendation to follow, remains clinically stable currently denies any complaint of chest pain or shortness of breath dizziness, 09/20/2021 interval history: patient with shortness of bread bradycardia is found to third-degree heart block, seen by cardiology recommending biventricular pacemaker however patient has history of mechanical aortic valve, and chronically anticoagulated with warfarin upon arrival patient INR was supratherapeutic, patient is given vitamin K and today patient INR is 1.3,Patient was seen by Cardiology and was taken to cardiac slab inspector and a biventricular pacemaker was placed, remains clinically stable currently denies any complaint of chest pain or shortness of breath dizziness, (2) CHF (congestive heart failure): Code(s): I50.9 - Heart failure, unspecified Status: Acute Assessment and Plan: Congestive heart failure likely related to severe bradycardia complete heart block -patient was being diuresed -continue lisinopril, Lasix and amlodipine. -discontinue Coreg (3) Supratherapeutic INR: Code(s): R79.1 - Abnormal coagulation profile Status: Acute Assessment and Plan: Patient on Coumadin for mechanical heart valve -patient was given vitamin K 1 mg IV in the ER per Cardiology -INR remains 5.0 this morning (4) Shortness of breath: Code(s): R06.02 - Shortness of breath Status: Acute Assessment and Plan: Shortness of breath improved with diuresis, likely related to pulmonary edema -, continue to monitor (5) DVT prophylaxis: Code(s): Z29.9 - Encounter for prophylactic measures, unspecified Status: Acute Assessment and Plan: Supratherapeutic INR Additional Plan Discussed with patient updated with his condition and plan of care. I did tell h
== END 2021-09-21 13:07 | disposition home or self-care (01) | DRG 242 ==
LOC: ANHED 19:52 → ANHICU 21:57 → ANHCPC 09-18 15:57
PROVIDERS: Internal Medicine; Internal Medicine Cardiovascular Disease; Specialist; Admitting Provider Family Medicine; Emergency Provider Emergency Medicine; PCP Family Medicine; Visit Provider Family Medicine
PROC: 0JH606Z Insertion of Pacemaker, Dual Chamber into Chest Subcutaneous Tissue and Fascia, Open Approach (ICD-10-PCS; CPT 33208; principal; 2021-09-20 13:00)
DX: I44.2 Atrioventricular block, complete (principal); I50.31 Acute diastolic (congestive) heart failure; E78.5 Hyperlipidemia, unspecified; Z20.822 Contact with and (suspected) exposure to COVID-19; I10 Essential (primary) hypertension; E83.42 Hypomagnesemia; I25.10 Atherosclerotic heart disease of native coronary artery without angina pectoris; E11.9 Type 2 diabetes mellitus without complications; R79.1 Abnormal coagulation profile; T45.515A Adverse effect of anticoagulants, initial encounter; Z79.01 Long term (current) use of anticoagulants; E66.9 Obesity, unspecified; Z68.34 Body mass index [BMI] 34.0-34.9, adult; Z95.2 Presence of prosthetic heart valve; Z87.891 Personal history of nicotine dependence; Z95.1 Presence of aortocoronary bypass graft; Z86.16 Personal history of COVID-19; Z79.84 Long term (current) use of oral hypoglycemic drugs
CPT/HCPCS: 33208; 36415; 71045; 71046; 80048; 80053; 82948; 83735; 83880; 84100; 84443; 84484; 85025; 85610; 85730; 93005; 93306; 96365; 96372; 96375; 96376; 99285; A9270; C1779; C1785; C9803; G0378; J1644; J1940; J2250; J3010; J3370; J3430; J3475; J7030; J7040; U0003; U0005

== ENCOUNTER 2022-05-14 07:16 | Outpatient (CLI) | payer MEDICARE, SELFPAY ==
[2022-05-14 07:43] LABS: Basophils Absolute Auto 0.04 K/mm3 (0.00-0.10); Basophils Percent Auto 0.5 % (0.0-1.0); Eosinophils Absolute Auto 0.28 K/mm3 (0.02-0.50); Eosinophils Percent Auto 3.5 % (1.0-6.0); Hematocrit 38.8 % (37.0-46.0); Hemoglobin 12.6 g/dL (12.4-15.3); Immature Granulocyte Absolute 0.03 K/mm3 (0.00-0.00); Immature Granulocyte Percent A 0.4 % (0.0-0.0); Lymphocytes Absolute Auto 0.98 K/mm3 (1.10-4.50); Lymphocytes Percent Auto 12.4 % (18.0-42.0); Mean Corpuscular HGB Conc 32.5 g/dL (32.0-36.0); Mean Corpuscular Hemoglobin 30.2 pg (27.0-31.0); Mean Platelet Volume 9.6 fl (8.7-11.0); Monocytes Absolute Auto 0.66 K/mm3 (0.10-0.90); Monocytes Percent Auto 8.3 % (2.0-11.0); Neutrophils Absolute Auto 5.9 K/mm3 (1.7-7.2); Neutrophils Percent Auto 74.9 % (50.0-70.0); Platelet Count Result 171 K/mm3 (150-420); Red Blood Count 4.17 M/mm3 (4.70-6.10); Red Cell Distribution Width 13.7 % (11.6-14.4); White Blood Count 7.9 K/mm3 (4.8-10.8)
[2022-05-14 10:13] LABS: Anion Gap 6 mmol/L (8-16); Blood Urea Nitrogen 11 mg/dL (7-18); Carbon Dioxide 29 mmol/L (21-32); Chloride 104 mmol/L (98-108); Potassium 4.6 mmol/L (3.5-5.1); Sodium 139 mmol/L (136-145)
[2022-05-14 10:14] LABS: Alanine Aminotransferase 34 U/L (16-63); Aspartate Amino Transferase 23 U/L (15-37); Bilirubin,Total 0.5 mg/dL (0.00-1.00); Calcium 8.7 mg/dL (8.5-10.1); Estimated Glomerular Filt Rate > 60; Glucose 120 mg/dL (70-99); Osmolality Calculated 288 mOsm/kg (285-295); Total Protein 6.5 g/dL (6.4-8.2)
[2022-05-14 10:15] LABS: Alkaline Phosphatase 97 U/L (46-116); Cholesterol 120 mg/dL (0-200); HDL Direct 36 mg/dL (40-60); Prostate Specific Antigen 0.7 ng/mL (< OR = 4.0)
[2022-05-14 10:31] LABS: Hemoglobin A1C 6.1 % (<5.7)
[2022-05-14 10:33] LABS: LDL Cholesterol Calculated 72 mg/dL (<130); Triglycerides 62 mg/dL (0-150)
[2022-05-14 13:10] LABS: Creatinine Urine < 13.00 mg/dL (40-278); Microalbumin Urine Random 4.2 mg/L
== END 2022-05-14 07:17 | disposition home or self-care (01) ==
LOC: CHSLAB 07:17
PROVIDERS: PCP Nurse Practitioner Family; Visit Provider Nurse Practitioner Family
DX: E78.5 Hyperlipidemia, unspecified (principal); E11.9 Type 2 diabetes mellitus without complications; I10 Essential (primary) hypertension; N40.0 Benign prostatic hyperplasia without lower urinary tract symptoms
CPT/HCPCS: 36415; 80053; 80061; 82043; 83036; 84153; 85025

== ENCOUNTER 2023-08-12 14:51 | Outpatient (CLI) | payer MEDICARE, SELFPAY ==
--- NOTE | ~2023-08-12 | XR_ITS ---
EXAMINATION: XR chest 2V DATE: 08/12/2023 15:18 INDICATION: Atherosclerotic heart disease of the [place] coronary arteries TECHNIQUE: PA and lateral views of the chest were obtained. COMPARISON: Chest radiograph dated 09/21/2021 FINDINGS: Calcified nodule projecting over the apex of the right hemidiaphragm consistent with old granulomatou s disease. No other airspace opacities, pulmonary edema, pleural effusion or pneumothorax. Mild cardi omegaly. Median sternotomy wires, ostial markers and mediastinal surgical clips consistent with prior coronary artery bypass grafting. Aortic valve repair. Dual lead pacemaker seen with leads projecting over the expected locations of the right atrium and right ventricle. Mild thoracic spondylosis. IMPRESSION: 1. No acute cardiopulmonary disease. 2. Mild cardiomegaly with dual-lead cardiac pacemaker and changes of prior aortic valve repair and co ronary artery bypass grafting. Reviewed, dictated and finalized at location A. ROOM MAID IMPRESSION: 1. No acute cardiopulmonary disease. 2. Mild cardiomegaly with dual-lead cardiac pacemaker and changes of prior aort ic valve repair and coronary artery bypass grafting.
[2023-08-12 15:12] LABS: Basophils Absolute Auto 0.07 K/mm3 (0.00-0.10); Eosinophils Absolute Auto 0.18 K/mm3 (0.02-0.50); Eosinophils Percent Auto 2.6 % (1.0-6.0); Hematocrit 30.2 % (37.0-46.0); Hemoglobin 8.7 g/dL (12.4-15.3); Immature Granulocyte Absolute 0.03 K/mm3 (0.00-0.00); Immature Granulocyte Percent A 0.4 % (0.0-0.0); Lymphocytes Percent Auto 11.7 % (18.0-42.0); Mean Corpuscular HGB Conc 28.8 g/dL (32.0-36.0); Mean Corpuscular Hemoglobin 23.8 pg (27.0-31.0); Mean Corpuscular Volume 82.5 fL (78.0-102.0); Mean Platelet Volume 9.9 fl (8.7-11.0); Monocytes Absolute Auto 0.69 K/mm3 (0.10-0.90); Monocytes Percent Auto 10.1 % (2.0-11.0); Neutrophils Absolute Auto 5.1 K/mm3 (1.7-7.2); Neutrophils Percent Auto 74.2 % (50.0-70.0); Platelet Count Result 244 K/mm3 (150-420); Red Blood Count 3.66 M/mm3 (4.70-6.10); Red Cell Distribution Width 20.2 % (11.6-14.4); White Blood Count 6.8 K/mm3 (4.8-10.8)
[2023-08-12 15:57] LABS: Alanine Aminotransferase 21 U/L (16-63); Albumin Level 4.1 g/dL (3.4-5.0); Alkaline Phosphatase 99 U/L (46-116); Anion Gap 5 mmol/L (8-16); Aspartate Amino Transferase 18 U/L (15-37); Blood Urea Nitrogen 14 mg/dL (7-18); Carbon Dioxide 32 mmol/L (21-32); Chloride 102 mmol/L (98-108); Cholesterol 97 mg/dL (0-200); Estimated Glomerular Filt Rate 58; Glucose 130 mg/dL (70-99); HDL Direct 31 mg/dL (40-60); LDL Cholesterol Calculated 56 mg/dL (<130); NT Pro B Type Natriuretic Pept 675 pg/mL (0-125); Osmolality Calculated 290 mOsm/kg (285-295); Potassium 5.6 mmol/L (3.5-5.1); Sodium 139 mmol/L (136-145); Total Protein 6.9 g/dL (6.4-8.2); Triglycerides 51 mg/dL (0-150)
== END 2023-08-12 14:52 | disposition home or self-care (01) ==
LOC: CHSLAB 14:54
PROVIDERS: PCP Family Medicine; Visit Provider Family Medicine
DX: I25.10 Atherosclerotic heart disease of native coronary artery without angina pectoris (principal); R06.02 Shortness of breath; I51.7 Cardiomegaly; Z95.0 Presence of cardiac pacemaker
CPT/HCPCS: 36415; 71046; 80053; 80061; 83880; 84484; 85025

== ENCOUNTER 2023-10-19 01:32 | Day surgery (SDC) | payer MEDICARE, SELFPAY ==
[2023-10-12 14:25] VITALS: BMI 35.9
--- NOTE | 2023-10-13 10:11 | PC.NURSE ---
Spoke with patient regarding medication warfarin. Pt. verbalizes understanding that the last dose of warfarin is to be taken on 10/14/2023 and the Endoscopist will instruct them when to restart after the procedure. Chart reviewed by Dr. Gomez anesthesia and no further testing needed, ok to proceed with procedure.
--- NOTE | 2023-10-16 09:59 | SUR.PREOP ---
Patient called regarding upcoming procedure. Voicemail left regarding appointment times.
[2023-10-19 12:24] VITALS: BP 176/79; PULSE 70; RESP 20; TEMP 36.6; O2SAT 95
[2023-10-19] MEDS: VANCOMYCIN 1,500 MG/NS 500 ML BAG 250 MG IVPB (12:30)
[2023-10-19] MEDS: LACTATED RINGERS 1,000 ML 150 ML IV CONT (12:35)
--- NOTE | 2023-10-19 12:56 | WPDANESEPPF ---
Anes - Initial Pre Proc Eval Procedure: Operation Date: 10/19/23 15:00 Proposed Procedures p Esophagogastroduodenoscopy & Colonoscopy - Morgan Holbrook MD Date/Time: 10/19/23 12:56 Surgeon: Morgan Holbrook MD Pre Op Diagnosis: anemia Patient Data Age: 68 Gender: M Height: 1.73 m Weight: 105.2 kg Last Vital Signs Temp 97.9 F 10/19/23 12:24 Pulse 70 10/19/23 12:24 Resp 20 10/19/23 12:24 BP 176/79 H 10/19/23 12:24 Pulse Ox 95 10/19/23 12:24 O2 Del Method Room Air 10/19/23 12:24 Allergies Allergy/AdvReac Type Severity Reaction Status Date / Time Penicillins Allergy Intermediate Rash Verified 10/19/23 12:19 Home Medications Medication Instructions Recorded Confirmed Type aspirin 81 mg tablet,delayed 81 mg PO DAILY 08/22/19 10/12/23 History release (Adult Low Dose Aspirin) atorvastatin 80 mg tablet 80 mg PO HS 08/22/19 10/12/23 History ezetimibe 10 mg tablet (Zetia) 10 mg PO DAILY 08/22/19 10/12/23 History carvedilol 6.25 mg tablet 6.25 mg PO Q12H 11/11/21 10/19/23 History warfarin 6 mg tablet 6 mg PO QMWF 11/11/21 10/12/23 History isosorbide mononitrate 30 mg 30 tablet PO HS 05/13/22 10/12/23 History tablet,extended release 24 hr nitroglycerin 0.4 mg sublingual 0.4 mg sublingual PRN PRN Chest 05/13/22 10/12/23 History tablet Pain metformin 1,000 mg tablet See Rx Instructions .Route 12/05/22 10/19/23 Rx .COMPLEX #180 tabs tamsulosin 0.4 mg capsule 0.4 mg PO DAILY #90 caps 04/27/23 10/12/23 Rx lactulose 10 gram/15 mL oral 10 g (15 mL) PO DAILY PRN 05/14/23 10/12/23 Rx solution constipation #237 mL ferrous sulfate 325 mg (65 mg 325 mg PO DAILY #90 tabs 08/13/23 10/12/23 Rx iron) tablet torsemide 10 mg tablet 10 mg PO QAM #90 tabs 08/13/23 10/12/23 Rx blood sugar diagnostic (Accu-Chek #100 ea 09/07/23 09/23/23 Rx Guide test strips) empagliflozin 10 mg tablet 10 mg PO DAILY 10/12/23 10/12/23 History (Jardiance) isosorbide mononitrate 60 mg 60 mg PO QAM 10/12/23 10/12/23 History tablet,extended release 24 hr sacubitril 24 mg-valsartan 26 mg 1 tablet PO BID 10/12/23 10/19/23 History tablet (Entresto) warfarin 2 mg tablet 2 mg PO QMWF 10/12/23 10/12/23 History warfarin 6 mg tablet 6 mg PO [id number] 10/12/23 10/12/23 History Patient hx anesthesia problems: none Family hx anesthesia problems: none Results Review: All pre-operative results and documents have been reviewed as part of the pre-operative evaluation. [facility] Past Medical History Medical History (Updated 09/23/23 @ 09:44 by EVY Richmond) Anemia Anticoagulated on Coumadin CAD (coronary artery disease) Carpal tunnel syndrome DM2 (diabetes mellitus, type 2) Hyperlipidemia Hypertension Overweight Surgical History Surgical History H/O mechanical aortic valve replacement History of carpal tunnel release Left hand Hx of artificial heart valve replacement Hx of cataract surgery S/P triple vessel bypass Family History Family History Father , Age 81 Diabetes mellitus Lung cancer CAD (coronary artery disease) Mother , Age 89 Rheumatoid arthritis Social History Social History Social History: The patient lives at home with his . He has 1 biological child he is a former smoker. 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 He is a former smoker and also former smokeless tobacco. He denies any alcohol marijuana or illicit drugs. His is the durable power criminal attorney for healthcare. Code status full code Smoking status: Former smoker Tobacco type: smokeless tobacco Smokeless tobacco user: chewing tobacco Additional smoking assessment comments: Quit Smokeless tobacco in 1999. Used for 25 years Alcohol intake: current Substance use: never Substance use type: does not use
--- NOTE | 2023-10-19 13:29 | WPDHPUPDATE1 ---
History and Physical Update Update Date/Time: 10/19/23 13:29 History and Physical has been reviewed, including an updated exam of the patient. There are NO changes in the patient's condition. Risks, benefits, and alternatives have been discussed and questions answered. Patient agrees to proceed with procedure.
--- NOTE | 2023-10-19 13:57 | SUR.OPER ---
EGD START 1338, END 1343 COLONOSCOPY START 1348, END 1357
[2023-10-19 13:59] VITALS: BP 110/62; PULSE 71; RESP 19; O2SAT 96
[2023-10-19 14:09] VITALS: BP 107/60; PULSE 70; RESP 20; O2SAT 97
[2023-10-19 14:19] VITALS: BP 124/74; PULSE 71; RESP 21; O2SAT 100
[2023-10-19 14:50] LABS: Glucose Point of Care 113 mg/dl (65-105)
== END 2023-10-19 14:44 | disposition home or self-care (01) ==
PROVIDERS: PCP Family Medicine; Visit Provider Internal Medicine Gastroenterology
PROC: 0DJ08ZZ Inspection of Upper Intestinal Tract, Via Natural or Artificial Opening Endoscopic (ICD-10-PCS; CPT 43235; principal; 2023-10-19 15:00)
DX: Z12.11 Encounter for screening for malignant neoplasm of colon (principal); D12.3 Benign neoplasm of transverse colon; K64.8 Other hemorrhoids; D64.9 Anemia, unspecified; K22.70 Barrett's esophagus without dysplasia; K29.50 Unspecified chronic gastritis without bleeding; I25.10 Atherosclerotic heart disease of native coronary artery without angina pectoris; E11.9 Type 2 diabetes mellitus without complications; E78.5 Hyperlipidemia, unspecified; I10 Essential (primary) hypertension; Z95.1 Presence of aortocoronary bypass graft; Z95.2 Presence of prosthetic heart valve; Z87.891 Personal history of nicotine dependence; E66.9 Obesity, unspecified; Z68.35 Body mass index [BMI] 35.0-35.9, adult; Z79.01 Long term (current) use of anticoagulants; Z79.82 Long term (current) use of aspirin; Z79.84 Long term (current) use of oral hypoglycemic drugs
CPT/HCPCS: 45385; 43239; 82948; 88305; 88342; J2704; J3370; J7120

== ENCOUNTER 2024-05-29 00:37 | Emergency (ER) | payer MEDICARE, SELFPAY ==
[2024-05-29 00:37] VITALS: BP 148/75; PULSE 70; RESP 18; TEMP 36.6; O2SAT 70
--- NOTE | 2024-05-29 01:41 | ED.GENADULT ---
HPI - General Adult General Chief complaint: Unspecified Stated complaint: wants pacemaker looked at Time Seen by Provider: 05/29/24 00:59 History of Present Illness HPI narrative: patient with the significant cardiovascular history including CABG had a pacemaker May 25 2024 at [facility] by Emil piña.? He has been recovering well at home and states that his cardiovascular symptoms -shortness of breath and chest pain are absent or even improved compared to previous.? He presents today because he noticed that he was having some oozing from the incision site for the new pacemaker in his superior left chest.? He did not have any new or different pain he was just worried about the incision site.? He tried to do a dressing change at home but the wound continued to ooze and so he presented here today for follow-up.? he states that the amount of ecchymosis and swelling around the pacemaker implantation is stable and unchanged from previous.? ?? he denies chest pain or shortness of breath? Related Data Home Medications Medication Instructions Recorded Confirmed aspirin 81 mg tablet,delayed 81 mg PO DAILY 08/22/19 05/03/24 release (Adult Low Dose Aspirin) atorvastatin 80 mg tablet 80 mg PO HS 08/22/19 05/03/24 ezetimibe 10 mg tablet (Zetia) 10 mg PO DAILY 08/22/19 05/03/24 carvedilol 6.25 mg tablet 6.25 mg PO Q12H 11/11/21 05/03/24 warfarin 6 mg tablet 6 mg PO QMWF 11/11/21 05/03/24 isosorbide mononitrate 30 mg 30 tablet PO HS 05/13/22 05/03/24 tablet,extended release 24 hr nitroglycerin 0.4 mg sublingual 0.4 mg sublingual PRN PRN Chest 05/13/22 05/03/24 tablet Pain isosorbide mononitrate 60 mg 60 mg PO QAM 10/12/23 05/03/24 tablet,extended release 24 hr sacubitril 24 mg-valsartan 26 mg 1 tablet PO BID 10/12/23 05/03/24 tablet (Entresto) warfarin 2 mg tablet 2 mg PO QMWF 10/12/23 05/03/24 spironolactone 25 mg tablet 12.5 mg PO DAILY 05/03/24 05/03/24 Allergies Allergy/AdvReac Type Severity Reaction Status Date / Time Penicillins Allergy Intermediate Rash Verified 05/03/24 08:39 [facility] Past Medical History Medical History Anemia Anticoagulated on Coumadin CAD (coronary artery disease) Carpal tunnel syndrome DM2 (diabetes mellitus, type 2) Hyperlipidemia Hypertension Overweight Surgical History Surgical History H/O mechanical aortic valve replacement History of carpal tunnel release Left hand Hx of artificial heart valve replacement Hx of cataract surgery S/P triple vessel bypass Family History Family History Father , Age 81 Diabetes mellitus Lung cancer CAD (coronary artery disease) Mother , Age 89 Rheumatoid arthritis Social History Social History Social History: The patient lives at home with his . He has 1 biological child he is a former smoker. 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 He is a former smoker and also former smokeless tobacco. He denies any alcohol marijuana or illicit drugs. His is the durable power bankruptcy attorney for healthcare. Code status full code Smoking status: Former smoker Tobacco type: smokeless tobacco Smokeless tobacco user: chewing tobacco Additional smoking assessment comments: Quit Smokeless tobacco in 1999. Used for 25 years Alcohol intake: current Substance use: never Substance use type: does not use Lack of Transportation: No Lack of Food: Never True Current Housing: I Have Housing Concerned About Future Housing: No Difficulty Paying Gas/Electric Bills: No Difficulty Paying for Meds: No Currently Unemployed: No Education: High School Diploma/GED Difficulty w/ Childcare or Family Care: No Living arrangements: alone Additional living arrangements comments: . 1 adul
[2024-05-29 01:54] VITALS: BP 140/79; PULSE 78; RESP 16; O2SAT 95
== END 2024-05-29 01:54 | disposition home or self-care (01) ==
PROVIDERS: Emergency Provider Family Medicine; PCP Family Medicine
DX: Z48.01 Encounter for change or removal of surgical wound dressing (principal); I25.810 Atherosclerosis of coronary artery bypass graft(s) without angina pectoris; E11.9 Type 2 diabetes mellitus without complications; E78.5 Hyperlipidemia, unspecified; I10 Essential (primary) hypertension; Z79.899 Other long term (current) drug therapy; Z79.82 Long term (current) use of aspirin; Z79.01 Long term (current) use of anticoagulants; Z87.891 Personal history of nicotine dependence; Z95.0 Presence of cardiac pacemaker
CPT/HCPCS: 99282